=== PATIENT | male | born 1955 | race Caucasian/White ===

== ENCOUNTER 2018-10-03 17:12 | Inpatient (IN) | payer OTHER ==
[~2018-10-03] VITALS: Ht 175.3 cm; Wt 119.4 kg
[2018-10-03] MEDS ORDERED: fentaNYL PF VIAL 100 MCG/2 ML VIAL IV ONE (18:45)
[2018-10-03] MEDS ORDERED: PIPERACILLIN/TAZOBACTAM 3.375 GM in IV NORMAL SALINE 50ML 50 ML IV ONE (18:45)
[2018-10-03] MEDS ORDERED: VANCOMYCIN 1GM IVPB FOR OMNI 250 ML IV ONE (18:45)
--- NOTE | 2018-10-03 18:55 | PHYS DOC ---
Past Medical History Past Medical History: Arrhythmia, CHF, COPD, Diabetes-Type II, DVT, High Cholesterol, Hypertension Additional Past Medical Histor: PE (ERIC DE LA PAZ) Past Surgical History: Other Additional Past Surgical Histo: R foot bone spur,ICD (ERIC DE LA PAZ) Alcohol Use: Rarely Drug Use: Marijuana (ERIC DE LA PAZ) Adult General Chief Complaint Chief Complaint: LOWER EXTREMITY SWELLING HPI HPI Patient is a 63 year old M who is here with extensive right lower leg redness, swelling and pain. He reports that this all started last week and he denies any known injury. He went to see his PCP, Dr. Poole, on the and he had a PCN shot and was started on Augmentin. He saw him again yesterday the and he added Clindamycin. When they called today to say it was worse, he recommended they come to ER. Pt has had a prior DVT and PE. He is on coumadin and per report he recently held his medicine for a couple of days because his INR was very high. Pt is also diabetic and has hx of CHF. Pt denies CP or SOB. He does feel weaker then normal and states his leg is very painful. (ERIC DE LA PAZ) Review of Systems Review of Systems Constitutional: Denies fever or chills. Reports weakness Respiratory: Denies cough or shortness of breath Cardiovascular: Denies chest pain GI: Denies abdominal pain, nausea, vomiting, bloody stools or diarrhea : Denies dysuria or hematuria Musculoskeletal: Denies back pain. Reports R lower leg pain from below knee to toes. Integument: Reports redness of lower leg and foot with sores. Neurologic: Denies headache, focal weakness or sensory changes Endocrine: Denies polyuria or polydipsia All other systems were reviewed and found to be within normal limits, except as documented in this note. (ERIC DE LA PAZ) Current Medications Current Medications Current Medications Medications (Trade) Dose Ordered Sig/Lily Start Time Stop Time Status Last Admin Dose Admin Fentanyl Citrate (Fentanyl 2ml Vial) 50 mcg 1X ONCE 10/03/18 18:45 10/03/18 18:46 DC 10/03/18 19:02 50 MCG Piperacillin Sod/ Tazobactam Sod 3.375 gm/Sodium Chloride 50 ml @ 100 mls/hr 1X ONCE 10/03/18 18:45 10/03/18 19:14 DC 10/03/18 19:29 100 MLS/HR Vancomycin HCl 250 ml @ 250 mls/hr 1X ONCE 10/03/18 18:45 10/03/18 19:44 DC 10/03/18 20:21 250 MLS/HR (ALANNA TRUONG DO) Allergies Allergies Allergies Coded Allergies Type Severity Reaction Last Updated Verified [place] And Derivatives Allergy Intermediate "scratchy throat" 10/03/18 Yes (ALANNA TRUONG DO) Physical Exam Physical Exam Constitutional: Well developed, well nourished, no acute distress, non-toxic appearance. Neck: Normal range of motion, no tenderness, supple, no stridor. Cardiovascular:Heart rate regular rhythm, no murmur Lungs & Thorax: Bilateral breath sounds clear to auscultation Abdomen: Bowel sounds normal, soft, no tenderness, no masses, no pulsatile masses. Skin: Erythema of lower R leg and foot. Callous on Great toe and on bottom of foot. Blisters with pustules on lower calf. Back: No tenderness, no CVA tenderness. Extremities: Tenderness of R lower leg and foot. Neurologic: Alert and oriented X 3, normal motor function, normal sensory function, no focal deficits noted. Psychologic: Affect normal, judgement normal, mood normal. (ERIC DE LA PAZ) Current Patient Data Vital Signs Vital Signs Date Time Temp Pulse Resp B/P (MAP) Pulse Ox O2 Delivery O2 Flow Rate FiO2 10/03/18 19:30 80 18 138/76 (96) 95 Room Air 10/03/18 18:22 98.4 98.4 (ALANNA TRUONG DO) Lab Values Laboratory Tests Test 10/03/18 18:55 White Blood Count 10.1 x10^3/uL (4.0-11.0) Red Blood Count 3.87 x10^6/uL (4.30-5.70) L Hemoglobin 11.9 g/dL (13.0-17.5) L Hematocrit 35.1 % (39.0-53.0) L Mean Corpuscular Volume 91 fL (79-100) Mean Corpuscular Hemoglobin 31 pg (25-35) Mean Corpuscular Hemoglobin Concent 34 g/dL (31-37) Red Cell Distribution Width 13.6 % (11.5-14.5) Platelet Count 413 x10^3/uL (140-400) H Neutrophils (%) (Auto) 80 % (31-73) H Lymphocytes (%) (Auto) 12 % (24-48) L Monocytes (%) (Auto) 5 % (0-9) Eosinophils (%) (Auto) 2 % (0-3) Basophils (%) (Auto) 1 % (0-3) Neutrophils # (Auto) 8.1 x10^3uL (1.8-7.7) H Lymphocytes # (Auto) 1.2 x10^3/uL (1.0-4.8) Monocytes # (Auto) 0.5 x10^3/uL (0.0-1.1) Eosinophils # (Auto) 0.2 x10^3/uL (0.0-0.7) Basophils # (Auto) 0.1 x10^3/uL (0.0-0.2) Erythrocyte Sedimentation Rate 125 (0-15) H Prothrombin Time 33.2 SEC (11.7-14.0) H Prothrombin Time INR 3.3 (0.8-1.1) H PTT 81 SEC (24-38) H Sodium Level 135 mmol/L (136-145) L Potassium Level 5.0 mmol/L (3.5-5.1) Chloride Level 97 mmol/L (98-107) L Carbon Dioxide Level 23 mmol/L (21-32) Anion Gap 15 (6-14) H Blood Urea Nitrogen 17 mg/dL (8-26) Creatinine 1.0 mg/dL (0.7-1.3) Estimated GFR (Cockcroft-Gault) 76.0 BUN/Creatinine Ratio 17 (6-20) Glucose Level 144 mg/dL (70-99) H Lactic Acid Level 1.4 mmol/L (0.4-2.0) Calcium Level 9.7 mg/dL (8.5-10.1) Total Bilirubin 0.4 mg/dL (0.2-1.0) Aspartate Amino Transferase (AST) 24 U/L (15-37) Alanine Aminotransferase (ALT) 23 U/L (16-63) Alkaline Phosphatase 108 U/L (46-116) C-Reactive Protein, Quantitative 67.2 mg/L (0-3.3) H Total Protein 8.1 g/dL (6.4-8.2) Albumin 3.3 g/dL (3.4-5.0) L Albumin/Globulin Ratio 0.7 (1.0-1.7) L Laboratory Tests 10/03/18 18:55 Laboratory Tests 10/03/18 18:55 Microbiology 10/03/18 Blood Culture - Preliminary, Resulted NO GROWTH AFTER 2 DAYS (ALANNA TRUONG DO) Lab Values Laboratory Tests Test 10/03/18 18:55 White Blood Count 10.1 x10^3/uL (4.0-11.0) Red Blood Count 3.87 x10^6/uL (4.30-5.70) L Hemoglobin 11.9 g/dL (13.0-17.5) L Hematocrit 35.1 % (39.0-53.0) L Mean Corpuscular Volume 91 fL (79-100) Mean Corpuscular Hemoglobin 31 pg (25-35) Mean Corpuscular Hemoglobin Concent 34 g/dL (31-37) Red Cell Distribution Width 13.6 % (11.5-14.5) Platelet Count 413 x10^3/uL (140-400) H Neutrophils (%) (Auto) 80 % (31-73) H Lymphocytes (%) (Auto) 12 % (24-48) L Monocytes (%) (Auto) 5 % (0-9) Eosinophils (%) (Auto) 2 % (0-3) Basophils (%) (Auto) 1 % (0-3) Neutrophils # (Auto) 8.1 x10^3uL (1.8-7.7) H Lymphocytes # (Auto) 1.2 x10^3/uL (1.0-4.8) Monocytes # (Auto) 0.5 x10^3/uL (0.0-1.1) Eosinophils # (Auto) 0.2 x10^3/uL (0.0-0.7) Basophils # (Auto) 0.1 x10^3/uL (0.0-0.2) Erythrocyte Sedimentation Rate 125 (0-15) H Prothrombin Time 33.2 SEC (11.7-14.0) H Prothrombin Time INR 3.3 (0.8-1.1) H PTT 81 SEC (24-38) H Sodium Level 135 mmol/L (136-145) L Potassium Level 5.0 mmol/L (3.5-5.1) Chloride Level 97 mmol/L (98-107) L Carbon Dioxide Level 23 mmol/L (21-32) Anion Gap 15 (6-14) H Blood Urea Nitrogen 17 mg/dL (8-26) Creatinine 1.0 mg/dL (0.7-1.3) Estimated GFR (Cockcroft-Gault) 76.0 BUN/Creatinine Ratio 17 (6-20) Glucose Level 144 mg/dL (70-99) H Lactic Acid Level 1.4 mmol/L (0.4-2.0) Calcium Level 9.7 mg/dL (8.5-10.1) Total Bilirubin 0.4 mg/dL (0.2-1.0) Aspartate Amino Transferase (AST) 24 U/L (15-37) Alanine Aminotransferase (ALT) 23 U/L (16-63) Alkaline Phosphatase 108 U/L (46-116) C-Reactive Protein, Quantitative 67.2 mg/L (0-3.3) H Total Protein 8.1 g/dL (6.4-8.2) Albumin 3.3 g/dL (3.4-5.0) L Albumin/Globulin Ratio 0.7 (1.0-1.7) L Laboratory Tests 10/03/18 18:55 Laboratory Tests 10/03/18 18:55 (ERIC DE LA PAZ) EKG EKG [] (ERIC DE LA PAZ) Radiology/Procedures Radiology/Procedures US neg for DVT Xrays pending (ERIC DE LA PAZ) Course & Med Decision Making Course & Med Decision Making Pertinent Labs and Imaging studies reviewed. (See chart for details) Pt will be admitted for IV antibiotics since he has failed outpt therapy. IV Vanc and Zosyn ordered along with pain medicine. Admitted to Dr. Mckeon, who was condenser setter for Dr. Poole. (ERIC DE LA PAZ) Dragon Disclaimer Dragon Disclaimer This electronic medical record was generated, in whole or in part, using a voice recognition dictation system. (ERIC DE LA PAZ) Departure Departure Impression: Primary Impression: Cellulitis, leg Disposition: ADMITTED INPATIENT Admitting Physician: Minh Mckeon (ERIC DE LA PAZ) Condition: IMPROVED Attending Signature Attending Signature I have reviewed the PA/UNION CARPENTER's note and plan of care. I was available for consultation as needed during the patient's visit in the emergency department. I agree with the clinical impression, plan, and disposition. (ALANNA TRUONG DO) ERIC DE LA PAZ Oct 03, 2018 18:55 ALANNA TRUONG DO Oct 06, 2018 15:47
[2018-10-03 19:09] LABS: BASO # 0.1 x10^3/uL (0.0-0.2); BASO % 1 % (0-3); EOS # 0.2 x10^3/uL (0.0-0.7); EOS % 2 % (0-3); HEMATOCRIT 35.1 % (39.0-53.0); HEMOGLOBIN 11.9 g/dL (13.0-17.5); LYMPH # 1.2 x10^3/uL (1.0-4.8); LYMPH % 12 % (24-48); MEAN CORPUSCULAR HEMOGLOBIN 31 pg (25-35); MEAN CORPUSCULAR HGB CONC 34 g/dL (31-37); MEAN CORPUSCULAR VOLUME 91 fL (79-100); MONO # 0.5 x10^3/uL (0.0-1.1); MONO % 5 % (0-9); NEUT # 8.1 x10^3uL (1.8-7.7); NEUT % 80 % (31-73); PLATELET COUNT 413 x10^3/uL (140-400); RED BLOOD COUNT 3.87 x10^6/uL (4.30-5.70); RED CELL DISTRIBUTION WIDTH 13.6 % (11.5-14.5); WHITE BLOOD COUNT 10.1 x10^3/uL (4.0-11.0)
[2018-10-03 19:26] LABS: CALCIUM 9.7 mg/dL (8.5-10.1)
[2018-10-03 19:32] LABS: ALBUMIN 3.3 g/dL (3.4-5.0); ALBUMIN/GLOBULIN RATIO 0.7 (1.0-1.7); C-REACTIVE PROTEIN 67.2 mg/L (0-3.3); TOTAL BILIRUBIN 0.4 mg/dL (0.2-1.0); TOTAL PROTEIN 8.1 g/dL (6.4-8.2)
--- NOTE | 2018-10-03 19:43 | RAD ---
Right Lower Extremity Venous Doppler Ultrasound History: Red hot tender leg and foot Comparison: None Procedure: Color flow, duplex, spectral analysis and 2D images are obtained with and without compression in the area of the common femoral vein, superficial femoral vein - femoral vein junction, main femoral vein (superficial femoral vein) and popliteal vein. Veins of the proximal calf are also imaged. Findings: There is normal duplex flow, color flow and compressibility of all visualized vein segments. No evidence of deep venous thrombus is present. There is multiple mildly enlarged lymph nodes in the right groin. There is soft tissue edema. Impression: No evidence of DVT. Lymphadenopathy in the right groin likely reactive. Electronically signed by: Be Jones III, MD (10/03/2018 7:40 PM) [facility]
[2018-10-03] MEDS ORDERED: MORPHINE SULFATE 4 MG/ML VIAL. IV ONE (19:45)
[2018-10-03] MEDS ORDERED: ONDANSETRON PF 4 MG/2 ML VIAL. IV PRN (19:45)
[2018-10-03 19:47] LABS: PROTHROMBIN TIME PATIENT 33.2 SEC (11.7-14.0)
[2018-10-03] MEDS ORDERED: DEXTROSE 50% 25 GM / 50ML DISP.SYRIN. IV PRN (20:15)
[2018-10-03 21:05] VITALS: BP 154/57
--- NOTE | 2018-10-03 21:15 | NUR ---
The patient, NIALL FORDE, 63 y/o, M admitted by VALENTÍN STOVALL MD, was given written information regarding hospital policies, unit procedures and contact persons. Valuables were checked and left with him.
[2018-10-03] MEDS: MORPHINE SULFATE 4 MG/ML VIAL. IV PRN (22:13)
--- NOTE | 2018-10-03 22:50 | RAD ---
3 views right foot and 2 views right tibia-fibula HISTORY: Swelling and redness lateral mid tibia fibula wound To his right tibia-fibula AP lateral views There is calcification within the soft tissues. The visualized osseous structures appear normal. IMPRESSION: No acute bony abnormality identified. End impression 3 views right foot: AP lateral oblique views The visualized osseous structures appear normal. IMPRESSION: No acute findings. Electronically signed by: Be Jones III, MD (10/03/2018 10:46 PM) [facility]
[2018-10-03 22:59] VITALS: BP 126/51
[2018-10-04] VITALS (7 sets, daily range): BP systolic 118–143; BP diastolic 51–70
[2018-10-04] MEDS ORDERED: TRAM50TA PO (00:08)
[2018-10-04] MEDS: MORPHINE SULFATE 4 MG/ML VIAL. IV PRN ×3 (00:30→04:36)
--- NOTE | 2018-10-04 02:24 | NUR ---
will bring in medication list this morning.
[2018-10-04] MEDS: oxyCODONE/APAP 5/325 1 TAB TABLET PO PRN (04:57)
[2018-10-04] MEDS ORDERED: MORPHINE SULFATE 2 MG/ML VIAL. IV PRN (05:00)
[2018-10-04] MEDS ORDERED: MORPHINE SULFATE 4 MG/ML VIAL. IV PRN (05:00)
[2018-10-04] MEDS ORDERED: DEXTROSE 50% 25 GM / 50ML DISP.SYRIN. IV PRN (07:30)
[2018-10-04] MEDS: HYDROmorphone 2 MG/ML VIAL IV PRN ×9 (07:31→23:15)
--- NOTE | 2018-10-04 07:33 | PDOC1 ---
History and Physical Date of Admission Date of Admission 10/03/18 Identification/Chief Complaint Chief Complaint Leg Infection Source Source: Patient History of Present Illness History of Present Illness Pt states that he started to get an infection on his right lower leg sometime last week, probably around Sunday. Went to see Dr. Poole on Sunday and was started on Augmentin. Pt states that the infection continued to worsen so came back in on Sunday and antibiotic was changed to Clindamcyin. Redness, and more importantly to patient, pain, continued to worsen which brought pt to ER last night. He was admitted for failed outpatient treatment and started on Vancomycin (although given low dose) and Zosyn. He says that the redness has not improved and that the pain is worsening. He has a few healing ulcerations on his right leg but he says that those only recently came up. He does not remember any specific injury or break in the skin. He does not have history of poor wound healing. He has had a DVT in that right leg years ago with normal U/S this admission. Past Medical History Cardiovascular: HTN, Hyperlipidemia, Other (Cardiomyopathy) Pulmonary: COPD CENTRAL NERVOUS SYSTEM: Periperal neuropathy GI: Constipation Heme/Onc: No pertinent hx Hepatobiliary: No pertinent hx Psych: No pertinent hx Rheumatologic: No pertinent hx Infectious disease: No pertinent hx ENT: No pertinent hx Renal/: No pertinent hx Endocrine: Diabetes Dermatology: No pertinent hx Past Surgical History Past Surgical History: Pacemaker, Cataract Removal Family History Family History: Other (DVT) Social History Smoke: Quit ALCOHOL: none Drugs: None Current Problem List Problem List Problems Medical Problems: (1) Cellulitis, leg Status: Acute Current Medications Current Medications Current Medications Medications (Trade) Dose Ordered Sig/Lily Start Time Stop Time Status Last Admin Dose Admin Dextrose (Dextrose 50%-Water Syringe) 12.5 gm PRN Q15MIN PRN 10/03/18 20:15 Fentanyl Citrate (Fentanyl 2ml Vial) 50 mcg 1X ONCE 10/03/18 18:45 10/03/18 18:46 DC 10/03/18 19:02 50 MCG Morphine Sulfate (Morphine Sulfate) 4 mg PRN Q4HRS PRN 10/04/18 05:00 Ondansetron HCl (Zofran) 4 mg PRN Q8HRS PRN 10/03/18 19:45 10/04/18 19:44 Oxycodone/ Acetaminophen (Percocet 5/325) 1 tab PRN Q6HRS PRN 10/04/18 05:00 10/04/18 04:57 1 TAB Piperacillin Sod/ Tazobactam Sod 3.375 gm/Sodium Chloride 50 ml @ 100 mls/hr 1X ONCE 10/03/18 18:45 10/03/18 19:14 DC 10/03/18 19:29 100 MLS/HR Vancomycin HCl 250 ml @ 250 mls/hr 1X ONCE 10/03/18 18:45 10/03/18 19:44 DC 10/03/18 20:21 250 MLS/HR Allergies Allergies Allergies Coded Allergies Type Severity Reaction Last Updated Verified [place] And Derivatives Allergy Intermediate "scratchy throat" 10/03/18 Yes ROS Review of System CONSTITUTIONAL: No fever or chills EYES: No recent changes SKIN: See HPI CARDIOVASCULAR: No chest pain, syncope, palpitations, or edema RESPIRATORY: No SOB or cough GASTROINTESTINAL: No nausea, abdominal pain +vomiting once 2 weeks ago, pt unsure why NEUROLOGICAL: No headaches or weakness ENDOCRINE: No cold or heat intolerance GENITOURINARY: No urgency or frequency of urination MUSCULOSKELETAL: No back pain or joint pain LYMPHATICS: No enlarged lymph nodes PSYCHIATRIC: No anxiety or depression Physical Exam Physical Exam GEN.: No apparent distress. Alert and oriented. HEENT: Head is normocephalic, atraumatic NECK: Supple. LUNGS: Clear to auscultation. HEART: RRR, S1, S2 present. Peripheral pulses intact ABDOMEN: Soft, nontender. Positive bowel sounds. Distended EXTREMITIES: RLE edematous and erythematous to approximately 4inches below knee. Extremely tender even to slightest touch. Healing wounds on both medial and lateral aspect of RLE NEUROLOGIC: Normal speech, normal tone PSYCHIATRIC: Normal affect, normal mood. SKIN: No ulcerations Vitals Vitals Vital Signs Date Time Temp Pulse Resp B/P (MAP) Pulse Ox O2 Delivery O2 Flow Rate FiO2 10/04/18 05:57 18 94 Room Air 10/04/18 03:00 98.4 74 135/51 (79) 98.4 Labs Labs Laboratory Tests Test 10/03/18 18:55 10/03/18 21:21 White Blood Count 10.1 x10^3/uL (4.0-11.0) Red Blood Count 3.87 x10^6/uL (4.30-5.70) Hemoglobin 11.9 g/dL (13.0-17.5) Hematocrit 35.1 % (39.0-53.0) Mean Corpuscular Volume 91 fL (79-100) Mean Corpuscular Hemoglobin 31 pg (25-35) Mean Corpuscular Hemoglobin Concent 34 g/dL (31-37) Red Cell Distribution Width 13.6 % (11.5-14.5) Platelet Count 413 x10^3/uL (140-400) Neutrophils (%) (Auto) 80 % (31-73) Lymphocytes (%) (Auto) 12 % (24-48) Monocytes (%) (Auto) 5 % (0-9) Eosinophils (%) (Auto) 2 % (0-3) Basophils (%) (Auto) 1 % (0-3) Neutrophils # (Auto) 8.1 x10^3uL (1.8-7.7) Lymphocytes # (Auto) 1.2 x10^3/uL (1.0-4.8) Monocytes # (Auto) 0.5 x10^3/uL (0.0-1.1) Eosinophils # (Auto) 0.2 x10^3/uL (0.0-0.7) Basophils # (Auto) 0.1 x10^3/uL (0.0-0.2) Erythrocyte Sedimentation Rate 125 (0-15) Prothrombin Time 33.2 SEC (11.7-14.0) Prothromb Time International Ratio 3.3 (0.8-1.1) Activated Partial Thromboplast Time 81 SEC (24-38) Sodium Level 135 mmol/L (136-145) Potassium Level 5.0 mmol/L (3.5-5.1) Chloride Level 97 mmol/L (98-107) Carbon Dioxide Level 23 mmol/L (21-32) Anion Gap 15 (6-14) Blood Urea Nitrogen 17 mg/dL (8-26) Creatinine 1.0 mg/dL (0.7-1.3) Estimated GFR (Cockcroft-Gault) 76.0 BUN/Creatinine Ratio 17 (6-20) Glucose Level 144 mg/dL (70-99) Lactic Acid Level 1.4 mmol/L (0.4-2.0) Calcium Level 9.7 mg/dL (8.5-10.1) Total Bilirubin 0.4 mg/dL (0.2-1.0) Aspartate Amino Transf (AST/SGOT) 24 U/L (15-37) Alanine Aminotransferase (ALT/SGPT) 23 U/L (16-63) Alkaline Phosphatase 108 U/L (46-116) C-Reactive Protein, Quantitative 67.2 mg/L (0-3.3) Total Protein 8.1 g/dL (6.4-8.2) Albumin 3.3 g/dL (3.4-5.0) Albumin/Globulin Ratio 0.7 (1.0-1.7) Glucose (Fingerstick) 122 mg/dL (70-99) Laboratory Tests Test 10/03/18 18:55 10/03/18 21:21 White Blood Count 10.1 x10^3/uL (4.0-11.0) Red Blood Count 3.87 x10^6/uL (4.30-5.70) Hemoglobin 11.9 g/dL (13.0-17.5) Hematocrit 35.1 % (39.0-53.0) Mean Corpuscular Volume 91 fL (79-100) Mean Corpuscular Hemoglobin 31 pg (25-35) Mean Corpuscular Hemoglobin Concent 34 g/dL (31-37) Red Cell Distribution Width 13.6 % (11.5-14.5) Platelet Count 413 x10^3/uL (140-400) Neutrophils (%) (Auto) 80 % (31-73) Lymphocytes (%) (Auto) 12 % (24-48) Monocytes (%) (Auto) 5 % (0-9) Eosinophils (%) (Auto) 2 % (0-3) Basophils (%) (Auto) 1 % (0-3) Neutrophils # (Auto) 8.1 x10^3uL (1.8-7.7) Lymphocytes # (Auto) 1.2 x10^3/uL (1.0-4.8) Monocytes # (Auto) 0.5 x10^3/uL (0.0-1.1) Eosinophils # (Auto) 0.2 x10^3/uL (0.0-0.7) Basophils # (Auto) 0.1 x10^3/uL (0.0-0.2) Erythrocyte Sedimentation Rate 125 (0-15) Prothrombin Time 33.2 SEC (11.7-14.0) Prothromb Time International Ratio 3.3 (0.8-1.1) Activated Partial Thromboplast Time 81 SEC (24-38) Sodium Level 135 mmol/L (136-145) Potassium Level 5.0 mmol/L (3.5-5.1) Chloride Level 97 mmol/L (98-107) Carbon Dioxide Level 23 mmol/L (21-32) Anion Gap 15 (6-14) Blood Urea Nitrogen 17 mg/dL (8-26) Creatinine 1.0 mg/dL (0.7-1.3) Estimated GFR (Cockcroft-Gault) 76.0 BUN/Creatinine Ratio 17 (6-20) Glucose Level 144 mg/dL (70-99) Lactic Acid Level 1.4 mmol/L (0.4-2.0) Calcium Level 9.7 mg/dL (8.5-10.1) Total Bilirubin 0.4 mg/dL (0.2-1.0) Aspartate Amino Transf (AST/SGOT) 24 U/L (15-37) Alanine Aminotransferase (ALT/SGPT) 23 U/L (16-63) Alkaline Phosphatase 108 U/L (46-116) C-Reactive Protein, Quantitative 67.2 mg/L (0-3.3) Total Protein 8.1 g/dL (6.4-8.2) Albumin 3.3 g/dL (3.4-5.0) Albumin/Globulin Ratio 0.7 (1.0-1.7) Glucose (Fingerstick) 122 mg/dL (70-99) VTE Prophylaxis Ordered VTE Prophylaxis Devices: No VTE Pharmacological Prophylaxi: Yes Assessment/Plan Assessment/Plan Pt is a 63yo CM admitted for cellulitis with outpatient failure 1)Cellulitis- pt started on Vancomycin and Zosyn last night but given small dose of Vancomycin. Will continue abx with higher dosage of Vancomycin. Will change Morphine to Dilaudid for pain control and have percocet available as well. Pt normally takes Tramadol. U/S WNL LE Doppler pending 2)DM2- BS well controlled in hospital. HbA1C pending. Pt continued on home medications of metformin 500mg TID, Tradjenta 5mg qday, Lantus 32units (in place of Basaglar) QHS. Will hold pt's bydureon Will have SSI available as needed 3)HTN- well controlled. Will continue home medications of Carvedilol 25mg BID, Lisionpril 20mg qday, Spironolactone 25mg 1.5 tabs daily and Lasix 20mg qday 4)Cardiomyopathy- AICD in place. No recent ECHOs in computer 5)HLD- pt continued on Simvastatin 20mg 6)COPD- pt will be on Budesonide and albuterol during hospitalization. Normally takes Tudorza 7)Hx DVT/PE- continued on Warfarin 4mg. INR currently mildly elevated, CTM 8)Diabetic peripheral neuropathy- pt continued on Gabapentin 300mg TID 9)Constipation- will have Miralax available as needed 10)Anemia- mild, CTM 11)Hyponatremia- mild, CTM 12)PEM- mild VALENTÍN STOVALL MD Oct 04, 2018 07:33
[2018-10-04] MEDS: BUDESONIDE 0.5 MG/2 ML NEBU. NEB SCH ×2 (08:00→20:33)
[2018-10-04] MEDS: INSULIN LISPRO 300 UNITS/3 ML INSULN.PEN. SQ SCH ×3 (08:00→17:00)
[2018-10-04] MEDS: VANCOMYCIN PER PHARMACY MC PRN (08:09)
--- NOTE | 2018-10-04 08:13 | NUR ---
Pharmacy Vancomycin Dosing Note S:Consulted to monitor and dose vancomycin started 10/04/18. O:NIALL FORDE is a 63 year old M with Cellulitis Height: 5 feet, 9 inches Weight: 119.9 kg [place] Body Weight: 70.70 Adjusted Body Weight: 90.38 Dosing Weight: Actual Other Antibiotics: zosyn LABS: Last BUN: 17 Last Creatinine: 1 Creatinine Clearance: 99 mL/min Last WBC: 10.1 Last Procalcitonin: Tmax (past 24 hours): 98.4 Microbiology: - I/O: 900/500 Drug Levels: Last level: on at Last dose given at Vancomycin Dosing: Loading Dose: x1 Dosing Weight: Actual Target Trough: 10-20 A: Based on: weight and renal function P: 1. Begin Vancomycin 1750 mg IV q12h 2. Follow up Trough level on 10/05/18 at 1930 3. Pharmacy will continue to monitor, follow and adjust therapy as needed. Denisha Washington Hilaria, 10/04/18 0813
[2018-10-04] MEDS: CARVEDILOL 12.5 MG TABLET. PO SCH ×2 (08:28→17:02)
[2018-10-04] MEDS: PIPERACILLIN/TAZOBACTAM 3.375 GM in IV NORMAL SALINE 50ML 50 ML IV SCH ×3 (08:28→19:18)
[2018-10-04] MEDS: POLYETHYLENE GLYCOL 3350 17 GM PACKET. PO SCH (08:29)
[2018-10-04] MEDS: SPIRONOLACTONE 25 MG TABLET PO SCH (08:29)
[2018-10-04] MEDS: metFORMIN 500 MG TABLET PO SCH ×3 (08:29→17:01)
[2018-10-04] MEDS: FUROSEMIDE 20 MG TABLET PO SCH (08:29)
[2018-10-04] MEDS: GABAPENTIN 300 MG CAPSULE. PO SCH ×3 (08:29→23:15)
[2018-10-04] MEDS: LINAGLIPTIN 5 MG TABLET PO SCH (08:30)
[2018-10-04] MEDS: FLUTICASONE 50MCG/NASAL SPRAY 16GM BOTTLE. NS SCH (08:30)
[2018-10-04] MEDS: LISINOPRIL 20 MG TABLET PO SCH (08:30)
[2018-10-04] MEDS: VANCOMYCIN 1.75 GM in IV NORMAL SALINE 500ML BAG 500 ML IV SCH ×2 (10:17→20:48)
[2018-10-04 10:23] LABS: PROTHROMBIN TIME PATIENT 31.1 SEC (11.7-14.0)
--- NOTE | 2018-10-04 12:50 | NUR ---
Wound Care Pt seen for wound care consultation re: a RLE wound. Pt has a R lateral lower leg wound, crusty, indurated, but appears to have drained a small amount. Area is very painful to touch, hot and dark red in appearance. Wound cleaned and redressed with Medihoney to help soften the crusted scab, vasoline gauze and a foam dressing, rec. change every 3-4 days. If area doesn't open on it's own, pt may need a surgical consult for I&D, will f/u with pt next week for re-evaluation.
--- NOTE | 2018-10-04 13:45 | RAD ---
Right lower extremity arterial duplex ultrasound study without comparison for nonhealing ulcer of the right lateral ankle, leg pain. TECHNIQUE AND FINDINGS: Real-time grayscale and color and spectral Doppler evaluation of the right lower extremity is performed. There is bulky calcified atherosclerosis in all distributions. Monophasic flow is seen in all distributions as well suggesting aortoiliac inflow disease. There is focal elevation of velocity within the distal SFA which likely signifies a hemodynamically significant stenosis in this region as well. Flow is present within the posterior tibial, and peroneal arteries, though not seen within the anterior tibial artery. Collaterals are seen within the catheter. The dorsalis pedis artery is patent. IMPRESSION: 1. Bulky multifocal atherosclerosis. Findings suggest hemodynamically significant aortoiliac inflow disease, at least one hemodynamically significant stenosis within the SFA, and occlusion of the anterior tibial artery. Electronically signed by: Kranthi Scott MD (10/04/2018 1:42 PM) [id number]
[2018-10-04] MEDS: WARFARIN 4 MG TABLET. PO SCH (17:01)
[2018-10-04] MEDS ORDERED: IOHEXOL 350 MG/ML 100 ML VIAL. IV ONE (19:45)
[2018-10-04] MEDS ORDERED: CONTRAST GIVEN. MC PRN (19:45)
[2018-10-04] MEDS: INSULIN GLARGINE 300 UNITS/3 ML INSULN.PEN. SQ SCH (20:54)
[2018-10-04 23:13] LABS: HEMOGLOBIN A1C 10.4 % (4.8-5.6)
[2018-10-04] MEDS: MONTELUKAST SODIUM 10 MG TABLET. PO SCH (23:15)
[2018-10-04] MEDS: SIMVASTATIN 20 MG TABLET PO SCH (23:15)
[2018-10-04] MEDS: ZOLPIDEM 5 MG TABLET. PO PRN (23:15)
[2018-10-05] MEDS: PIPERACILLIN/TAZOBACTAM 3.375 GM in IV NORMAL SALINE 50ML 50 ML IV SCH ×5 (00:23→17:29)
[2018-10-05 03:00] VITALS: BP 134/57
[2018-10-05 04:36] LABS: BASO % 0 % (0-3); EOS # 0.2 x10^3/uL (0.0-0.7); EOS % 2 % (0-3); HEMATOCRIT 32.6 % (39.0-53.0); LYMPH # 1.3 x10^3/uL (1.0-4.8); LYMPH % 12 % (24-48); MEAN CORPUSCULAR HEMOGLOBIN 31 pg (25-35); MEAN CORPUSCULAR HGB CONC 34 g/dL (31-37); MEAN CORPUSCULAR VOLUME 91 fL (79-100); MONO # 0.7 x10^3/uL (0.0-1.1); MONO % 7 % (0-9); NEUT # 8.5 x10^3uL (1.8-7.7); NEUT % 79 % (31-73); PLATELET COUNT 388 x10^3/uL (140-400); RED BLOOD COUNT 3.58 x10^6/uL (4.30-5.70); RED CELL DISTRIBUTION WIDTH 13.7 % (11.5-14.5); WHITE BLOOD COUNT 10.7 x10^3/uL (4.0-11.0)
[2018-10-05 04:43] LABS: PROTHROMBIN TIME PATIENT 27.1 SEC (11.7-14.0)
[2018-10-05 04:58] LABS: CALCIUM 9.6 mg/dL (8.5-10.1)
[2018-10-05] MEDS: HYDROmorphone 2 MG/ML VIAL IV PRN ×5 (05:59→22:20)
[2018-10-05 07:00] VITALS: BP 116/65
[2018-10-05] MEDS: INSULIN LISPRO 300 UNITS/3 ML INSULN.PEN. SQ SCH ×3 (07:43→17:27)
[2018-10-05] MEDS: BUDESONIDE 0.5 MG/2 ML NEBU. NEB SCH ×2 (08:09→19:36)
[2018-10-05] MEDS: GABAPENTIN 300 MG CAPSULE. PO SCH ×3 (08:18→20:15)
[2018-10-05] MEDS: SPIRONOLACTONE 25 MG TABLET PO SCH (08:18)
[2018-10-05] MEDS: POLYETHYLENE GLYCOL 3350 17 GM PACKET. PO SCH (08:18)
[2018-10-05] MEDS: FLUTICASONE 50MCG/NASAL SPRAY 16GM BOTTLE. NS SCH (08:18)
[2018-10-05] MEDS: FUROSEMIDE 20 MG TABLET PO SCH (08:18)
[2018-10-05] MEDS: LINAGLIPTIN 5 MG TABLET PO SCH (08:18)
[2018-10-05] MEDS: CARVEDILOL 12.5 MG TABLET. PO SCH ×2 (08:19→17:22)
[2018-10-05] MEDS: LISINOPRIL 20 MG TABLET PO SCH (08:19)
[2018-10-05] MEDS: VANCOMYCIN 1.75 GM in IV NORMAL SALINE 500ML BAG 500 ML IV SCH (08:19)
[2018-10-05 11:00] VITALS: BP 138/67
--- NOTE | 2018-10-05 11:57 | RAD ---
CT ANGIO LOWER EXTREMITY BILAT Indication: Abnormal duplex, nonhealing ulcer of the right ankle, leg pain Technique: Postcontrast CT imaging was performed of the abdomen to the level of the feet, multiplanar reconstruction images to include MIP and 3-D reconstruction images are submitted. One or more of the following individualized dose reduction techniques were utilized for this examination: 1. Automated exposure control 2. Adjustment of the mA and/or kV according to patient size 3. Use of iterative reconstruction technique. Comparison: Duplex arterial ultrasound earlier the same day Findings: Vascular findings: Abdominal aortic caliber is within normal limits without intraluminal flap. Contrast opacification of the arteries is suboptimal. There is mild plaque near the origin of the celiac artery without significant stenosis. There is some calcified plaque near the origin of the superior mesenteric artery, likely [id number] stenosis, difficult to accurately quantify given artifact. There is visualization of single renal arteries bilaterally, some plaque present, likely moderate narrowing of the proximal right renal artery by noncalcified plaque, left renal artery not significantly narrowed. Inferior mesenteric artery is visualized. There is scattered plaque of the iliac arteries bilaterally. There is [id number] narrowing of the right external iliac artery with maximal luminal diameter reduction estimated about 40-50%. There is lesser degree of mild narrowing of the left external iliac artery by plaque. Right lower extremity: There is more focal calcified plaque at the origin of the right profunda femoris artery with significant stenosis (likely greater than 90%). However there is demonstrable flow of the more distal right profunda femoris artery. There is some scattered plaque of the right superficial femoral artery, more significant plaque of the distal right superficial femoral artery as well as proximal right popliteal artery at which there is probable more significant stenosis although poorly characterized due to poor contrast opacification. There is more bulky calcified plaque of the peroneal artery proximally. There is some visualization of the anterior tibial artery and also variable visualization of the posterior tibial artery although difficult to accurately evaluate given limited contrast opacification. There is likely narrowing of the proximal aspect of the right anterior tibial artery. Dorsalis pedis artery appears to be patent. Left lower extremity: There is some plaque near the left profunda femoris artery origin with likely at least moderate narrowing. There is scattered plaque of the left superficial femoral artery, likely more significant stenosis mid to distal segments poorly characterized due to poor contrast opacification. There is also at least moderate narrowing of the proximal left popliteal artery. There is at least moderate if not severe narrowing of the proximal left peroneal artery by calcified plaque. There is some variable visualization of the left anterior tibial artery, posterior tibial artery only faintly visualized. Dorsalis pedis artery is patent. Nonvascular findings: There is no significant abnormality of the limited visualized lung bases. Lead from electronic cardiac device is noted. There is probable heterogeneity of the spleen although poorly evaluated due to artifact. There is artifact created by patient's arms near sides and also anteriorly on the right. No convincing focal abnormality is identified of the pancreas or liver. There is a gallstone. Both kidneys enhance, no hydronephrosis. There is no adrenal nodularity. Accurate evaluation of bowel is limited without oral contrast, no significant bowel dilatation, free fluid, free air. There is retained stool greater of the ascending and transverse colon. There is no significant periappendiceal inflammatory type change. There is multilevel lumbar degenerative disc disease and facet degenerative change. There is variable multilevel lumbar lateral recess stenosis. There is also multilevel lumbar neural foramina compromise. There is osteoarthritic change of the bilateral knees greater of the medial compartments bilaterally. IMPRESSION: 1. Exam is limited due to suboptimal contrast opacification. There is diffuse prominent plaque of the lower extremity arteries bilaterally resulting in multifocal stenoses most notable of the origin right profunda femoris artery, distal right superficial femoral artery and proximal right popliteal artery, mid to distal left superficial femoral artery, proximal left popliteal artery, and also of the proximal peroneal arteries bilaterally. There is some variable visualization of the posterior tibial arteries although only faintly seen on the left otherwise difficult to accurately characterize. There is visualization of the dorsalis pedis arteries bilaterally. There is mild to moderate narrowing of the right external iliac artery, mild narrowing of the left external iliac artery by plaque. Electronically signed by: Gee Stratton MD (10/05/2018 11:54 AM) [facility]
[2018-10-05] MEDS: oxyCODONE/APAP 5/325 1 TAB TABLET PO PRN ×2 (13:03→17:22)
--- NOTE | 2018-10-05 14:27 | PDOC ---
PROGRESS NOTES Subjective Subjective Patient sleeping comfortably. Reports some pain in R LE when awakened. Objective Objective Vital Signs Date Time Temp Pulse Resp B/P (MAP) Pulse Ox O2 Delivery O2 Flow Rate FiO2 10/05/18 13:03 93 Room Air 10/05/18 11:00 99.8 89 18 138/67 (90) 99.8 Intake and Output 10/05/18 07:00 Intake Total 1250 ml Output Total 601 ml Balance 649 ml Intake Oral 650 ml IV Total 600 ml Output Urine Total 601 ml # Voids 1 Physical Exam Abdomen: Normal bowel sounds, Soft, No tenderness Heart: Regular rate Extremities: Other (R LE - moderate diffuse erythema and edema, dressing in place over wound) General: Alert, Oriented X3, No acute distress Lungs: Clear to auscultation Assessment Assessment Problems Medical Problems: (1) Cellulitis, leg Status: Acute Plan Plan of Care 1. Cellulitis and ulcer R LE - failed outpatient tx, now on Zosyn and Vancomycin. Needs PICC line, ordered. 2. PAD - arteriogram yesterday showed significant PAD, will consult Vascular Surgery to help with further tx. 3. DM2 - well controlled, continue present medication. 4. HTN - controlled, continue home meds. 5. COPD - stable, nebs as ordered. 6. chronic anticoagulation - INR good, continue present Coumadin. Comment Review of Relevant I have reviewed the following items parrish (where applicable) has been applied. Labs Laboratory Tests Test 10/03/18 18:55 10/03/18 21:21 10/04/18 07:11 10/04/18 09:58 White Blood Count 10.1 x10^3/uL (4.0-11.0) Red Blood Count 3.87 x10^6/uL (4.30-5.70) Hemoglobin 11.9 g/dL (13.0-17.5) Hematocrit 35.1 % (39.0-53.0) Mean Corpuscular Volume 91 fL (79-100) Mean Corpuscular Hemoglobin 31 pg (25-35) Mean Corpuscular Hemoglobin Concent 34 g/dL (31-37) Red Cell Distribution Width 13.6 % (11.5-14.5) Platelet Count 413 x10^3/uL (140-400) Neutrophils (%) (Auto) 80 % (31-73) Lymphocytes (%) (Auto) 12 % (24-48) Monocytes (%) (Auto) 5 % (0-9) Eosinophils (%) (Auto) 2 % (0-3) Basophils (%) (Auto) 1 % (0-3) Neutrophils # (Auto) 8.1 x10^3uL (1.8-7.7) Lymphocytes # (Auto) 1.2 x10^3/uL (1.0-4.8) Monocytes # (Auto) 0.5 x10^3/uL (0.0-1.1) Eosinophils # (Auto) 0.2 x10^3/uL (0.0-0.7) Basophils # (Auto) 0.1 x10^3/uL (0.0-0.2) Erythrocyte Sedimentation Rate 125 (0-15) Prothrombin Time 33.2 SEC (11.7-14.0) 31.1 SEC (11.7-14.0) Prothromb Time International Ratio 3.3 (0.8-1.1) 3.0 (0.8-1.1) Activated Partial Thromboplast Time 81 SEC (24-38) Sodium Level 135 mmol/L (136-145) Potassium Level 5.0 mmol/L (3.5-5.1) Chloride Level 97 mmol/L (98-107) Carbon Dioxide Level 23 mmol/L (21-32) Anion Gap 15 (6-14) Blood Urea Nitrogen 17 mg/dL (8-26) Creatinine 1.0 mg/dL (0.7-1.3) Estimated GFR (Cockcroft-Gault) 76.0 BUN/Creatinine Ratio 17 (6-20) Glucose Level 144 mg/dL (70-99) Lactic Acid Level 1.4 mmol/L (0.4-2.0) Calcium Level 9.7 mg/dL (8.5-10.1) Total Bilirubin 0.4 mg/dL (0.2-1.0) Aspartate Amino Transf (AST/SGOT) 24 U/L (15-37) Alanine Aminotransferase (ALT/SGPT) 23 U/L (16-63) Alkaline Phosphatase 108 U/L (46-116) C-Reactive Protein, Quantitative 67.2 mg/L (0-3.3) Total Protein 8.1 g/dL (6.4-8.2) Albumin 3.3 g/dL (3.4-5.0) Albumin/Globulin Ratio 0.7 (1.0-1.7) Glucose (Fingerstick) 122 mg/dL (70-99) 120 mg/dL (70-99) Hemoglobin A1c 10.4 % (4.8-5.6) Test 10/04/18 11:38 10/04/18 16:18 10/04/18 20:51 10/05/18 03:25 Glucose (Fingerstick) 145 mg/dL (70-99) 141 mg/dL (70-99) 146 mg/dL (70-99) White Blood Count 10.7 x10^3/uL (4.0-11.0) Red Blood Count 3.58 x10^6/uL (4.30-5.70) Hemoglobin 11.0 g/dL (13.0-17.5) Hematocrit 32.6 % (39.0-53.0) Mean Corpuscular Volume 91 fL (79-100) Mean Corpuscular Hemoglobin 31 pg (25-35) Mean Corpuscular Hemoglobin Concent 34 g/dL (31-37) Red Cell Distribution Width 13.7 % (11.5-14.5) Platelet Count 388 x10^3/uL (140-400) Neutrophils (%) (Auto) 79 % (31-73) Lymphocytes (%) (Auto) 12 % (24-48) Monocytes (%) (Auto) 7 % (0-9) Eosinophils (%) (Auto) 2 % (0-3) Basophils (%) (Auto) 0 % (0-3) Neutrophils # (Auto) 8.5 x10^3uL (1.8-7.7) Lymphocytes # (Auto) 1.3 x10^3/uL (1.0-4.8) Monocytes # (Auto) 0.7 x10^3/uL (0.0-1.1) Eosinophils # (Auto) 0.2 x10^3/uL (0.0-0.7) Basophils # (Auto) 0.0 x10^3/uL (0.0-0.2) Prothrombin Time 27.1 SEC (11.7-14.0) Prothromb Time International Ratio 2.5 (0.8-1.1) Sodium Level 134 mmol/L (136-145) Potassium Level 4.0 mmol/L (3.5-5.1) Chloride Level 100 mmol/L (98-107) Carbon Dioxide Level 23 mmol/L (21-32) Anion Gap 11 (6-14) Blood Urea Nitrogen 13 mg/dL (8-26) Creatinine 1.0 mg/dL (0.7-1.3) Estimated GFR (Cockcroft-Gault) 76.0 Glucose Level 158 mg/dL (70-99) Calcium Level 9.6 mg/dL (8.5-10.1) Test 10/05/18 07:04 10/05/18 10:42 Glucose (Fingerstick) 128 mg/dL (70-99) 201 mg/dL (70-99) Laboratory Tests Test 10/04/18 16:18 10/04/18 20:51 10/05/18 03:25 10/05/18 07:04 Glucose (Fingerstick) 141 mg/dL (70-99) 146 mg/dL (70-99) 128 mg/dL (70-99) White Blood Count 10.7 x10^3/uL (4.0-11.0) Red Blood Count 3.58 x10^6/uL (4.30-5.70) Hemoglobin 11.0 g/dL (13.0-17.5) Hematocrit 32.6 % (39.0-53.0) Mean Corpuscular Volume 91 fL (79-100) Mean Corpuscular Hemoglobin 31 pg (25-35) Mean Corpuscular Hemoglobin Concent 34 g/dL (31-37) Red Cell Distribution Width 13.7 % (11.5-14.5) Platelet Count 388 x10^3/uL (140-400) Neutrophils (%) (Auto) 79 % (31-73) Lymphocytes (%) (Auto) 12 % (24-48) Monocytes (%) (Auto) 7 % (0-9) Eosinophils (%) (Auto) 2 % (0-3) Basophils (%) (Auto) 0 % (0-3) Neutrophils # (Auto) 8.5 x10^3uL (1.8-7.7) Lymphocytes # (Auto) 1.3 x10^3/uL (1.0-4.8) Monocytes # (Auto) 0.7 x10^3/uL (0.0-1.1) Eosinophils # (Auto) 0.2 x10^3/uL (0.0-0.7) Basophils # (Auto) 0.0 x10^3/uL (0.0-0.2) Prothrombin Time 27.1 SEC (11.7-14.0) Prothromb Time International Ratio 2.5 (0.8-1.1) Sodium Level 134 mmol/L (136-145) Potassium Level 4.0 mmol/L (3.5-5.1) Chloride Level 100 mmol/L (98-107) Carbon Dioxide Level 23 mmol/L (21-32) Anion Gap 11 (6-14) Blood Urea Nitrogen 13 mg/dL (8-26) Creatinine 1.0 mg/dL (0.7-1.3) Estimated GFR (Cockcroft-Gault) 76.0 Glucose Level 158 mg/dL (70-99) Calcium Level 9.6 mg/dL (8.5-10.1) Test 10/05/18 10:42 Glucose (Fingerstick) 201 mg/dL (70-99) Microbiology 10/03/18 Blood Culture - Preliminary, Resulted NO GROWTH AFTER 1 DAY Medications Current Medications Vancomycin HCl 250 ml @ 250 mls/hr 1X ONCE IV Last administered on 10/03/18at 20:21; Start 10/03/18 at 18:45; Stop 10/03/18 at 19:44; Status DC Piperacillin Sod/ Tazobactam Sod 3.375 gm/Sodium Chloride 50 ml @ 100 mls/hr 1X ONCE IV Last administered on 10/03/18at 19:29; Start 10/03/18 at 18:45; Stop 10/03/18 at 19:14; Status DC Fentanyl Citrate (Fentanyl 2ml Vial) 50 mcg 1X ONCE IV Last administered on 10/03/18at 19:02; Start 10/03/18 at 18:45; Stop 10/03/18 at 18:46; Status DC Morphine Sulfate (Morphine Sulfate) 4 mg 1X ONCE IV Last administered on 10/03/18at 19:48; Start 10/03/18 at 19:45; Stop 10/03/18 at 19:46; Status DC Ondansetron HCl (Zofran) 4 mg PRN Q8HRS PRN IV NAUSEA/VOMITING; Start 10/03/18 at 19:45; Stop 10/04/18 at 19:44; Status DC Morphine Sulfate (Morphine Sulfate) 4 mg PRN Q2HR PRN IV PAIN Last administered on 10/04/18at 04:36; Start 10/03/18 at 19:45; Stop 10/04/18 at 04:50; Status DC Dextrose (Dextrose 50%-Water Syringe) 12.5 gm PRN Q15MIN PRN IV SEE COMMENTS; Start 10/03/18 at 20:15; Status Cancel Morphine Sulfate (Morphine Sulfate) 2 mg PRN Q4HRS PRN IV MODERATE PAIN; Start 10/04/18 at 05:00; Stop 10/04/18 at 07:13; Status DC Morphine Sulfate (Morphine Sulfate) 4 mg PRN Q4HRS PRN IV SEVERE PAIN; Start 10/04/18 at 05:00; Stop 10/04/18 at 07:13; Status DC Oxycodone/ Acetaminophen (Percocet 5/325) 1 tab PRN Q6HRS PRN PO SEVERE PAIN Last administered on 10/05/18at 13:03; Start 10/04/18 at 05:00 Hydromorphone HCl (Dilaudid) 1 mg PRN Q1HR PRN IV SEVERE PAIN Last administered on 10/05/18at 11:58; Start 10/04/18 at 07:15 Vancomycin HCl (Vanco Per Pharmacy) 1 each PRN DAILY PRN MC SEE COMMENTS Last administered on 10/04/18at 08:09; Start 10/04/18 at 07:15 Piperacillin Sod/ Tazobactam Sod 3.375 gm/Sodium Chloride 50 ml @ 100 mls/hr Q6HRS IV Last administered on 10/05/18at 11:58; Start 10/04/18 at 07:30 Vancomycin HCl 1.75 gm/Sodium Chloride 500 ml @ 250 mls/hr Q12H IV Last administered on 10/05/18at 08:19; Start 10/04/18 at 08:00 Carvedilol (Coreg) 25 mg BIDWMEALS PO Last administered on 10/05/18at 08:19; Start 10/04/18 at 08:00 Warfarin Sodium (Coumadin) 4 mg DAILY16 PO Last administered on 10/04/18 17:01; Start 10/04/18 at 16:00 Lisinopril (Prinivil) 20 mg DAILY PO Last administered on 10/05/18 08:19; Start 10/04/18 at 09:00 Spironolactone (Aldactone) 37.5 mg DAILY PO Last administered on 10/05/18 08:18; Start 10/04/18 at 09:00 Furosemide (Lasix) 20 mg DAILY PO Last administered on 10/05/18 08:18; Start 10/04/18 at 09:00 Simvastatin (Zocor) 20 mg HS PO Last administered on 10/04/18 23:15; Start 10/04/18 at 21:00 Linagliptin (Tradjenta) 5 mg DAILY PO Last administered on 10/05/18 08:18; Start 10/04/18 at 09:00 Budesonide (Pulmicort) 0.5 mg RTBID NEB Last administered on 10/05/18 08:09; Start 10/04/18 at 08:00 Albuterol Sulfate (Ventolin Neb Soln) 2.5 mg PRN Q4HRS PRN NEB SHORTNESS OF BREATH; Start 10/04/18 at 07:30 Montelukast Sodium (Singulair) 10 mg QHS PO Last administered on 10/04/18 23:15; Start 10/04/18 at 21:00 Fluticasone Propionate (Flonase) 2 spray DAILY NS Last administered on 10/05/18 08:18; Start 10/04/18 at 09:00 Gabapentin (Neurontin) 300 mg TID PO Last administered on 10/05/18 08:18; Start 10/04/18 at 09:00 Insulin Glargine (Lantus) 32 units QHS SQ Last administered on 10/04/18 20:54; Start 10/04/18 at 21:00 Insulin Human Lispro (HumaLOG) 0-5 UNITS TIDWMEALS SQ Last administered on 10/05/18 12:02; Start 10/04/18 at 08:00 Dextrose (Dextrose 50%-Water Syringe) 12.5 gm PRN Q15MIN PRN IV SEE COMMENTS; Start 10/04/18 at 07:30 Metformin HCl (Glucophage) 500 mg TIDWMEALS PO Last administered on 10/04/18at 17:01; Start 10/04/18 at 09:00; Stop 10/04/18 at 19:37; Status DC Polyethylene Glycol (miraLAX PACKET) 17 gm DAILY PO Last administered on 10/05/18at 08:18; Start 10/04/18 at 09:00 Warfarin Sodium (Coumadin Per Physician) 1 each PRN DAILY PRN MC SEE COMMENTS Last administered on 10/04/18at 15:15; Start 10/04/18 at 08:15 Vancomycin HCl (Vancomycin Trough Level) 1 each 1X ONCE MC ; Start 10/05/18 at 19:30; Stop 10/05/18 at 19:31 Iohexol (Omnipaque 350 Mg/ml) 95 ml 1X ONCE IV Last administered on 10/04/18at 22:30; Start 10/04/18 at 19:45; Stop 10/04/18 at 19:46; Status DC Info (CONTRAST GIVEN -- Rx MONITORING) 1 each PRN DAILY PRN MC SEE COMMENTS; Start 10/04/18 at 19:45; Stop 10/06/18 at 19:44 Metformin HCl (Glucophage) 500 mg TIDWMEALS PO ; Start 10/07/18 at 08:00 Zolpidem Tartrate (Ambien) 5 mg PRN QHS PRN PO INSOMNIA Last administered on 10/04/18at 23:15; Start 10/04/18 at 22:00 Active Scripts Active Reported Tramadol Hcl 50 Mg Tablet 50 Mg PO Q6HRS PRN Vitals/I & O Vital Sign - Last 24 Hours 10/04/18 10/04/18 10/04/18 10/04/18 15:00 16:56 17:02 17:04 Temp 98.4 98.4 98.4 98.4 Pulse 80 80 80 Resp 17 B/P (MAP) 118/54 (75) 118/54 (75) 118/54 Pulse Ox 93 93 O2 Delivery Room Air Room Air Room Air 10/04/18 10/04/18 10/04/18 10/04/18 19:00 19:12 20:35 20:45 Temp 98.9 98.9 Pulse 74 Resp 18 B/P (MAP) 135/70 (91) Pulse Ox 94 93 94 O2 Delivery Room Air Room Air Room Air Room Air 10/04/18 10/04/18 10/04/18 10/04/18 20:48 22:02 23:00 23:15 Temp 98.9 98.9 Pulse 87 Resp 20 20 18 20 B/P (MAP) 122/62 (82) Pulse Ox 95 O2 Delivery Room Air Room Air Room Air Room Air 10/05/18 10/05/18 10/05/18 10/05/18 03:00 05:59 06:30 07:00 Temp 99.1 98.4 99.1 98.4 Pulse 94 80 Resp 18 20 20 18 B/P (MAP) 134/57 (82) 116/65 (82) Pulse Ox 92 94 O2 Delivery Room Air Room Air Room Air 10/05/18 10/05/18 10/05/18 10/05/18 08:10 08:19 08:19 08:20 Pulse 80 80 B/P (MAP) 116/65 116/65 Pulse Ox 94 94 O2 Delivery Room Air Room Air 10/05/18 10/05/18 10/05/18 10/05/18 09:07 11:00 11:58 13:03 Temp 99.8 99.8 Pulse 89 Resp 18 B/P (MAP) 138/67 (90) Pulse Ox 94 93 93 93 O2 Delivery Room Air Room Air Room Air Room Air Intake and Output 10/04/18 10/04/18 10/05/18 15:00 23:00 07:00 Intake Total 390 ml 810 ml 50 ml Output Total 1 ml 600 ml Balance 390 ml 809 ml -550 ml BARBARA HUTSON MD Oct 05, 2018 14:27
[2018-10-05 15:00] VITALS: BP 142/76
[2018-10-05] MEDS: WARFARIN 4 MG TABLET. PO SCH (17:21)
[2018-10-05 19:00] VITALS: BP 120/67
[2018-10-05 19:48] LABS: VANC TR 24.1 mcg/mL (10.0-20.0)
--- NOTE | 2018-10-05 19:59 | RAD ---
Examination: PORTABLE CHEST 1V History: PICC LINE Comparison/Correlation: None Findings: Portable upright frontal view chest was obtained. Right-sided PICC is noted terminating at the superior cavoatrial junction. Left-sided single lead ICD is noted. No pneumothorax. Heart size is borderline. No pneumothorax. No pleural effusion. Bony structures are unremarkable. Impression: No active disease. Right-sided PICC is in place. Electronically signed by: Jac Ritchie MD (10/05/2018 7:56 PM) [id number]
[2018-10-05] MEDS: SIMVASTATIN 20 MG TABLET PO SCH (20:15)
[2018-10-05] MEDS: MONTELUKAST SODIUM 10 MG TABLET. PO SCH (20:15)
[2018-10-05] MEDS: VANCOMYCIN PER PHARMACY MC PRN (20:19)
--- NOTE | 2018-10-05 20:23 | NUR ---
Pharmacy Vancomycin Dosing Note S: Consulted to monitor and dose vancomycin started 10/04/18. O: NIALL FORDE is a 63 year old M with Cellulitis, . Other Antibiotics: zosyn LABS: Last BUN: 13 Last Creatinine: 1 Creatinine Clearance: 99 mL/min Last WBC: 10.7 Tmax (past 24 hours): 98.4 Drug Levels: Last Trough level: 24.1 on 10/05/18 at 1915 Last dose given 10/05/18 at 0819 Vancomycin Dosing: Dosing Weight: Actual Target Trough: 10-20 A: Based on: VANCO dosing guidelines P: 1. Hold VANCO for 6 hours, then change Vancomycin to 1500 mg IV q12h 2. Follow up Trough level on 10/07/18 at 1430 3. Pharmacy will continue to monitor, follow and adjust therapy as needed. MINNIE LIU RP, 10/05/182022
[2018-10-05] MEDS: ZOLPIDEM 5 MG TABLET. PO PRN (21:27)
[2018-10-05] MEDS: INSULIN GLARGINE 300 UNITS/3 ML INSULN.PEN. SQ SCH (21:30)
[2018-10-05 23:00] VITALS: BP 127/74
[2018-10-06] MEDS: PIPERACILLIN/TAZOBACTAM 3.375 GM in IV NORMAL SALINE 50ML 50 ML IV SCH ×5 (00:40→23:52)
[2018-10-06] MEDS: VANCOMYCIN 1.5 GM in IV NORMAL SALINE 500ML BAG 500 ML IV SCH ×2 (02:08→14:39)
[2018-10-06 03:00] VITALS: BP 135/74
[2018-10-06] MEDS: HYDROmorphone 2 MG/ML VIAL IV PRN ×7 (04:38→20:33)
[2018-10-06] MEDS: oxyCODONE/APAP 5/325 1 TAB TABLET PO PRN ×3 (05:11→17:37)
[2018-10-06 07:00] VITALS: BP 112/55
[2018-10-06] MEDS: ALBUTEROL SULFATE 2.5 MG/3 ML NEBU. NEB PRN (07:19)
[2018-10-06] MEDS: BUDESONIDE 0.5 MG/2 ML NEBU. NEB SCH ×2 (07:19→19:46)
[2018-10-06] MEDS: INSULIN LISPRO 300 UNITS/3 ML INSULN.PEN. SQ SCH ×3 (07:46→16:44)
[2018-10-06] MEDS: CARVEDILOL 12.5 MG TABLET. PO SCH ×2 (08:24→16:38)
[2018-10-06] MEDS: FUROSEMIDE 20 MG TABLET PO SCH (08:24)
[2018-10-06] MEDS: GABAPENTIN 300 MG CAPSULE. PO SCH ×3 (08:25→20:33)
[2018-10-06] MEDS: LINAGLIPTIN 5 MG TABLET PO SCH (08:25)
[2018-10-06] MEDS: SPIRONOLACTONE 25 MG TABLET PO SCH (08:25)
[2018-10-06] MEDS: LISINOPRIL 20 MG TABLET PO SCH (08:25)
[2018-10-06] MEDS: POLYETHYLENE GLYCOL 3350 17 GM PACKET. PO SCH (08:26)
[2018-10-06] MEDS: FLUTICASONE 50MCG/NASAL SPRAY 16GM BOTTLE. NS SCH (08:26)
[2018-10-06 11:00] VITALS: BP 124/58
--- NOTE | 2018-10-06 11:58 | PDOC ---
PROGRESS NOTES Subjective Subjective Patient reports some improvement in pain in R LE, still needing PO and IV pain medication. Objective Objective Vital Signs Date Time Temp Pulse Resp B/P (MAP) Pulse Ox O2 Delivery O2 Flow Rate FiO2 10/06/18 11:11 Room Air 10/06/18 08:56 18 10/06/18 08:25 91 112/55 10/06/18 07:19 94 10/06/18 07:00 98.1 98.1 Intake and Output 10/06/18 06:59 Intake Total 1850 ml Output Total 1250 ml Balance 600 ml Intake Oral 1350 ml IV Total 500 ml Output Urine Total 1250 ml # Voids 1 Physical Exam Abdomen: Normal bowel sounds, Soft, No tenderness Heart: Regular rate Extremities: Other (moderate erythema and edema R LE but improved from yesterday. Dressings in place) General: Alert, Oriented X3, No acute distress Lungs: Clear to auscultation Assessment Assessment Problems Medical Problems: (1) Cellulitis, leg Status: Acute Plan Plan of Care 1. Cellulitis and ulcer R LE - some improvement in exam, continue abx and wound care. 2. PAD - await Vascular Surgery consult. 3. DM2 - fairly well controlled, continue present medications and SS insulin. 4. HTN - controlled, continue home medications. 5. COPD - stable, continue nebs as needed. 6. anticoagulation - stable, continue his usual Coumadin. Comment Review of Relevant I have reviewed the following items parrish (where applicable) has been applied. Labs Laboratory Tests Test 10/04/18 16:18 10/04/18 20:51 10/05/18 03:25 10/05/18 07:04 Glucose (Fingerstick) 141 mg/dL (70-99) 146 mg/dL (70-99) 128 mg/dL (70-99) White Blood Count 10.7 x10^3/uL (4.0-11.0) Red Blood Count 3.58 x10^6/uL (4.30-5.70) Hemoglobin 11.0 g/dL (13.0-17.5) Hematocrit 32.6 % (39.0-53.0) Mean Corpuscular Volume 91 fL (79-100) Mean Corpuscular Hemoglobin 31 pg (25-35) Mean Corpuscular Hemoglobin Concent 34 g/dL (31-37) Red Cell Distribution Width 13.7 % (11.5-14.5) Platelet Count 388 x10^3/uL (140-400) Neutrophils (%) (Auto) 79 % (31-73) Lymphocytes (%) (Auto) 12 % (24-48) Monocytes (%) (Auto) 7 % (0-9) Eosinophils (%) (Auto) 2 % (0-3) Basophils (%) (Auto) 0 % (0-3) Neutrophils # (Auto) 8.5 x10^3uL (1.8-7.7) Lymphocytes # (Auto) 1.3 x10^3/uL (1.0-4.8) Monocytes # (Auto) 0.7 x10^3/uL (0.0-1.1) Eosinophils # (Auto) 0.2 x10^3/uL (0.0-0.7) Basophils # (Auto) 0.0 x10^3/uL (0.0-0.2) Prothrombin Time 27.1 SEC (11.7-14.0) Prothromb Time International Ratio 2.5 (0.8-1.1) Sodium Level 134 mmol/L (136-145) Potassium Level 4.0 mmol/L (3.5-5.1) Chloride Level 100 mmol/L (98-107) Carbon Dioxide Level 23 mmol/L (21-32) Anion Gap 11 (6-14) Blood Urea Nitrogen 13 mg/dL (8-26) Creatinine 1.0 mg/dL (0.7-1.3) Estimated GFR (Cockcroft-Gault) 76.0 Glucose Level 158 mg/dL (70-99) Calcium Level 9.6 mg/dL (8.5-10.1) Test 10/05/18 10:42 10/05/18 16:37 10/05/18 19:15 10/05/18 20:57 Glucose (Fingerstick) 201 mg/dL (70-99) 173 mg/dL (70-99) 172 mg/dL (70-99) Vancomycin Level Trough 24.1 mcg/mL (10.0-20.0) Vancomycin Last Dose Date 10/05/18 Vancomycin Last Dose Time 0800 Test 10/06/18 07:45 10/06/18 10:45 Glucose (Fingerstick) 122 mg/dL (70-99) 218 mg/dL (70-99) Laboratory Tests Test 10/05/18 16:37 10/05/18 19:15 10/05/18 20:57 10/06/18 07:45 Glucose (Fingerstick) 173 mg/dL (70-99) 172 mg/dL (70-99) 122 mg/dL (70-99) Vancomycin Level Trough 24.1 mcg/mL (10.0-20.0) Vancomycin Last Dose Date 10/05/18 Vancomycin Last Dose Time 0800 Test 10/06/18 10:45 Glucose (Fingerstick) 218 mg/dL (70-99) Microbiology 10/03/18 Blood Culture - Preliminary, Resulted NO GROWTH AFTER 2 DAYS Medications Current Medications Vancomycin HCl 250 ml @ 250 mls/hr 1X ONCE IV Last administered on 10/03/18at 20:21; Start 10/03/18 at 18:45; Stop 10/03/18 at 19:44; Status DC Piperacillin Sod/ Tazobactam Sod 3.375 gm/Sodium Chloride 50 ml @ 100 mls/hr 1X ONCE IV Last administered on 10/03/18at 19:29; Start 10/03/18 at 18:45; Stop 10/03/18 at 19:14; Status DC Fentanyl Citrate (Fentanyl 2ml Vial) 50 mcg 1X ONCE IV Last administered on 10/03/18at 19:02; Start 10/03/18 at 18:45; Stop 10/03/18 at 18:46; Status DC Morphine Sulfate (Morphine Sulfate) 4 mg 1X ONCE IV Last administered on 10/03/18at 19:48; Start 10/03/18 at 19:45; Stop 10/03/18 at 19:46; Status DC Ondansetron HCl (Zofran) 4 mg PRN Q8HRS PRN IV NAUSEA/VOMITING; Start 10/03/18 at 19:45; Stop 10/04/18 at 19:44; Status DC Morphine Sulfate (Morphine Sulfate) 4 mg PRN Q2HR PRN IV PAIN Last administered on 10/04/18at 04:36; Start 10/03/18 at 19:45; Stop 10/04/18 at 04:50; Status DC Dextrose (Dextrose 50%-Water Syringe) 12.5 gm PRN Q15MIN PRN IV SEE COMMENTS; Start 10/03/18 at 20:15; Status Cancel Morphine Sulfate (Morphine Sulfate) 2 mg PRN Q4HRS PRN IV MODERATE PAIN; Start 10/04/18 at 05:00; Stop 10/04/18 at 07:13; Status DC Morphine Sulfate (Morphine Sulfate) 4 mg PRN Q4HRS PRN IV SEVERE PAIN; Start 10/04/18 at 05:00; Stop 10/04/18 at 07:13; Status DC Oxycodone/ Acetaminophen (Percocet 5/325) 1 tab PRN Q6HRS PRN PO SEVERE PAIN Last administered on 10/06/18 11:11; Start 10/04/18 at 05:00 Hydromorphone HCl (Dilaudid) 1 mg PRN Q1HR PRN IV SEVERE PAIN Last administered on 10/05/18at 11:58; Start 10/04/18 at 07:15; Stop 10/05/18 at 14:32; Status DC Vancomycin HCl (Vanco Per Pharmacy) 1 each PRN DAILY PRN MC SEE COMMENTS Last administered on 10/05/18at 20:19; Start 10/04/18 at 07:15 Piperacillin Sod/ Tazobactam Sod 3.375 gm/Sodium Chloride 50 ml @ 100 mls/hr Q6HRS IV Last administered on 10/06/18at 05:44; Start 10/04/18 at 07:30 Vancomycin HCl 1.75 gm/Sodium Chloride 500 ml @ 250 mls/hr Q12H IV Last administered on 10/05/18 08:19; Start 10/04/18 at 08:00; Stop 10/05/18 at 20:08; Status DC Carvedilol (Coreg) 25 mg BIDWMEALS PO Last administered on 10/06/18 08:24; Start 10/04/18 at 08:00 Warfarin Sodium (Coumadin) 4 mg DAILY16 PO Last administered on 10/05/18 17:21; Start 10/04/18 at 16:00 Lisinopril (Prinivil) 20 mg DAILY PO Last administered on 10/06/18at 08:25; Start 10/04/18 at 09:00 Spironolactone (Aldactone) 37.5 mg DAILY PO Last administered on 10/06/18at 08:25; Start 10/04/18 at 09:00 Furosemide (Lasix) 20 mg DAILY PO Last administered on 10/06/18 08:24; Start 10/04/18 at 09:00 Simvastatin (Zocor) 20 mg HS PO Last administered on 10/05/18 20:15; Start 10/04/18 at 21:00 Linagliptin (Tradjenta) 5 mg DAILY PO Last administered on 10/06/18 08:25; Start 10/04/18 at 09:00 Budesonide (Pulmicort) 0.5 mg RTBID NEB Last administered on 10/06/18 07:19; Start 10/04/18 at 08:00 Albuterol Sulfate (Ventolin Neb Soln) 2.5 mg PRN Q4HRS PRN NEB SHORTNESS OF BREATH; Start 10/04/18 at 07:30 Montelukast Sodium (Singulair) 10 mg QHS PO Last administered on 10/05/18 20:15; Start 10/04/18 at 21:00 Fluticasone Propionate (Flonase) 2 spray DAILY NS Last administered on 10/06/18 08:26; Start 10/04/18 at 09:00 Gabapentin (Neurontin) 300 mg TID PO Last administered on 10/06/18 08:25; Start 10/04/18 at 09:00 Insulin Glargine (Lantus) 32 units QHS SQ Last administered on 10/05/18 21:30; Start 10/04/18 at 21:00 Insulin Human Lispro (HumaLOG) 0-5 UNITS TIDWMEALS SQ Last administered on 10/05/18 17:27; Start 10/04/18 at 08:00 Dextrose (Dextrose 50%-Water Syringe) 12.5 gm PRN Q15MIN PRN IV SEE COMMENTS; Start 10/04/18 at 07:30 Metformin HCl (Glucophage) 500 mg TIDWMEALS PO Last administered on 10/04/18 17:01; Start 10/04/18 at 09:00; Stop 10/04/18 at 19:37; Status DC Polyethylene Glycol (miraLAX PACKET) 17 gm DAILY PO Last administered on 10/06/18 08:26; Start 10/04/18 at 09:00 Warfarin Sodium (Coumadin Per Physician) 1 each PRN DAILY PRN MC SEE COMMENTS Last administered on 10/04/18at 15:15; Start 10/04/18 at 08:15 Vancomycin HCl (Vancomycin Trough Level) 1 each 1X ONCE MC Last administered on 10/05/18at 19:30; Start 10/05/18 at 19:30; Stop 10/05/18 at 19:31; Status DC Iohexol (Omnipaque 350 Mg/ml) 95 ml 1X ONCE IV Last administered on 10/04/18at 22:30; Start 10/04/18 at 19:45; Stop 10/04/18 at 19:46; Status DC Info (CONTRAST GIVEN -- Rx MONITORING) 1 each PRN DAILY PRN MC SEE COMMENTS; Start 10/04/18 at 19:45; Stop 10/06/18 at 19:44 Metformin HCl (Glucophage) 500 mg TIDWMEALS PO ; Start 10/07/18 at 08:00 Zolpidem Tartrate (Ambien) 5 mg PRN QHS PRN PO INSOMNIA Last administered on 10/05/18at 21:27; Start 10/04/18 at 22:00 Hydromorphone HCl (Dilaudid) 0.5 mg PRN Q2HR PRN IV SEVERE PAIN Last administered on 10/06/18 10:52; Start 10/05/18 at 14:45 Vancomycin HCl 1.5 gm/Sodium Chloride 500 ml @ 250 mls/hr Q12H IV Last administered on 10/06/18at 02:08; Start 10/06/18 at 03:00 Vancomycin HCl (Vancomycin Trough Level) 1 each 1X ONCE MC ; Start 10/07/18 at 14:30; Stop 10/07/18 at 14:31 Active Scripts Active Reported Tramadol Hcl 50 Mg Tablet 50 Mg PO Q6HRS PRN Vitals/I & O Vital Sign - Last 24 Hours 10/05/18 10/05/18 10/05/18 10/05/18 11:58 13:03 15:00 17:22 Temp 99.5 99.5 Pulse 90 Resp 18 B/P (MAP) 142/76 (98) Pulse Ox 93 93 93 93 O2 Delivery Room Air Room Air Room Air Room Air 10/05/18 10/05/18 10/05/18 10/05/18 17:22 18:22 19:00 19:36 Temp 99.7 99.7 Pulse 90 90 Resp 18 B/P (MAP) 142/76 120/67 (84) Pulse Ox 93 95 94 O2 Delivery Room Air Room Air 10/05/18 10/05/18 10/05/18 10/05/18 20:00 20:15 22:20 23:00 Temp 98.4 98.4 Pulse 91 Resp 18 B/P (MAP) 127/74 (91) Pulse Ox 95 O2 Delivery Room Air Room Air Room Air Room Air 10/06/18 10/06/18 10/06/18 10/06/18 03:00 04:38 05:11 06:15 Temp 97.6 97.6 Pulse 91 Resp 18 B/P (MAP) 135/74 (94) Pulse Ox 96 O2 Delivery Room Air Room Air Room Air Room Air 10/06/18 10/06/18 10/06/18 10/06/18 07:00 07:19 08:00 08:24 Temp 98.1 98.1 Pulse 91 91 Resp 18 B/P (MAP) 112/55 (74) 112/55 Pulse Ox 96 94 O2 Delivery Room Air Room Air Room Air 10/06/18 10/06/18 10/06/18 10/06/18 08:25 08:26 08:56 10:52 Pulse 91 Resp 18 B/P (MAP) 112/55 O2 Delivery Room Air Room Air 10/06/18 10/06/18 11:11 11:11 O2 Delivery Room Air Room Air Intake and Output 10/05/18 10/05/18 10/06/18 14:59 22:59 06:59 Intake Total 900 ml 550 ml 400 ml Output Total 250 ml 700 ml 300 ml Balance 650 ml -150 ml 100 ml BARBARA HUTSON MD Oct 06, 2018 11:58
[2018-10-06 14:48] LABS: PROTHROMBIN TIME PATIENT 27.5 SEC (11.7-14.0)
[2018-10-06 15:00] VITALS: BP 122/65
[2018-10-06] MEDS: WARFARIN 4 MG TABLET. PO SCH (16:39)
[2018-10-06 19:00] VITALS: BP 109/90
[2018-10-06] MEDS: SIMVASTATIN 20 MG TABLET PO SCH (20:33)
[2018-10-06] MEDS: MONTELUKAST SODIUM 10 MG TABLET. PO SCH (20:33)
[2018-10-06] MEDS: LACTOBACILLUS RHAMNOSUS GG 1 CAPSULE. PO SCH (20:33)
[2018-10-06] MEDS: ZOLPIDEM 5 MG TABLET. PO PRN (20:43)
[2018-10-06] MEDS: INSULIN GLARGINE 300 UNITS/3 ML INSULN.PEN. SQ SCH (20:44)
[2018-10-06 23:00] VITALS: BP 130/66
[2018-10-07] MEDS: VANCOMYCIN 1.5 GM in IV NORMAL SALINE 500ML BAG 500 ML IV SCH ×2 (02:55→15:13)
[2018-10-07] MEDS: HYDROmorphone 2 MG/ML VIAL IV PRN ×10 (02:55→22:54)
[2018-10-07 03:00] VITALS: BP 131/65
[2018-10-07] MEDS: PIPERACILLIN/TAZOBACTAM 3.375 GM in IV NORMAL SALINE 50ML 50 ML IV SCH ×4 (05:06→23:00)
[2018-10-07 07:00] VITALS: BP 117/68
[2018-10-07] MEDS: oxyCODONE/APAP 5/325 1 TAB TABLET PO PRN ×3 (07:16→19:34)
[2018-10-07] MEDS: metFORMIN 500 MG TABLET PO SCH ×3 (07:56→16:50)
[2018-10-07] MEDS: GABAPENTIN 300 MG CAPSULE. PO SCH ×3 (07:56→20:30)
[2018-10-07] MEDS: LACTOBACILLUS RHAMNOSUS GG 1 CAPSULE. PO SCH ×2 (07:56→20:30)
[2018-10-07] MEDS: FUROSEMIDE 20 MG TABLET PO SCH (07:57)
[2018-10-07] MEDS: CARVEDILOL 12.5 MG TABLET. PO SCH ×2 (07:57→16:51)
[2018-10-07] MEDS: LISINOPRIL 20 MG TABLET PO SCH (07:57)
[2018-10-07] MEDS: LINAGLIPTIN 5 MG TABLET PO SCH (07:57)
[2018-10-07] MEDS: FLUTICASONE 50MCG/NASAL SPRAY 16GM BOTTLE. NS SCH (07:58)
[2018-10-07] MEDS: SPIRONOLACTONE 25 MG TABLET PO SCH (07:58)
[2018-10-07] MEDS: INSULIN LISPRO 300 UNITS/3 ML INSULN.PEN. SQ SCH ×3 (07:58→16:44)
[2018-10-07] MEDS: POLYETHYLENE GLYCOL 3350 17 GM PACKET. PO SCH (07:58)
[2018-10-07] MEDS: BUDESONIDE 0.5 MG/2 ML NEBU. NEB SCH ×2 (08:34→19:48)
[2018-10-07] MEDS: ALBUTEROL SULFATE 2.5 MG/3 ML NEBU. NEB PRN (08:34)
--- NOTE | 2018-10-07 09:00 | PDOC ---
PROGRESS NOTES Subjective He is still having right leg paibn, erythema seems better, wounds dressed. Denies chest pain, no SOA (getting neb tx), appetite ok, sugars ok, sleeping fair with Ambien, bowels moving Objective Afebrile General: A&O, comfortable Heart: Rate cotrolled Lungs: CTA Abd: obese, soft, non tender Ext: redness and edema of right lower leg with [address] Vital Signs Vital Signs Date Time Temp Pulse Resp B/P (MAP) Pulse Ox O2 Delivery O2 Flow Rate FiO2 10/07/18 08:37 97 Room Air 10/07/18 07:57 86 117/68 10/07/18 07:00 98.6 20 98.6 I & O Intake and Output 10/07/18 07:00 Intake Total 2450 ml Output Total 1200 ml Balance 1250 ml Intake Oral 1300 ml IV Total 1150 ml Output Urine Total 1200 ml Assessment and Plan (1) Cellulitis with ulcer of right leg - slow improvement in exam, continue abx and wound care. 2. PAD - likely cause of his pain. Vascular Surgery consulted. 3. DM2 - fairly well controlled, continue present medications and SS insulin. 4. HTN - controlled, continue home medications. 5. COPD - stable, continue Duoneb, budesonide. 6. 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 Todd RICH MD Oct 07, 2018 08:59
--- NOTE | 2018-10-07 10:16 | PDOC2 ---
CONSULT Date of Consult Date of Consult DATE: 10/07/18 TIME: 09:51 History of Present Illness Reason for Visit: This is a pleasant 63 year old male with history of diabetes, HTN, neuropathy, COPD who presented with right leg cellulitis x 1.5 week. This has progressively worsened over the past 1.5 week, he initially was put on PO abx by PCP, however continued to worsen. He has associated pain extending up to his right knee. He has not had anything like this before, denies history of chronic foot wounds. Prior to this episode, he reports his right leg appeared "normal, just like the left". There are now two small leg wounds, that have presented themselves since his hospitalization. Pt takes coumadin for a blood clot in his leg that he reports "moved up to his lungs" several years ago. He only reports one episode of this and reports being on coumadin ever since. Denies hx of afib. He reports he does have bilateral leg heaviness with walking, minimal cramping, he can only walk about half a block before this starts. However he also reports back pain that limits his ambulation, sometimes prior to his legs causing him to stop and rest. He used to smoke, several years ago. INR 2.6 Pt had arterial duplex and CTA done this weekend, reviewed, as described below. Surgical history: bone spur removed right heel, defibrillator in chest. Past Medical History Cardiovascular: HTN, Hyperlipidemia, Other (Cardiomyopathy) Pulmonary: COPD CENTRAL NERVOUS SYSTEM: Periperal neuropathy GI: Constipation Heme/Onc: No pertinent hx Hepatobiliary: No pertinent hx Psych: No pertinent hx Rheumatologic: No pertinent hx Infectious disease: No pertinent hx ENT: No pertinent hx Renal/: No pertinent hx Endocrine: Diabetes Dermatology: No pertinent hx Past Surgical History Past Surgical History: Pacemaker, Cataract Removal Family History Family History: Other (DVT) Social History Quit ALCOHOL: none Drugs: None Current Problem List Problem List Problems Medical Problems: (1) Cellulitis, leg Status: Acute Current Medications Current Medications Current Medications Vancomycin HCl 250 ml @ 250 mls/hr 1X ONCE IV Last administered on 10/03/18at 20:21; Start 10/03/18 at 18:45; Stop 10/03/18 at 19:44; Status DC Piperacillin Sod/ Tazobactam Sod 3.375 gm/Sodium Chloride 50 ml @ 100 mls/hr 1X ONCE IV Last administered on 10/03/18at 19:29; Start 10/03/18 at 18:45; Stop 10/03/18 at 19:14; Status DC Fentanyl Citrate (Fentanyl 2ml Vial) 50 mcg 1X ONCE IV Last administered on 10/03/18at 19:02; Start 10/03/18 at 18:45; Stop 10/03/18 at 18:46; Status DC Morphine Sulfate (Morphine Sulfate) 4 mg 1X ONCE IV Last administered on 10/03/18at 19:48; Start 10/03/18 at 19:45; Stop 10/03/18 at 19:46; Status DC Ondansetron HCl (Zofran) 4 mg PRN Q8HRS PRN IV NAUSEA/VOMITING; Start 10/03/18 at 19:45; Stop 10/04/18 at 19:44; Status DC Morphine Sulfate (Morphine Sulfate) 4 mg PRN Q2HR PRN IV PAIN Last administered on 10/04/18at 04:36; Start 10/03/18 at 19:45; Stop 10/04/18 at 04:50; Status DC Dextrose (Dextrose 50%-Water Syringe) 12.5 gm PRN Q15MIN PRN IV SEE COMMENTS; Start 10/03/18 at 20:15; Status Cancel Morphine Sulfate (Morphine Sulfate) 2 mg PRN Q4HRS PRN IV MODERATE PAIN; Start 10/04/18 at 05:00; Stop 10/04/18 at 07:13; Status DC Morphine Sulfate (Morphine Sulfate) 4 mg PRN Q4HRS PRN IV SEVERE PAIN; Start 10/04/18 at 05:00; Stop 10/04/18 at 07:13; Status DC Oxycodone/ Acetaminophen (Percocet 5/325) 1 tab PRN Q6HRS PRN PO SEVERE PAIN Last administered on 10/07/18at 07:16; Start 10/04/18 at 05:00 Hydromorphone HCl (Dilaudid) 1 mg PRN Q1HR PRN IV SEVERE PAIN Last administered on 10/05/18at 11:58; Start 10/04/18 at 07:15; Stop 10/05/18 at 14:32; Status DC Vancomycin HCl (Vanco Per Pharmacy) 1 each PRN DAILY PRN MC SEE COMMENTS Last administered on 10/05/18at 20:19; Start 10/04/18 at 07:15 Piperacillin Sod/ Tazobactam Sod 3.375 gm/Sodium Chloride 50 ml @ 100 mls/hr Q6HRS IV Last administered on 10/07/18 05:06; Start 10/04/18 at 07:30 Vancomycin HCl 1.75 gm/Sodium Chloride 500 ml @ 250 mls/hr Q12H IV Last administered on 10/05/18 08:19; Start 10/04/18 at 08:00; Stop 10/05/18 at 20:08; Status DC Carvedilol (Coreg) 25 mg BIDWMEALS PO Last administered on 10/07/18 07:57; Start 10/04/18 at 08:00 Warfarin Sodium (Coumadin) 4 mg DAILY16 PO Last administered on 10/06/18 16:39; Start 10/04/18 at 16:00 Lisinopril (Prinivil) 20 mg DAILY PO Last administered on 10/07/18 07:57; Start 10/04/18 at 09:00 Spironolactone (Aldactone) 37.5 mg DAILY PO Last administered on 10/07/18 07:58; Start 10/04/18 at 09:00 Furosemide (Lasix) 20 mg DAILY PO Last administered on 10/07/18 07:57; Start 10/04/18 at 09:00 Simvastatin (Zocor) 20 mg HS PO Last administered on 10/06/18 20:33; Start 10/04/18 at 21:00 Linagliptin (Tradjenta) 5 mg DAILY PO Last administered on 10/07/18 07:57; Start 10/04/18 at 09:00 Budesonide (Pulmicort) 0.5 mg RTBID NEB Last administered on 10/07/18 08:34; Start 10/04/18 at 08:00 Albuterol Sulfate (Ventolin Neb Soln) 2.5 mg PRN Q4HRS PRN NEB SHORTNESS OF BREATH Last administered on 10/07/18 08:34; Start 10/04/18 at 07:30 Montelukast Sodium (Singulair) 10 mg QHS PO Last administered on 10/06/18 20:33; Start 10/04/18 at 21:00 Fluticasone Propionate (Flonase) 2 spray DAILY NS Last administered on 10/07/18 07:58; Start 10/04/18 at 09:00 Gabapentin (Neurontin) 300 mg TID PO Last administered on 10/07/18 07:56; Start 10/04/18 at 09:00 Insulin Glargine (Lantus) 32 units QHS SQ Last administered on 10/06/18 20:44; Start 10/04/18 at 21:00 Insulin Human Lispro (HumaLOG) 0-5 UNITS TIDWMEALS SQ Last administered on 10/06/18 16:44; Start 10/04/18 at 08:00 Dextrose (Dextrose 50%-Water Syringe) 12.5 gm PRN Q15MIN PRN IV SEE COMMENTS; Start 10/04/18 at 07:30 Metformin HCl (Glucophage) 500 mg TIDWMEALS PO Last administered on 10/04/18 17:01; Start 10/04/18 at 09:00; Stop 10/04/18 at 19:37; Status DC Polyethylene Glycol (miraLAX PACKET) 17 gm DAILY PO Last administered on 10/07/18 07:58; Start 10/04/18 at 09:00 Warfarin Sodium (Coumadin Per Physician) 1 each PRN DAILY PRN MC SEE COMMENTS Last administered on 10/04/18 15:15; Start 10/04/18 at 08:15 Vancomycin HCl (Vancomycin Trough Level) 1 each 1X ONCE MC Last administered on 10/05/18 19:30; Start 10/05/18 at 19:30; Stop 10/05/18 at 19:31; Status DC Iohexol (Omnipaque 350 Mg/ml) 95 ml 1X ONCE IV Last administered on 10/04/18 22:30; Start 10/04/18 at 19:45; Stop 10/04/18 at 19:46; Status DC Info (CONTRAST GIVEN -- Rx MONITORING) 1 each PRN DAILY PRN MC SEE COMMENTS; Start 10/04/18 at 19:45; Stop 10/06/18 at 19:44; Status DC Metformin HCl (Glucophage) 500 mg TIDWMEALS PO Last administered on 10/07/18 07:56; Start 10/07/18 at 08:00 Zolpidem Tartrate (Ambien) 5 mg PRN QHS PRN PO INSOMNIA Last administered on 10/06/18at 20:43; Start 10/04/18 at 22:00 Hydromorphone HCl (Dilaudid) 0.5 mg PRN Q2HR PRN IV SEVERE PAIN Last admin istered on 10/07/18at 09:24; Start 10/05/18 at 14:45 Vancomycin HCl 1.5 gm/Sodium Chloride 500 ml @ 250 mls/hr Q12H IV Last adm inistered on 10/07/18at 02:55; Start 10/06/18 at 03:00 Vancomycin HCl (Vancomycin Trough Level) 1 each 1X ONCE MC ; Start 10/07/18 at 14:30; Stop 10/07/18 at 14:31 Lactobacillus Rhamnosus (Culturelle) 1 cap BID PO Last administered on 10/07/18at 07:56; Start 10/06/18 at 21:00 Albuterol/ Ipratropium (Duoneb) 3 ml RTQID NEB ; Start 10/07/18 at 12:00 Active Scripts Active Reported Tramadol Hcl 50 Mg Tablet 50 Mg PO Q6HRS PRN Allergies Allergies: Coded Allergies: [place] And Derivatives (Verified Allergy, Intermediate, "scratchy throat", 10/03/18) ROS ALLERGY AND IMMUNOLOGY: YES: Seasonal Allergies Hematological and Lymphatic: YES: Blood Clots (several years ago); No: Bleeding Problems, Brusing Respiratory: No: Cough, Hemoptysis, Orthopnea, Shortness of breath Cardiovascular: No Chest Pain, No Palpitations Gastrointestinal: No Nausea, No Vomiting, No Abdominal Pain, No Diarrhea Musculoskeletal: Yes Pain In: (right leg), Yes Swelling In: (right leg) Neurological: Yes Numbness/Tingling Skin: Yes Dry Skin, Yes Rash, Yes Skin Lesion Changes Physical Exam General: Alert, Oriented X3, Cooperative, No acute distress HEENT: Atraumatic Lungs: Normal air movement Heart: Regular rate, Other (Right femoral pulse weak, cannot appreciate palpable pedal pulses on right, diminished left pedal pulses. ) Abdomen: Soft, No tenderness, Other (obese) Extremities: Other (Right leg edema, taught, shiny erythematous cellulitic skin changes from right ankle up to just below knee. Two small wounds, medial with extracted pustular drainage (cultured), lateral wound with white wound bed, no drainage. No foot wound bilaterally. Small callous to medial right great toe. No signs of ischemia, motor function intact bilaterally.) Neuro: Normal speech, Normal tone, Other (Limited sensation right foot, left foot with minimal numbness over great toe only) MUSCULOSKELETAL: Abnormal exam of right (right leg as described above, with tenderness to palpation throuhgout lower leg. ) Vitals VITALS Vital Signs Date Time Temp Pulse Resp B/P (MAP) Pulse Ox O2 Delivery O2 Flow Rate FiO2 10/07/18 09:24 Room Air 10/07/18 08:37 97 10/07/18 07:57 86 117/68 10/07/18 07:00 98.6 20 98.6 Labs Labs Laboratory Tests Test 10/05/18 10:42 10/05/18 16:37 10/05/18 19:15 10/05/18 20:57 Glucose (Fingerstick) 201 mg/dL (70-99) 173 mg/dL (70-99) 172 mg/dL (70-99) Vancomycin Level Trough 24.1 mcg/mL (10.0-20.0) Vancomycin Last Dose Date 10/05/18 Vancomycin Last Dose Time 0800 Test 10/06/18 07:45 10/06/18 10:45 10/06/18 14:20 10/06/18 16:36 Glucose (Fingerstick) 122 mg/dL (70-99) 218 mg/dL (70-99) 159 mg/dL (70-99) Prothrombin Time 27.5 SEC (11.7-14.0) Prothromb Time International Ratio 2.6 (0.8-1.1) Test 10/06/18 20:39 10/07/18 04:40 10/07/18 06:27 Glucose (Fingerstick) 195 mg/dL (70-99) 117 mg/dL (70-99) Prothrombin Time 28.0 SEC (11.7-14.0) Prothromb Time International Ratio 2.6 (0.8-1.1) Laboratory Tests Test 10/06/18 10:45 10/06/18 14:20 10/06/18 16:36 10/06/18 20:39 Glucose (Fingerstick) 218 mg/dL (70-99) 159 mg/dL (70-99) 195 mg/dL (70-99) Prothrombin Time 27.5 SEC (11.7-14.0) Prothromb Time International Ratio 2.6 (0.8-1.1) Test 10/07/18 04:40 10/07/18 06:27 Prothrombin Time 28.0 SEC (11.7-14.0) Prothromb Time International Ratio 2.6 (0.8-1.1) Glucose (Fingerstick) 117 mg/dL (70-99) Images Images Arterial doppler impression: Bulky multifocal atherosclerosis. Findings suggest hemodynamically significant aortoiliac inflow disease, at least one hemodynamically significant stenosis within the SFA, and occlusion of the anterior tibial artery. CTA impression: Exam is limited due to suboptimal contrast opacification. There is diffuse prominent plaque of the lower extremity arteries bilaterally resulting in multifocal stenoses most notable of the origin right profunda femoris artery, distal right superficial femoral artery and proximal right popliteal artery, mid to distal left superficial femoral artery, proximal left popliteal artery, and also of the proximal peroneal arteries bilaterally. There is some variable visualization of the posterior tibial arteries although only faintly seen on the left otherwise difficult to accurately characterize. There is visualization of the dorsalis pedis arteries bilaterally. There is mild to moderate narrowing of the right external iliac artery, mild narrowing of the left external iliac artery by plaque. Assessment/Plan Assessment/Plan 63 year old male with diffuse peripheral arterial disease here for cellulitis. He is being treated with IV antibiotics. He does not have nonhealing foot wounds. He has acute cellulitis. On exam he has appropriate doppler flow to both feet, but diminished on right. He has significant arterial disease and two new acute lower leg wounds associated with cellulitis. He would definitely benefit from further imaging with arteriogram to assess and possibly treat his peripheral arterial disease. He has multifocal stenosis and bilateral diffuse disease including right external iliac luminal narrowing, this would require extensive endovascular treatment if indicated and possible, may require surgery as well. Will defer to Dr. Luz, who will also see the patient today, to determine timing of further vascular imaging/intervention. We would like to hold his coumadin in anticipation for arteriogram, we can arrange once INR normalized. Thank you for consult. CHELITA HOPKINS Oct 07, 2018 10:16
[2018-10-07 10:45] VITALS: BP 106/50
[2018-10-07] MEDS: IPRATRPIUM/ALBUTEROL 0.5/2.5MG 3 ML NEBU. NEB SCH ×3 (12:17→19:48)
[2018-10-07 14:58] LABS: VANC TR 19.1 mcg/mL (10.0-20.0)
[2018-10-07 15:00] VITALS: BP 112/37
[2018-10-07] MEDS: VANCOMYCIN PER PHARMACY MC PRN (15:18)
--- NOTE | 2018-10-07 15:19 | NUR ---
Pharmacy Vancomycin Dosing Note S:Consulted to monitor and dose vancomycin started 10/04/18. O:NIALL FORDE is a 63 year old M with Cellulitis . Height: 5 feet, 9 inches Weight: 119.956231 kg [place] Body Weight: 70.70 Adjusted Body Weight: 90.38 Dosing Weight: Actual Other Antibiotics: zosyn LABS: Last BUN: 13 Last Creatinine: 1 Creatinine Clearance: 99 mL/min Last WBC: 10.7 Last Procalcitonin: Tmax (past 24 hours): afebrile Microbiology: 10/03 Blood: no growth I/O: 2450/1200 Drug Levels: Last Trough level: 19.1 on 10/07/18 at 1430 Last dose given 10/07/18 at 0255 Vancomycin Dosing: Loading Dose: x1 Dosing Weight: Actual Target Trough: 10-20 A: Based on: Therapeutic trough P: 1. Continue Vancomycin 1500 mg IV q12h 2. Follow up Trough level as needed 3. Pharmacy will continue to monitor, follow and adjust therapy as needed. IRINA HSU RPH, 10/07/18 [id number]
[2018-10-07 19:00] VITALS: BP 124/60
[2018-10-07] MEDS: MONTELUKAST SODIUM 10 MG TABLET. PO SCH (20:30)
[2018-10-07] MEDS: SIMVASTATIN 20 MG TABLET PO SCH (20:30)
[2018-10-07] MEDS: INSULIN GLARGINE 300 UNITS/3 ML INSULN.PEN. SQ SCH (20:35)
[2018-10-07 23:00] VITALS: BP 108/60
[2018-10-07] MEDS: ZOLPIDEM 5 MG TABLET. PO PRN (23:55)
[2018-10-08 02:41] VITALS: BP 113/52
[2018-10-08] MEDS: VANCOMYCIN 1.5 GM in IV NORMAL SALINE 500ML BAG 500 ML IV SCH ×2 (03:24→15:00)
[2018-10-08] MEDS: HYDROmorphone 2 MG/ML VIAL IV PRN ×5 (04:05→22:40)
[2018-10-08 04:41] LABS: PROTHROMBIN TIME PATIENT 25.8 SEC (11.7-14.0)
[2018-10-08 05:25] LABS: CREATININE 1.1 mg/dL (0.7-1.3); GFR 68.1
[2018-10-08] MEDS: PIPERACILLIN/TAZOBACTAM 3.375 GM in IV NORMAL SALINE 50ML 50 ML IV SCH ×3 (05:51→18:00)
[2018-10-08 07:00] VITALS: BP 131/61
[2018-10-08] MEDS: BUDESONIDE 0.5 MG/2 ML NEBU. NEB SCH ×2 (08:00→19:20)
[2018-10-08] MEDS: INSULIN LISPRO 300 UNITS/3 ML INSULN.PEN. SQ SCH ×3 (08:00→17:00)
[2018-10-08] MEDS: IPRATRPIUM/ALBUTEROL 0.5/2.5MG 3 ML NEBU. NEB SCH ×4 (08:00→19:20)
[2018-10-08] MEDS: metFORMIN 500 MG TABLET PO SCH ×3 (08:25→17:00)
[2018-10-08] MEDS: FLUTICASONE 50MCG/NASAL SPRAY 16GM BOTTLE. NS SCH (08:25)
[2018-10-08] MEDS: LACTOBACILLUS RHAMNOSUS GG 1 CAPSULE. PO SCH ×2 (08:25→20:49)
[2018-10-08] MEDS: SPIRONOLACTONE 25 MG TABLET PO SCH (08:27)
[2018-10-08] MEDS: LISINOPRIL 20 MG TABLET PO SCH (08:27)
[2018-10-08] MEDS: LINAGLIPTIN 5 MG TABLET PO SCH (08:28)
[2018-10-08] MEDS: GABAPENTIN 300 MG CAPSULE. PO SCH ×3 (08:28→20:49)
[2018-10-08] MEDS: CARVEDILOL 12.5 MG TABLET. PO SCH ×2 (08:29→17:00)
[2018-10-08] MEDS: POLYETHYLENE GLYCOL 3350 17 GM PACKET. PO SCH (08:37)
[2018-10-08] MEDS: FUROSEMIDE 20 MG TABLET PO SCH (08:37)
[2018-10-08] MEDS: oxyCODONE/APAP 5/325 1 TAB TABLET PO PRN ×2 (09:58→19:46)
[2018-10-08 11:00] VITALS: BP 132/66
[2018-10-08] MEDS: VANCOMYCIN PER PHARMACY MC PRN (12:32)
--- NOTE | 2018-10-08 13:08 | PDOC ---
PROGRESS NOTES Subjective Still having right leg pain presumably ischemic, off warfarin pending vascular studies, no chest pain or SOA, bowels and bladder function fine, up to BR Objective Afebrile General: comfortable in bed, right leg elevated Heart: rate normal Lungs: diminished but clear Abd: obese, soft, non tender Ext: redness of right lower leg unchanged, dressings in place Vital Signs Vital Signs Date Time Temp Pulse Resp B/P (MAP) Pulse Ox O2 Delivery O2 Flow Rate FiO2 10/08/18 12:03 95 Room Air 10/08/18 12:03 14 10/08/18 11:00 98.1 90 132/66 (88) 98.1 I & O Intake and Output0 10/08/18 07:00 Intake Total 1520 ml Output Total 825 ml Balance 695 ml Intake Oral 1520 ml Output Urine Total 825 ml Assessment and Plan (1) Cellulitis with ulcer of right leg - slow improvement in exam, continue abx and wound care. 2. PAD - likely cause of his pain. Vascular Surgery consulted. 3. DM2 - fairly well controlled, continue present medications and SS insulin. 4. HTN - controlled, continue home medications. 5. COPD - stable, continue Duoneb, budesonide. 6. anticoagulation -on hold Todd RICH MD Oct 08, 2018 13:08
[2018-10-08 19:00] VITALS: BP 114/54
--- NOTE | 2018-10-08 19:20 | NUR ---
See paper chart for administered day shift meds. [facility] was down.
[2018-10-08] MEDS: MONTELUKAST SODIUM 10 MG TABLET. PO SCH (20:49)
[2018-10-08] MEDS: SIMVASTATIN 20 MG TABLET PO SCH (20:49)
[2018-10-08] MEDS: INSULIN GLARGINE 300 UNITS/3 ML INSULN.PEN. SQ SCH (20:53)
[2018-10-08 23:10] VITALS: BP 118/61
[2018-10-09] MEDS: PIPERACILLIN/TAZOBACTAM 3.375 GM in IV NORMAL SALINE 50ML 50 ML IV SCH ×4 (00:08→17:13)
[2018-10-09] MEDS: ZOLPIDEM 5 MG TABLET. PO PRN (00:09)
[2018-10-09] MEDS: HYDROmorphone 2 MG/ML VIAL IV PRN ×8 (01:14→22:47)
[2018-10-09] MEDS: VANCOMYCIN 1.5 GM in IV NORMAL SALINE 500ML BAG 500 ML IV SCH ×2 (03:10→15:08)
[2018-10-09] MEDS: oxyCODONE/APAP 5/325 1 TAB TABLET PO PRN ×3 (03:18→18:02)
[2018-10-09 03:20] VITALS: BP 120/62
[2018-10-09 07:00] VITALS: BP_SYST 137; BP_SYST 145; BP_DIAS 59; BP_DIAS 62
[2018-10-09] MEDS: INSULIN LISPRO 300 UNITS/3 ML INSULN.PEN. SQ SCH ×3 (08:00→17:00)
--- NOTE | 2018-10-09 08:03 | PDOC ---
Provider Note Provider Note Vascular S: Patient continues to complain of right leg pain and swelling, controlled with pain medication. Patient also complains of left foot numbness. O: Alert, Oriented X3, Cooperative, No acute distress Lungs Normal air movement Heart Regular rate Right femoral pulse weak, cannot appreciate palpable pedal pulses on right, left DP 1+.Right leg edema, taught, shiny erythematous cellulitic skin changes from right ankle up to just below knee. Two small wounds, medial and lateral wound covered, dressing intact. Motor and sensation intact bilateral feet. A/P: PVD with non-healing right leg wounds, recommend AARO when INR normalizes. Continue to hold coumadin, bridging per IM. Awaiting today's results. Continue pain management with prescribed pain medications. Continue local wound care and antibiotics. Recommend consult SS for d/c planning-antibiotic and wound care therapy. LIANNA ALEGRIA APRN October 09, 2018 08:02
[2018-10-09] MEDS: IPRATRPIUM/ALBUTEROL 0.5/2.5MG 3 ML NEBU. NEB SCH ×4 (08:04→20:10)
[2018-10-09] MEDS: BUDESONIDE 0.5 MG/2 ML NEBU. NEB SCH ×2 (08:04→20:10)
[2018-10-09] MEDS: metFORMIN 500 MG TABLET PO SCH ×3 (09:07→17:59)
[2018-10-09] MEDS: GABAPENTIN 300 MG CAPSULE. PO SCH ×3 (09:07→20:08)
[2018-10-09] MEDS: FLUTICASONE 50MCG/NASAL SPRAY 16GM BOTTLE. NS SCH (09:07)
[2018-10-09] MEDS: LACTOBACILLUS RHAMNOSUS GG 1 CAPSULE. PO SCH ×2 (09:07→20:08)
[2018-10-09] MEDS: FUROSEMIDE 20 MG TABLET PO SCH (09:08)
[2018-10-09] MEDS: LINAGLIPTIN 5 MG TABLET PO SCH (09:08)
[2018-10-09] MEDS: CARVEDILOL 12.5 MG TABLET. PO SCH ×2 (09:08→17:59)
[2018-10-09] MEDS: LISINOPRIL 20 MG TABLET PO SCH (09:08)
[2018-10-09] MEDS: SPIRONOLACTONE 25 MG TABLET PO SCH (09:09)
[2018-10-09] MEDS: POLYETHYLENE GLYCOL 3350 17 GM PACKET. PO SCH (09:09)
[2018-10-09 09:13] LABS: CREATININE 1.1 mg/dL (0.7-1.3); GFR 68.1
[2018-10-09] MEDS ORDERED: PHYTONADIONE (VIT K1) IV 10 MG in IV DEXTROSE 5% 50 ML IV ONE (10:00)
[2018-10-09 10:14] LABS: PROTHROMBIN TIME PATIENT 21.1 SEC (11.7-14.0)
[2018-10-09 11:00] VITALS: BP 139/66
--- NOTE | 2018-10-09 13:29 | NUR ---
IRAJ consulted for wound care/IV abx needs upon dc. Chart reviewed and DW RN. Pt is currently on IV Zosyn and Vanc but no dc recommendations at this time. RN reported pt is not able to bear weight in one foot and might not be appropriate for PT/OT evaluation. IRAJ faxed pt's face sheet to [facility] to assess home infusion benefits. Spoke with Terence from wound care and pt only needs wound dressing changed with home health and does not need wound vac. Will continue to follow. Addendum: 10/10/18 at 0829 by SUSAN GALO IRAJ informed by RN pt will not IV abx at home and will go on PO pills after angiogram is completed.
--- NOTE | 2018-10-09 13:45 | PDOC ---
PROGRESS NOTES Subjective Right leg pain better today and he has been up more also. INR 2.4 so given Vit K dose as waiting on it to come down so AARO can be done. Wound care discussed hyperbaric O2 with him. He has an ocean cruise planned for December and wants to be ambulatory for it Objective Afebrile General: NAD, A&O, comfortable Heart: RRR Lungs: CTA Abd: soft and non tender Ext: less redness and swelling of right leg today, minimal pulse INR 2.4 Vital Signs Vital Signs Date Time Temp Pulse Resp B/P (MAP) Pulse Ox O2 Delivery O2 Flow Rate FiO2 10/09/18 13:20 Room Air 10/09/18 11:51 97 10/09/18 11:00 98.1 93 20 139/66 (90) 98.1 I & O Intake and Output 10/09/18 07:00 Intake Total 660 ml Output Total 1700 ml Balance -1040 ml Intake Oral 660 ml Output Urine Total 1700 ml Assessment and Plan 1. cellulitis of right lower leg with ulcer - slow improvement in exam, continue abx and wound care. 2. PAD - likely cause of his pain. Vascular Surgery consulted, needs AARO. 3. DM2 - fairly well controlled, continue present medications and SS insulin. 4. HTN - controlled, continue home medications. 5. COPD - stable, continue Duoneb, budesonide. 6. anticoagulation - received Vit K today, check INR in am Todd RICH MD October 09, 2018 13:45
[2018-10-09 15:00] VITALS: BP 126/53
--- NOTE | 2018-10-09 15:00 | NUR ---
Wound Care Pt seen for wound care f/u for a RLE abscess/ulcer and cellulitis. RLE redness is much improved, and periwound induration has improved. R anterior lower leg ulcer was previously scabbed, now softened and draining a scant amount. Wounds cleaned and redressed with Medihoney to lateral wound, Xeroform gauze over both, and covered with Aquacel foam dressing, recommended change every 3-4 days. No other wounds noted on full skin inspection.
[2018-10-09 19:00] VITALS: BP 122/66
[2018-10-09] MEDS: SIMVASTATIN 20 MG TABLET PO SCH (20:08)
[2018-10-09] MEDS: MONTELUKAST SODIUM 10 MG TABLET. PO SCH (20:08)
[2018-10-09] MEDS: INSULIN GLARGINE 300 UNITS/3 ML INSULN.PEN. SQ SCH (21:33)
[2018-10-09 23:00] VITALS: BP 115/60
[2018-10-10] VITALS (7 sets, daily range): BP systolic 102–142; BP diastolic 48–68
[2018-10-10] MEDS: oxyCODONE/APAP 5/325 1 TAB TABLET PO PRN ×3 (00:45→17:57)
[2018-10-10] MEDS: ZOLPIDEM 5 MG TABLET. PO PRN ×2 (00:45→23:30)
[2018-10-10] MEDS: PIPERACILLIN/TAZOBACTAM 3.375 GM in IV NORMAL SALINE 50ML 50 ML IV SCH ×5 (00:46→23:27)
[2018-10-10] MEDS: HYDROmorphone 2 MG/ML VIAL IV PRN ×7 (00:51→21:52)
[2018-10-10] MEDS: VANCOMYCIN 1.5 GM in IV NORMAL SALINE 500ML BAG 500 ML IV SCH ×2 (03:18→15:14)
[2018-10-10 06:18] LABS: BASO # 0.1 x10^3/uL (0.0-0.2); BASO % 1 % (0-3); EOS # 0.2 x10^3/uL (0.0-0.7); EOS % 3 % (0-3); HEMOGLOBIN 9.8 g/dL (13.0-17.5); LYMPH # 1.4 x10^3/uL (1.0-4.8); LYMPH % 18 % (24-48); MEAN CORPUSCULAR HEMOGLOBIN 31 pg (25-35); MEAN CORPUSCULAR HGB CONC 34 g/dL (31-37); MEAN CORPUSCULAR VOLUME 91 fL (79-100); MONO # 0.8 x10^3/uL (0.0-1.1); MONO % 9 % (0-9); NEUT # 5.6 x10^3uL (1.8-7.7); NEUT % 69 % (31-73); PLATELET COUNT 369 x10^3/uL (140-400); RED CELL DISTRIBUTION WIDTH 13.4 % (11.5-14.5)
[2018-10-10 06:35] LABS: PROTHROMBIN TIME PATIENT 15.9 SEC (11.7-14.0)
[2018-10-10] MEDS: BUDESONIDE 0.5 MG/2 ML NEBU. NEB SCH ×2 (06:59→21:03)
[2018-10-10] MEDS: IPRATRPIUM/ALBUTEROL 0.5/2.5MG 3 ML NEBU. NEB SCH ×4 (06:59→21:03)
[2018-10-10] MEDS: INSULIN LISPRO 300 UNITS/3 ML INSULN.PEN. SQ SCH ×3 (08:00→16:23)
[2018-10-10] MEDS: metFORMIN 500 MG TABLET PO SCH ×3 (08:00→16:23)
[2018-10-10] MEDS: FUROSEMIDE 20 MG TABLET PO SCH (08:15)
[2018-10-10] MEDS: CARVEDILOL 12.5 MG TABLET. PO SCH ×2 (08:15→17:57)
[2018-10-10] MEDS: LACTOBACILLUS RHAMNOSUS GG 1 CAPSULE. PO SCH ×2 (08:15→20:19)
[2018-10-10] MEDS: GABAPENTIN 300 MG CAPSULE. PO SCH ×3 (08:15→20:19)
[2018-10-10] MEDS: LISINOPRIL 20 MG TABLET PO SCH (08:16)
[2018-10-10] MEDS: LINAGLIPTIN 5 MG TABLET PO SCH (08:16)
[2018-10-10] MEDS: SPIRONOLACTONE 25 MG TABLET PO SCH (08:17)
[2018-10-10] MEDS: POLYETHYLENE GLYCOL 3350 17 GM PACKET. PO SCH (08:17)
[2018-10-10] MEDS: FLUTICASONE 50MCG/NASAL SPRAY 16GM BOTTLE. NS SCH (08:20)
[2018-10-10] MEDS ORDERED: IODIXANOL 320 MG/ML 100 ML VIAL. ONE (12:30)
[2018-10-10] MEDS ORDERED: HEPARIN for ARTERIAL LINE 1,500 ML ONE (12:30)
[2018-10-10] MEDS ORDERED: LIDOCAINE WITH 8.4% SOD BICARB 3 ML DISP.SYRIN. ONE (12:30)
[2018-10-10] MEDS ORDERED: HEPARIN for IV BOLUS 10,000 UNIT/10 ML VIAL. ONE (12:50)
[2018-10-10] MEDS ORDERED: MIDAZOLAM HCL/PF 5 MG/5 ML VIAL. ONE (12:50)
[2018-10-10] MEDS ORDERED: fentaNYL PF VIAL 250 MCG/5 ML VIAL ONE (12:50)
[2018-10-10] MEDS ORDERED: LIDOCAINE WITH 8.4% SOD BICARB 3 ML DISP.SYRIN. IJ ONE (13:15)
[2018-10-10] MEDS ORDERED: MIDAZOLAM HCL/PF 5 MG/5 ML VIAL. IV ONE (13:15)
[2018-10-10] MEDS ORDERED: IODIXANOL 320 MG/ML 100 ML VIAL. IART ONE (13:15)
[2018-10-10] MEDS ORDERED: fentaNYL PF VIAL 250 MCG/5 ML VIAL IV ONE (13:15)
[2018-10-10] MEDS ORDERED: HEPARIN for IV BOLUS 10,000 UNIT/10 ML VIAL. IV ONE (13:45)
[2018-10-10] MEDS ORDERED: CLOPIDOGREL BISULFATE 75 MG TABLET PO ONE (14:15)
[2018-10-10] MEDS ORDERED: CLOPIDOGREL BISULFATE 75 MG TABLET ONE (14:17)
--- NOTE | 2018-10-10 17:58 | PDOC ---
PROGRESS NOTES Subjective right leg stented, good pulse, now on Plavix Objective Afebrile General: A&O, NAD Heart: reg Lungs: clear Abd: obese, soft Ext: good pulse right foot, warm, leg still with erythema, wounds dressed Vital Signs Vital Signs Date Time Temp Pulse Resp B/P (MAP) Pulse Ox O2 Delivery O2 Flow Rate FiO2 10/10/18 15:44 Room Air 10/10/18 15:00 98.1 89 19 142/68 (92) 95 98.1 10/10/18 14:33 2.0 I & O Intake and Output 10/10/18 07:00 Intake Total 620 ml Output Total 1350 ml Balance -730 ml Intake Oral 620 ml Output Urine Total 1350 ml Assessment and Plan 1. cellulitis of right lower leg with ulcer - slow improvement in exam, continue IV abx and wound care, has PICC, will try to get to SNU. 2. PAD - stent placed today 3. DM2 - fairly well controlled, continue present medications and SS insulin. 4. HTN - controlled, continue home medications. 5. COPD - stable, continue Duoneb, budesonide. 6. antiplatelet - 300 mg Plavix after procedure, 75 mg po daily Todd RICH MD October 10, 2018 17:58
[2018-10-10] MEDS: MONTELUKAST SODIUM 10 MG TABLET. PO SCH (20:19)
[2018-10-10] MEDS: SIMVASTATIN 20 MG TABLET PO SCH (20:19)
[2018-10-10] MEDS: INSULIN GLARGINE 300 UNITS/3 ML INSULN.PEN. SQ SCH (20:22)
[2018-10-11] MEDS: oxyCODONE/APAP 5/325 1 TAB TABLET PO PRN (00:39)
[2018-10-11 03:00] VITALS: BP 115/57
[2018-10-11] MEDS: VANCOMYCIN 1.5 GM in IV NORMAL SALINE 500ML BAG 500 ML IV SCH ×2 (03:17→15:00)
[2018-10-11] MEDS: PIPERACILLIN/TAZOBACTAM 3.375 GM in IV NORMAL SALINE 50ML 50 ML IV SCH ×4 (05:48→23:04)
[2018-10-11 06:32] VITALS: BP 142/64
[2018-10-11] MEDS: IPRATRPIUM/ALBUTEROL 0.5/2.5MG 3 ML NEBU. NEB SCH ×4 (07:20→20:07)
[2018-10-11] MEDS: BUDESONIDE 0.5 MG/2 ML NEBU. NEB SCH ×2 (07:20→20:07)
[2018-10-11] MEDS: INSULIN LISPRO 300 UNITS/3 ML INSULN.PEN. SQ SCH ×3 (08:00→17:00)
--- NOTE | 2018-10-11 09:10 | PDOC ---
PROGRESS NOTES Subjective acute pain of right leg since 8 am, now also has redness and pain in left 1st MTP suggestive of acute gout. Pulse in right foot present but not as strong as post stent yesterday evening, pitting edema present, leg still red with dressing in place over wounds Objective Afebrile General: uncomfortable due to right leg pain and left toe pain Heart: rate controlled Lungs: clear Abd: obese, soft, bowel sounds good Ext: redness of right lower leg unchanged - dressing in place, redness and tenderness of left 1st MTP which is new Vital Signs Vital Signs Date Time Temp Pulse Resp B/P (MAP) Pulse Ox O2 Delivery O2 Flow Rate FiO2 10/11/18 07:21 92 Room Air 10/11/18 06:32 98.8 102 17 142/64 (90) 98.8 10/11/18 01:39 2.0 I & O Intake and Output 10/11/18 07:00 Intake Total 350 ml Output Total 250 ml Balance 100 ml Intake Oral 300 ml IV Total 50 ml Output Urine Total 250 ml # Voids 1 # Bowel Movements 1 Assessment and Plan 1. cellulitis of right lower leg with ulcer - slow improvement in exam, continue IV abx and wound care, has PICC, will try to get to SNU vs HH, PT/OT to assess, needs to be able to ambulate for tx of claudication, Percocet dose increased for better pain control. 2. PAD - 50% SFA with 2 vessel runoff - stent placed 10/10/18 after balloon angioplasty caused a residual dissection 3. DM2 - fairly well controlled, continue present medications and SS insulin. 4. HTN - controlled, continue home medications. 5. COPD - stable, continue Duoneb, budesonide. 6. antiplatelet - 300 mg Plavix after procedure, 75 mg po daily, cilostazil and walking program recommended in future by IR 7. left 1st MTP pain and redness suggestive of acute podagra - check xray, check uric acid, start colchicine Todd RICH MD October 11, 2018 09:10
[2018-10-11] MEDS: metFORMIN 500 MG TABLET PO SCH ×3 (09:33→17:19)
[2018-10-11] MEDS: CLOPIDOGREL BISULFATE 75 MG TABLET PO SCH (09:33)
[2018-10-11] MEDS: LACTOBACILLUS RHAMNOSUS GG 1 CAPSULE. PO SCH ×2 (09:33→20:51)
[2018-10-11] MEDS: FUROSEMIDE 20 MG TABLET PO SCH (09:33)
[2018-10-11] MEDS: LINAGLIPTIN 5 MG TABLET PO SCH (09:33)
[2018-10-11] MEDS: GABAPENTIN 300 MG CAPSULE. PO SCH ×3 (09:33→20:51)
[2018-10-11] MEDS: SPIRONOLACTONE 25 MG TABLET PO SCH (09:34)
[2018-10-11] MEDS: LISINOPRIL 20 MG TABLET PO SCH (09:34)
[2018-10-11] MEDS: COLCHICINE 0.6 MG TABLET PO SCH ×4 (09:34→20:50)
[2018-10-11] MEDS: FLUTICASONE 50MCG/NASAL SPRAY 16GM BOTTLE. NS SCH (09:35)
[2018-10-11] MEDS: CARVEDILOL 12.5 MG TABLET. PO SCH ×2 (09:35→16:33)
[2018-10-11] MEDS: HYDROmorphone 2 MG/ML VIAL IV PRN ×4 (09:46→23:04)
[2018-10-11 11:00] VITALS: BP 141/69
--- NOTE | 2018-10-11 12:09 | RAD ---
Left foot, 2 views, 10/11/2018: HISTORY: First MTP pain and redness There is minimal spurring at the first MTP joint. No fracture or dislocation is identified. No bone erosions are evident. A small inferior calcaneal spur is noted. There is mild generalized subcutaneous edema. Arterial calcifications are present. IMPRESSION: 1. Mild degenerative change at the first MTP joint. 2. No acute bony abnormality is detected. Electronically signed by: Marty Pope MD (10/11/2018 12:06 PM) [facility]
[2018-10-11] MEDS: VANCOMYCIN PER PHARMACY MC PRN (12:27)
--- NOTE | 2018-10-11 13:08 | NUR ---
SW consulted for SNU. SW requested for PT/OT evaluation to assess skilled needs. RANJAN MORENO.
[2018-10-11] MEDS: POLYETHYLENE GLYCOL 3350 17 GM PACKET. PO SCH (14:00)
[2018-10-11] MEDS: oxyCODONE/APAP 10/325 1 TAB TABLET PO PRN ×2 (14:54→20:51)
[2018-10-11 15:00] VITALS: BP 134/66
--- NOTE | 2018-10-11 15:47 | RAD ---
10/10/2018 1. Pelvic angiography. 2. Right lower extremity angiography 3. Balloon dilatation with subsequent stenting of the right superficial femoral artery Indication: Claudication Discussion: The risks and benefits of the procedure were discussed the patient. Informed consent was obtained. A timeout procedure was performed. The left groin was prepped and draped using maximum sterile barrier technique. 1% lidocaine was administered for local anesthesia. Using a combination of fluoroscopic and ultrasound guidance a left common femoral artery was accessed. Ultrasound evaluation demonstrated the artery patent. Direct ultrasound guidance is used during micropuncture access. Reference ultrasound images were saved the medical record. A 5 Persian vascular sheath was placed. The catheter was advanced into the inferior abdominal aorta. Pelvic angiography was performed. No aortoiliac stenosis is identified. There is 30% stenosis of the proximal right common femoral artery. This is not felt to be flow-limiting. The catheter was navigated into the right superficial femoral artery angiography was performed demonstrating mild irregularity of the proximal superficial femoral artery without flow-limiting stenosis. In the distal right femoral artery there is 50% stenosis over approximately 4 cm. 8 cm area of associated irregularity is seen. The popliteal artery is patent. There is two-vessel runoff to the foot via the anterior tibial artery and peroneal artery. 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 Reconstitution of the lateral plantar artery via peroneal collaterals was present. The SFA stenosis was crossed and treated with balloon angioplasty. A residual dissection, partially flow-limiting was seen following this. Therefore a 6 x 80 self-expanding stent was placed postdilated with a 6 mm balloon. This resulted in excellent morphology and flow through the lesion. The sheath was removed. A minx device was deployed to achieve hemostasis. Sterile dressings were applied. No immediate complications were identified. Total fluoroscopy time: 11.3 minutes dose area product: 216 Gycm2 The procedure was performed under conscious sedation including continuous cardiopulmonary monitoring via a dedicated sedation nurse. [id number] sedation time: 90 minutes Impression: 1. No significant aortoiliac stenosis. 2. 50% stenosis of the distal right superficial femoral artery treated with a combination of balloon angioplasty and stent placement as described 3. 2 vessel runoff to the right foot. Walking therapy with consideration of cilostazol may be helpful for further management claudication.
--- NOTE | 2018-10-11 18:03 | PDOC ---
PROGRESS NOTES Subjective Subjective Pt with RLE cellulitis and small open wounds on IV abx --> s/p left ASSISTANT DRAFTER access and right SFA stent by IR yesterday He also has significant venous stasis RLE He denies any left groin access site pain / issues He states his right foot feels a little better Objective Objective Vital Signs Date Time Temp Pulse Resp B/P (MAP) Pulse Ox O2 Delivery O2 Flow Rate FiO2 10/11/18 17:02 20 94 Room Air 10/11/18 16:33 100 134/66 10/11/18 15:00 98.5 98.5 10/11/18 01:39 2.0 Intake and Output 10/11/18 07:00 Intake Total 350 ml Output Total 250 ml Balance 100 ml Intake Oral 300 ml IV Total 50 ml Output Urine Total 250 ml # Voids 1 # Bowel Movements 1 Physical Exam Physical Exam left groin access site is soft, non-tender, no mass no hematoma no ecchymosis right leg appears improved from initial exam. 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 No complications from IR procedure -- access site looks good improved flow to the RLE Follow up in our office for venous reflux study / wound check Comment Review of Relevant I have reviewed the following items parrish (where applicable) has been applied. Labs Laboratory Tests Test 10/09/18 20:20 10/10/18 05:49 10/10/18 07:16 10/10/18 10:06 Glucose (Fingerstick) 120 mg/dL (70-99) 77 mg/dL (70-99) 81 mg/dL (70-99) White Blood Count 8.0 x10^3/uL (4.0-11.0) Red Blood Count 3.20 x10^6/uL (4.30-5.70) Hemoglobin 9.8 g/dL (13.0-17.5) Hematocrit 29.0 % (39.0-53.0) Mean Corpuscular Volume 91 fL (79-100) Mean Corpuscular Hemoglobin 31 pg (25-35) Mean Corpuscular Hemoglobin Concent 34 g/dL (31-37) Red Cell Distribution Width 13.4 % (11.5-14.5) Platelet Count 369 x10^3/uL (140-400) Neutrophils (%) (Auto) 69 % (31-73) Lymphocytes (%) (Auto) 18 % (24-48) Monocytes (%) (Auto) 9 % (0-9) Eosinophils (%) (Auto) 3 % (0-3) Basophils (%) (Auto) 1 % (0-3) Neutrophils # (Auto) 5.6 x10^3uL (1.8-7.7) Lymphocytes # (Auto) 1.4 x10^3/uL (1.0-4.8) Monocytes # (Auto) 0.8 x10^3/uL (0.0-1.1) Eosinophils # (Auto) 0.2 x10^3/uL (0.0-0.7) Basophils # (Auto) 0.1 x10^3/uL (0.0-0.2) Prothrombin Time 15.9 SEC (11.7-14.0) Prothromb Time International Ratio 1.3 (0.8-1.1) Test 10/10/18 15:15 10/10/18 20:02 10/11/18 08:33 10/11/18 10:20 Glucose (Fingerstick) 83 mg/dL (70-99) 140 mg/dL (70-99) 151 mg/dL (70-99) Uric Acid 3.9 mg/dL (3.5-7.2) Test 10/11/18 11:34 Glucose (Fingerstick) 216 mg/dL (70-99) Laboratory Tests Test 10/10/18 20:02 10/11/18 08:33 10/11/18 10:20 10/11/18 11:34 Glucose (Fingerstick) 140 mg/dL (70-99) 151 mg/dL (70-99) 216 mg/dL (70-99) Uric Acid 3.9 mg/dL (3.5-7.2) Microbiology 10/03/18 Blood Culture - Final, Complete NO GROWTH AFTER 5 DAYS 10/07/18 Anaerobic/Aerobic Culture - Final, Complete 10/07/18 Anaerobic Culture Result 1 (RADHA) - Final, Complete 10/07/18 Aerobic Culture - Final, Complete 10/07/18 Aerobic Culture Result 1 (RADHA) - Final, Complete 10/07/18 Antimicrobic Susceptibility - Final, Complete 10/07/18 Gram Stain - Final, Complete 10/07/18 Gram Stain Result 1 (RADHA) - Final, Complete 10/07/18 Gram Stain Result 2 (RADHA) - Final, Complete Medications Current Medications Vancomycin HCl 250 ml @ 250 mls/hr 1X ONCE IV Last administered on 10/03/18at 20:21; Start 10/03/18 at 18:45; Stop 10/03/18 at 19:44; Status DC Piperacillin Sod/ Tazobactam Sod 3.375 gm/Sodium Chloride 50 ml @ 100 mls/hr 1X ONCE IV Last administered on 10/03/18at 19:29; Start 10/03/18 at 18:45; Stop 10/03/18 at 19:14; Status DC Fentanyl Citrate (Fentanyl 2ml Vial) 50 mcg 1X ONCE IV Last administered on 10/03/18at 19:02; Start 10/03/18 at 18:45; Stop 10/03/18 at 18:46; Status DC Morphine Sulfate (Morphine Sulfate) 4 mg 1X ONCE IV Last administered on 10/03/18at 19:48; Start 10/03/18 at 19:45; Stop 10/03/18 at 19:46; Status DC Ondansetron HCl (Zofran) 4 mg PRN Q8HRS PRN IV NAUSEA/VOMITING; Start 10/03/18 at 19:45; Stop 10/04/18 at 19:44; Status DC Morphine Sulfate (Morphine Sulfate) 4 mg PRN Q2HR PRN IV PAIN Last administered on 10/04/18at 04:36; Start 10/03/18 at 19:45; Stop 10/04/18 at 04:50; Status DC Dextrose (Dextrose 50%-Water Syringe) 12.5 gm PRN Q15MIN PRN IV SEE COMMENTS; Start 10/03/18 at 20:15; Status Cancel Morphine Sulfate (Morphine Sulfate) 2 mg PRN Q4HRS PRN IV MODERATE PAIN; Start 10/04/18 at 05:00; Stop 10/04/18 at 07:13; Status DC Morphine Sulfate (Morphine Sulfate) 4 mg PRN Q4HRS PRN IV SEVERE PAIN; Start at 05:00; Stop 10/04/18 at 07:13; Status DC Oxycodone/ Acetaminophen (Percocet 5/325) 1 tab PRN Q6HRS PRN PO SEVERE PAIN Last administered on 10/11/18 00:39; Start 10/04/18 at 05:00; Stop 10/11/18 at 14:28; Status DC Hydromorphone HCl (Dilaudid) 1 mg PRN Q1HR PRN IV SEVERE PAIN Last administered on 10/05/18 11:58; Start 10/04/18 at 07:15; Stop 10/05/18 at 14:32; Status DC Vancomycin HCl (Vanco Per Pharmacy) 1 each PRN DAILY PRN MC SEE COMMENTS Last administered on 10/11/18 12:27; Start 10/04/18 at 07:15 Piperacillin Sod/ Tazobactam Sod 3.375 gm/Sodium Chloride 50 ml @ 100 mls/hr Q6HRS IV Last administered on 10/11/18 17:20; Start 10/04/18 at 07:30 Vancomycin HCl 1.75 gm/Sodium Chloride 500 ml @ 250 mls/hr Q12H IV Last administered on 10/05/18 08:19; Start 10/04/18 at 08:00; Stop 10/05/18 at 20:08; Status DC Carvedilol (Coreg) 25 mg BIDWMEALS PO Last administered on 10/11/18 16:33; Start 10/04/18 at 08:00 Warfarin Sodium (Coumadin) 4 mg DAILY16 PO Last administered on 10/06/18 16:39; Start 10/04/18 at 16:00; Stop 10/07/18 at 11:21; Status DC Lisinopril (Prinivil) 20 mg DAILY PO Last administered on 10/11/18 09:34; Start 10/04/18 at 09:00 Spironolactone (Aldactone) 37.5 mg DAILY PO Last administered on 10/11/18 09:34; Start 10/04/18 at 09:00 Furosemide (Lasix) 20 mg DAILY PO Last administered on 10/11/18 09:33; Start 10/04/18 at 09:00 Simvastatin (Zocor) 20 mg HS PO Last administered on 10/10/18 20:19; Start 10/04/18 at 21:00 Linagliptin (Tradjenta) 5 mg DAILY PO Last administered on 10/11/18 09:33; Start 10/04/18 at 09:00 Budesonide (Pulmicort) 0.5 mg RTBID NEB Last administered on 10/11/18 07:20; Start 10/04/18 at 08:00 Albuterol Sulfate (Ventolin Neb Soln) 2.5 mg PRN Q4HRS PRN NEB SHORTNESS OF BREATH Last administered on 10/07/18 08:34; Start 10/04/18 at 07:30 Montelukast Sodium (Singulair) 10 mg QHS PO Last administered on 10/10/18 20:19; Start 10/04/18 at 21:00 Fluticasone Propionate (Flonase) 2 spray DAILY NS Last administered on 10/11/18 09:35; Start 10/04/18 at 09:00 Gabapentin (Neurontin) 300 mg TID PO Last administered on 10/11/18 13:57; Start 10/04/18 at 09:00 Insulin Glargine (Lantus) 32 units QHS SQ Last administered on 10/10/18 20:22; Start 10/04/18 at 21:00 Insulin Human Lispro (HumaLOG) 0-5 UNITS TIDWMEALS SQ Last administered on 10/06/18 16:44; Start 10/04/18 at 08:00 Dextrose (Dextrose 50%-Water Syringe) 12.5 gm PRN Q15MIN PRN IV SEE COMMENTS; Start 10/04/18 at 07:30 Metformin HCl (Glucophage) 500 mg TIDWMEALS PO Last administered on 10/04/18 17:01; Start 10/04/18 at 09:00; Stop 10/04/18 at 19:37; Status DC Polyethylene Glycol (miraLAX PACKET) 17 gm DAILY PO Last administered on 14:00; Start 10/04/18 at 09:00 Warfarin Sodium (Coumadin Per Physician) 1 each PRN DAILY PRN MC SEE COMMENTS Last administered on 10/04/18 15:15; Start 10/04/18 at 08:15; Stop 10/07/18 at 11:21; Status DC Vancomycin HCl (Vancomycin Trough Level) 1 each 1X ONCE MC Last administered on 10/05/18 19:30; Start 10/05/18 at 19:30; Stop 10/05/18 at 19:31; Status DC Iohexol (Omnipaque 350 Mg/ml) 95 ml 1X ONCE IV Last administered on 10/04/18 22:30; Start 10/04/18 at 19:45; Stop 10/04/18 at 19:46; Status DC Info (CONTRAST GIVEN -- Rx MONITORING) 1 each PRN DAILY PRN MC SEE COMMENTS; Start 10/04/18 at 19:45; Stop 10/06/18 at 19:44; Status DC Metformin HCl (Glucophage) 500 mg TIDWMEALS PO Last administered on 10/11/18 17:19; Start 10/07/18 at 08:00 Zolpidem Tartrate (Ambien) 5 mg PRN QHS PRN PO INSOMNIA Last administered on 10/10/18 23:30; Start 10/04/18 at 22:00 Hydromorphone HCl (Dilaudid) 0.5 mg PRN Q2HR PRN IV SEVERE PAIN Last administered on 10/11/18 16:32; Start 10/05/18 at 14:45 Vancomycin HCl 1.5 gm/Sodium Chloride 500 ml @ 250 mls/hr Q12H IV Last administered on 10/11/18 15:00; Start 10/06/18 at 03:00 Vancomycin HCl (Vancomycin Trough Level) 1 each 1X ONCE MC Last administered on 10/07/18 14:30; Start 10/07/18 at 14:30; Stop 10/07/18 at 14:31; Status DC Lactobacillus Rhamnosus (Culturelle) 1 cap BID PO Last administered on 10/11/18 09:33; Start 10/06/18 at 21:00 Albuterol/ Ipratropium (Duoneb) 3 ml RTQID NEB Last administered on 10/11/18 15:27; Start 10/07/18 at 12:00 Phytonadione 10 mg/Dextrose 51 ml @ 102 mls/hr 1X ONCE IV Last administered on 10/09/18at 10:40; Start 10/09/18 at 10:00; Stop 10/09/18 at 10:29; Status DC Iodixanol (Visipaque 320) 100 ml STK-MED ONCE .ROUTE ; Start 10/10/18 at 12:30; Stop 10/10/18 at 12:31; Status DC Lidocaine/Sodium Bicarbonate (Buffered Lidocaine 1%) 3 ml STK-MED ONCE .ROUTE ; Start 10/10/18 at 12:30; Stop 10/10/18 at 12:31; Status DC Heparin Sodium/ Sodium Chloride 1,500 ml @ As Directed STK-MED ONCE .ROUTE ; Start 10/10/18 at 12:30; Stop 10/10/18 at 12:31; Status DC Midazolam HCl (Versed) 5 mg STK-MED ONCE .ROUTE ; Start 10/10/18 at 12:50; Stop 10/10/18 at 12:51; Status DC Fentanyl Citrate (Fentanyl 5ml Vial) 250 mcg STK-MED ONCE .ROUTE ; Start 10/10/18 at 12:50; Stop 10/10/18 at 12:51; Status DC Heparin Sodium (Porcine) (Heparin Sodium) 10,000 unit STK-MED ONCE .ROUTE ; Start 10/10/18 at 12:50; Stop 10/10/18 at 12:51; Status DC Heparin Sodium/ Sodium Chloride (HEPARIN for ARTERIAL LINE FLUSH) 1,000 unit 1X ONCE IART Last administered on 10/10/18at 14:26; Start 10/10/18 at 13:15; Stop 10/10/18 at 13:22; Status DC Lidocaine/Sodium Bicarbonate (Buffered Lidocaine 1%) 3 ml 1X ONCE IJ Last administered on 10/10/18at 13:15; Start 10/10/18 at 13:15; Stop 10/10/18 at 13:22; Status DC Midazolam HCl (Versed) 5 mg 1X ONCE IV Last administered on 10/10/18at 14:26; Start 10/10/18 at 13:15; Stop 10/10/18 at 13:22; Status DC Fentanyl Citrate (Fentanyl 5ml Vial) 250 mcg 1X ONCE IV Last administered on 10/10/18at 14:27; Start 10/10/18 at 13:15; Stop 10/10/18 at 13:22; Status DC Iodixanol (Visipaque 320) 100 ml 1X ONCE IART Last administered on 10/10/18at 13:15; Start 10/10/18 at 13:15; Stop 10/10/18 at 13:22; Status DC Heparin Sodium/ Sodium Chloride (HEPARIN for ARTERIAL LINE FLUSH) 1,000 unit 1X ONCE IART Last administered on 10/10/18at 14:26; Start 10/10/18 at 13:15; Stop 10/10/18 at 13:22; Status DC Heparin Sodium (Porcine) (Heparin Sodium) 5,000 unit 1X ONCE IV Last administered on 10/10/18at 14:27; Start 10/10/18 at 13:45; Stop 10/10/18 at 13:47; Status DC Clopidogrel Bisulfate (Plavix) 300 mg 1X ONCE PO Last administered on 10/10/18at 14:30; Start 10/10/18 at 14:15; Stop 10/10/18 at 14:18; Status DC Clopidogrel Bisulfate (Plavix) 75 mg DAILYWBKFT PO Last administered on 10/11/18at 09:33; Start 10/11/18 at 08:00 Clopidogrel Bisulfate (Plavix) 75 mg STK-MED ONCE .ROUTE ; Start 10/10/18 at 14:17; Stop 10/10/18 at 14:18; Status DC Colchicine (Colcrys) 0.6 mg QID PO Last administered on 10/11/18at 17:19; Start 10/11/18 at 09:30; Stop 10/12/18 at 09:29 Oxycodone/ Acetaminophen (Percocet 10/325) 1 tab PRN Q4HRS PRN PO PAIN Last administered on 10/11/18at 14:54; Start 10/11/18 at 14:30 Active Scripts Active Reported Tramadol Hcl 50 Mg Tablet 50 Mg PO Q6HRS PRN Vitals/I & O Vital Sign - Last 24 Hours 10/10/18 10/10/18 10/10/18 10/10/18 19:00 19:28 19:32 21:04 Temp 98.3 98.3 Pulse 85 Resp 19 B/P (MAP) 118/58 (78) Pulse Ox 95 95 96 O2 Delivery Room Air Room Air Room Air Room Air O2 Flow Rate 2.0 2.0 10/10/18 10/10/18 10/10/18 10/11/18 21:52 22:22 23:00 00:39 Temp 99.2 99.2 Pulse 109 Resp 18 B/P (MAP) 107/55 (72) Pulse Ox 96 95 95 O2 Delivery Room Air Room Air Room Air O2 Flow Rate 2.0 2.0 2.0 10/11/18 10/11/18 10/11/18 10/11/18 01:39 03:00 06:32 07:20 Temp 98.9 98.8 98.9 98.8 Pulse 92 102 Resp 18 17 B/P (MAP) 115/57 (76) 142/64 (90) Pulse Ox 95 95 92 92 O2 Delivery Room Air Room Air Room Air Room Air O2 Flow Rate 2.0 10/11/18 10/11/18 10/11/18 10/11/18 07:21 09:34 09:35 09:46 Pulse 102 102 Resp 20 B/P (MAP) 142/64 142/64 Pulse Ox 92 92 O2 Delivery Room Air Room Air 10/11/18 10/11/18 10/11/18 10/11/18 11:00 11:20 13:34 14:54 Temp 98.7 98.7 Pulse 96 Resp 18 20 18 B/P (MAP) 141/69 (93) Pulse Ox 92 95 95 O2 Delivery Room Air Room Air Room Air Room Air 10/11/18 10/11/18 10/11/18 10/11/18 15:00 15:28 15:54 16:32 Temp 98.5 98.5 Pulse 100 Resp 18 20 20 B/P (MAP) 134/66 (88) Pulse Ox 94 94 94 O2 Delivery Room Air Room Air Room Air Room Air 10/11/18 10/11/18 16:33 17:02 Pulse 100 Resp 20 B/P (MAP) 134/66 Pulse Ox 94 O2 Delivery Room Air Intake and Output 10/10/18 10/10/18 10/11/18 15:00 23:00 07:00 Intake Total 350 ml Output Total 250 ml Balance -250 ml 350 ml ASHU VILLALOBOS MD October 11, 2018 18:02
[2018-10-11 19:00] VITALS: BP 119/56
[2018-10-11] MEDS: ZOLPIDEM 5 MG TABLET. PO PRN (20:51)
[2018-10-11] MEDS: SIMVASTATIN 20 MG TABLET PO SCH (20:51)
[2018-10-11] MEDS: MONTELUKAST SODIUM 10 MG TABLET. PO SCH (20:51)
[2018-10-11] MEDS: INSULIN GLARGINE 300 UNITS/3 ML INSULN.PEN. SQ SCH (20:57)
[2018-10-11 22:38] VITALS: BP 123/60
[2018-10-12] MEDS: VANCOMYCIN 1.5 GM in IV NORMAL SALINE 500ML BAG 500 ML IV SCH (02:04)
[2018-10-12] MEDS: oxyCODONE/APAP 10/325 1 TAB TABLET PO PRN ×5 (02:04→20:27)
[2018-10-12 02:58] VITALS: BP 111/51
[2018-10-12] MEDS: PIPERACILLIN/TAZOBACTAM 3.375 GM in IV NORMAL SALINE 50ML 50 ML IV SCH ×4 (05:22→23:15)
[2018-10-12] MEDS: HYDROmorphone 2 MG/ML VIAL IV PRN ×5 (05:26→23:16)
[2018-10-12 07:00] VITALS: BP 126/57
[2018-10-12] MEDS: BUDESONIDE 0.5 MG/2 ML NEBU. NEB SCH ×2 (07:27→19:46)
[2018-10-12] MEDS: IPRATRPIUM/ALBUTEROL 0.5/2.5MG 3 ML NEBU. NEB SCH ×4 (07:27→19:46)
[2018-10-12] MEDS: INSULIN LISPRO 300 UNITS/3 ML INSULN.PEN. SQ SCH ×3 (07:53→17:22)
--- NOTE | 2018-10-12 07:58 | PDOC ---
PROGRESS NOTES Subjective Subjective Patient feeling better still with mobility deficet and bilateral feet and leg pain. pain has changed in character to more joint pain. Uric acid neg for gout. Objective Objective Vital Signs Date Time Temp Pulse Resp B/P (MAP) Pulse Ox O2 Delivery O2 Flow Rate FiO2 10/12/18 07:30 95 Room Air 10/12/18 06:34 18 10/12/18 03:04 2.0 10/12/18 02:58 98.5 91 111/51 (71) 98.5 Intake and Output 10/12/18 07:00 Intake Total 1700 ml Output Total 2075 ml Balance -375 ml Intake Oral 1600 ml IV Total 100 ml Output Urine Total 2075 ml # Voids 1 # Bowel Movements 1 Physical Exam Abdomen: Normal bowel sounds Heart: Regular rate Extremities: Other (wound left lower ext dressed. 2 + pulses noted today venous stasis edema noted) General: Alert Lungs: Clear to auscultation Assessment Assessment Problems Medical Problems: (1) Cellulitis, leg Status: Acute 1. cellulitis of right lower leg with ulcer 2. PAD 3. DM2 4. HTN 5. COPD 6 Morbid obesity 7. OA feet 8. Venous stasis Plan Plan of Care Continue IV antibx To SNU Sunday Continue dressing changes continue PT/OT Add PO steroid for OA X5days D/C colchicine Comment Review of Relevant I have reviewed the following items parrish (where applicable) has been applied. Labs Laboratory Tests Test 10/10/18 10:06 10/10/18 15:15 10/10/18 20:02 10/11/18 08:33 Glucose (Fingerstick) 81 mg/dL (70-99) 83 mg/dL (70-99) 140 mg/dL (70-99) 151 mg/dL (70-99) Test 10/11/18 10:20 10/11/18 11:34 10/11/18 20:37 Uric Acid 3.9 mg/dL (3.5-7.2) Glucose (Fingerstick) 216 mg/dL (70-99) 137 mg/dL (70-99) Laboratory Tests Test 10/11/18 08:33 10/11/18 10:20 10/11/18 11:34 10/11/18 20:37 Glucose (Fingerstick) 151 mg/dL (70-99) 216 mg/dL (70-99) 137 mg/dL (70-99) Uric Acid 3.9 mg/dL (3.5-7.2) Test 10/12/18 07:21 Glucose (Fingerstick) 87 mg/dL (70-99) Microbiology 10/03/18 Blood Culture - Final, Complete NO GROWTH AFTER 5 DAYS 10/07/18 Anaerobic/Aerobic Culture - Final, Complete 10/07/18 Anaerobic Culture Result 1 (RADHA) - Final, Complete 10/07/18 Aerobic Culture - Final, Complete 10/07/18 Aerobic Culture Result 1 (RADHA) - Final, Complete 10/07/18 Antimicrobic Susceptibility - Final, Complete 10/07/18 Gram Stain - Final, Complete 10/07/18 Gram Stain Result 1 (RADHA) - Final, Complete 10/07/18 Gram Stain Result 2 (RADHA) - Final, Complete Medications Current Medications Vancomycin HCl 250 ml @ 250 mls/hr 1X ONCE IV Last administered on 10/03/18at 20:21; Start 10/03/18 at 18:45; Stop 10/03/18 at 19:44; Status DC Piperacillin Sod/ Tazobactam Sod 3.375 gm/Sodium Chloride 50 ml @ 100 mls/hr 1X ONCE IV Last administered on 10/03/18at 19:29; Start 10/03/18 at 18:45; Stop 10/03/18 at 19:14; Status DC Fentanyl Citrate (Fentanyl 2ml Vial) 50 mcg 1X ONCE IV Last administered on 10/03/18at 19:02; Start 10/03/18 at 18:45; Stop 10/03/18 at 18:46; Status DC Morphine Sulfate (Morphine Sulfate) 4 mg 1X ONCE IV Last administered on 10/03/18at 19:48; Start 10/03/18 at 19:45; Stop 10/03/18 at 19:46; Status DC Ondansetron HCl (Zofran) 4 mg PRN Q8HRS PRN IV NAUSEA/VOMITING; Start 10/03/18 at 19:45; Stop 10/04/18 at 19:44; Status DC Morphine Sulfate (Morphine Sulfate) 4 mg PRN Q2HR PRN IV PAIN Last administered on 10/04/18at 04:36; Start 10/03/18 at 19:45; Stop 10/04/18 at 04:50; Status DC Dextrose (Dextrose 50%-Water Syringe) 12.5 gm PRN Q15MIN PRN IV SEE COMMENTS; Start 10/03/18 at 20:15; Status Cancel Morphine Sulfate (Morphine Sulfate) 2 mg PRN Q4HRS PRN IV MODERATE PAIN; Start 10/04/18 at 05:00; Stop 10/04/18 at 07:13; Status DC Morphine Sulfate (Morphine Sulfate) 4 mg PRN Q4HRS PRN IV SEVERE PAIN; Start 10/04/18 at 05:00; Stop 10/04/18 at 07:13; Status DC Oxycodone/ Acetaminophen (Percocet 5/325) 1 tab PRN Q6HRS PRN PO SEVERE PAIN Last administered on 10/11/18 00:39; Start 10/04/18 at 05:00; Stop 10/11/18 at 14:28; Status DC Hydromorphone HCl (Dilaudid) 1 mg PRN Q1HR PRN IV SEVERE PAIN Last administered on 10/05/18at 11:58; Start 10/04/18 at 07:15; Stop 10/05/18 at 14:32; Status DC Vancomycin HCl (Vanco Per Pharmacy) 1 each PRN DAILY PRN MC SEE COMMENTS Last administered on 10/11/18 12:27; Start 10/04/18 at 07:15 Piperacillin Sod/ Tazobactam Sod 3.375 gm/Sodium Chloride 50 ml @ 100 mls/hr Q6HRS IV Last administered on 10/12/18 05:22; Start 10/04/18 at 07:30 Vancomycin HCl 1.75 gm/Sodium Chloride 500 ml @ 250 mls/hr Q12H IV Last administered on 10/05/18at 08:19; Start 10/04/18 at 08:00; Stop 10/05/18 at 20:08; Status DC Carvedilol (Coreg) 25 mg BIDWMEALS PO Last administered on 10/11/18 16:33; Start 10/04/18 at 08:00 Warfarin Sodium (Coumadin) 4 mg DAILY16 PO Last administered on 10/06/18 16:39; Start 10/04/18 at 16:00; Stop 10/07/18 at 11:21; Status DC Lisinopril (Prinivil) 20 mg DAILY PO Last administered on 10/11/18 09:34; Start 10/04/18 at 09:00 Spironolactone (Aldactone) 37.5 mg DAILY PO Last administered on 10/11/18 09:34; Start 10/04/18 at 09:00 Furosemide (Lasix) 20 mg DAILY PO Last administered on 10/11/18 09:33; Start 10/04/18 at 09:00 Simvastatin (Zocor) 20 mg HS PO Last administered on 10/11/18 20:51; Start 10/04/18 at 21:00 Linagliptin (Tradjenta) 5 mg DAILY PO Last administered on 10/11/18 09:33; Start 10/04/18 at 09:00 Budesonide (Pulmicort) 0.5 mg RTBID NEB Last administered on 10/12/18 07:27; Start 10/04/18 at 08:00 Albuterol Sulfate (Ventolin Neb Soln) 2.5 mg PRN Q4HRS PRN NEB SHORTNESS OF JG ATH Last administered on 10/07/18 08:34; Start 10/04/18 at 07:30 Montelukast Sodium (Singulair) 10 mg QHS PO Last administered on 10/11/18 20:51; Start 10/04/18 at 21:00 Fluticasone Propionate (Flonase) 2 spray DAILY NS Last administered on 10/11/18 09:35; Start 10/04/18 at 09:00 Gabapentin (Neurontin) 300 mg TID PO Last administered on 10/11/18 20:51; Start 10/04/18 at 09:00 Insulin Glargine (Lantus) 32 units QHS SQ Last administered on 10/11/18 20:57; Start 10/04/18 at 21:00 Insulin Human Lispro (HumaLOG) 0-5 UNITS TIDWMEALS SQ Last administered on 10/06/18 16:44; Start 10/04/18 at 08:00 Dextrose (Dextrose 50%-Water Syringe) 12.5 gm PRN Q15MIN PRN IV SEE COMMENTS; Start 10/04/18 at 07:30 Metformin HCl (Glucophage) 500 mg TIDWMEALS PO Last administered on 10/04/18 17:01; Start 10/04/18 at 09:00; Stop 10/04/18 at 19:37; Status DC Polyethylene Glycol (miraLAX PACKET) 17 gm DAILY PO Last administered on 10/11/18 14:00; Start 10/04/18 at 09:00 Warfarin Sodium (Coumadin Per Physician) 1 each PRN DAILY PRN MC SEE COMMENTS Last administered on 10/04/18 15:15; Start 10/04/18 at 08:15; Stop 10/07/18 at 11:21; Status DC Vancomycin HCl (Vancomycin Trough Level) 1 each 1X ONCE MC Last administered on 10/05/18 19:30; Start 10/05/18 at 19:30; Stop 10/05/18 at 19:31; Status DC Iohexol (Omnipaque 350 Mg/ml) 95 ml 1X ONCE IV Last administered on 10/04/18 22:30; Start 10/04/18 at 19:45; Stop 10/04/18 at 19:46; Status DC Info (CONTRAST GIVEN -- Rx MONITORING) 1 each PRN DAILY PRN MC SEE COMMENTS; Start 10/04/18 at 19:45; Stop 10/06/18 at 19:44; Status DC Metformin HCl (Glucophage) 500 mg TIDWMEALS PO Last administered on 10/11/18 17:19; Start 10/07/18 at 08:00 Zolpidem Tartrate (Ambien) 5 mg PRN QHS PRN PO INSOMNIA Last administered on 10/11/18 20:51; Start 10/04/18 at 22:00 Hydromorphone HCl (Dilaudid) 0.5 mg PRN Q2HR PRN IV SEVERE PAIN Last administered on 10/12/18 05:26; Start 10/05/18 at 14:45 Vancomycin HCl 1.5 gm/Sodium Chloride 500 ml @ 250 mls/hr Q12H IV Last administered on 10/12/18 02:04; Start 10/06/18 at 03:00 Vancomycin HCl (Vancomycin Trough Level) 1 each 1X ONCE MC Last administered on 10/07/18 14:30; Start 10/07/18 at 14:30; Stop 10/07/18 at 14:31; Status DC Lactobacillus Rhamnosus (Culturelle) 1 cap BID PO Last administered on 5/3/19at 20:51; Start 10/06/18 at 21:00 Albuterol/ Ipratropium (Duoneb) 3 ml RTQID NEB Last administered on 10/12/18at 07:27; Start 10/07/18 at 12:00 Phytonadione 10 mg/Dextrose 51 ml @ 102 mls/hr 1X ONCE IV Last administered on 10/09/18at 10:40; Start 10/09/18 at 10:00; Stop 10/09/18 at 10:29; Status DC Iodixanol (Visipaque 320) 100 ml STK-MED ONCE .ROUTE ; Start 10/10/18 at 12:30; Stop 10/10/18 at 12:31; Status DC Lidocaine/Sodium Bicarbonate (Buffered Lidocaine 1%) 3 ml STK-MED ONCE .ROUTE ; Start 10/10/18 at 12:30; Stop 10/10/18 at 12:31; Status DC Heparin Sodium/ Sodium Chloride 1,500 ml @ As Directed STK-MED ONCE .ROUTE ; Start 10/10/18 at 12:30; Stop 10/10/18 at 12:31; Status DC Midazolam HCl (Versed) 5 mg STK-MED ONCE .ROUTE ; Start 10/10/18 at 12:50; Stop 10/10/18 at 12:51; Status DC Fentanyl Citrate (Fentanyl 5ml Vial) 250 mcg STK-MED ONCE .ROUTE ; Start 10/10/18 at 12:50; Stop 10/10/18 at 12:51; Status DC Heparin Sodium (Porcine) (Heparin Sodium) 10,000 unit STK-MED ONCE .ROUTE ; Start 10/10/18 at 12:50; Stop 10/10/18 at 12:51; Status DC Heparin Sodium/ Sodium Chloride (HEPARIN for ARTERIAL LINE FLUSH) 1,000 unit 1X ONCE IART Last administered on 10/10/18at 14:26; Start 10/10/18 at 13:15; Stop 10/10/18 at 13:22; Status DC Lidocaine/Sodium Bicarbonate (Buffered Lidocaine 1%) 3 ml 1X ONCE IJ Last administered on 10/10/18at 13:15; Start 10/10/18 at 13:15; Stop 10/10/18 at 13:22; Status DC Midazolam HCl (Versed) 5 mg 1X ONCE IV Last administered on 10/10/18at 14:26; Start 10/10/18 at 13:15; Stop 10/10/18 at 13:22; Status DC Fentanyl Citrate (Fentanyl 5ml Vial) 250 mcg 1X ONCE IV Last administered on 10/10/18 14:27; Start 10/10/18 at 13:15; Stop 10/10/18 at 13:22; Status DC Iodixanol (Visipaque 320) 100 ml 1X ONCE IART Last administered on 10/10/18 13:15; Start 10/10/18 at 13:15; Stop 10/10/18 at 13:22; Status DC Heparin Sodium/ Sodium Chloride (HEPARIN for ARTERIAL LINE FLUSH) 1,000 unit 1X ONCE IART Last administered on 10/10/18 14:26; Start 10/10/18 at 13:15; Stop 10/10/18 at 13:22; Status DC Heparin Sodium (Porcine) (Heparin Sodium) 5,000 unit 1X ONCE IV Last administered on 10/10/18 14:27; Start 10/10/18 at 13:45; Stop 10/10/18 at 13:47; Status DC Clopidogrel Bisulfate (Plavix) 300 mg 1X ONCE PO Last administered on 10/10/18 14:30; Start 10/10/18 at 14:15; Stop 10/10/18 at 14:18; Status DC Clopidogrel Bisulfate (Plavix) 75 mg DAILYWBKFT PO Last administered on 10/11/18at 09:33; Start 10/11/18 at 08:00 Clopidogrel Bisulfate (Plavix) 75 mg STK-MED ONCE .ROUTE ; Start 10/10/18 at 14:17; Stop 10/10/18 at 14:18; Status DC Colchicine (Colcrys) 0.6 mg QID PO Last administered on 10/11/18at 20:50; Start 10/11/18 at 09:30; Stop 10/12/18 at 07:45; Status DC Oxycodone/ Acetaminophen (Percocet 10/325) 1 tab PRN Q4HRS PRN PO PAIN Last administered on 10/12/18at 06:34; Start 10/11/18 at 14:30 Active Scripts Active Reported Tramadol Hcl 50 Mg Tablet 50 Mg PO Q6HRS PRN Vitals/I & O Vital Sign - Last 24 Hours 10/11/18 10/11/18 10/11/18 10/11/18 08:00 09:34 09:35 09:46 Pulse 102 102 Resp 20 B/P (MAP) 142/64 142/64 Pulse Ox 92 O2 Delivery Room Air Room Air 10/11/18 10/11/18 10/11/18 10/11/18 11:00 11:20 13:34 14:54 Temp 98.7 98.7 Pulse 96 Resp 18 20 18 B/P (MAP) 141/69 (93) Pulse Ox 92 95 95 O2 Delivery Room Air Room Air Room Air Room Air 10/11/18 10/11/18 10/11/18 10/11/18 15:00 15:28 16:32 16:33 Temp 98.5 98.5 Pulse 100 100 Resp 18 20 B/P (MAP) 134/66 (88) 134/66 Pulse Ox 94 94 O2 Delivery Room Air Room Air Room Air 10/11/18 10/11/18 10/11/18 10/11/18 19:00 20:00 20:05 20:51 Temp 98.6 98.6 Pulse 89 Resp 18 18 B/P (MAP) 119/56 (77) Pulse Ox 96 94 O2 Delivery Room Air Room Air Room Air Room Air 10/11/18 10/11/18 10/11/18 10/12/18 22:38 23:04 23:34 02:04 Temp 98.6 98.6 Pulse 92 Resp 18 18 18 B/P (MAP) 123/60 (81) Pulse Ox 95 95 95 O2 Delivery Room Air Room Air Room Air O2 Flow Rate 2.0 2.0 2.0 10/12/18 10/12/18 10/12/18 10/12/18 02:58 03:04 05:26 05:56 Temp 98.5 98.5 Pulse 91 Resp 18 18 18 18 B/P (MAP) 111/51 (71) Pulse Ox 92 92 92 92 O2 Delivery Room Air Room Air Room Air Room Air O2 Flow Rate 2.0 10/12/18 10/12/18 06:34 07:30 Resp 18 Pulse Ox 92 95 O2 Delivery Room Air Room Air Intake and Output 0 10/11/18 10/11/18 10/12/18 15:00 23:00 07:00 Intake Total 950 ml 300 ml 450 ml Output Total 850 ml 1225 ml Balance 100 ml 300 ml -775 ml ALANNA LINARES MD October 12, 2018 07:58
[2018-10-12] MEDS: CARVEDILOL 12.5 MG TABLET. PO SCH ×2 (08:00→17:11)
[2018-10-12] MEDS: POLYETHYLENE GLYCOL 3350 17 GM PACKET. PO SCH (08:30)
[2018-10-12] MEDS: LACTOBACILLUS RHAMNOSUS GG 1 CAPSULE. PO SCH ×2 (08:31→20:28)
[2018-10-12] MEDS: LISINOPRIL 20 MG TABLET PO SCH (08:31)
[2018-10-12] MEDS: LINAGLIPTIN 5 MG TABLET PO SCH (08:32)
[2018-10-12] MEDS: GABAPENTIN 300 MG CAPSULE. PO SCH ×3 (08:32→20:28)
[2018-10-12] MEDS: CLOPIDOGREL BISULFATE 75 MG TABLET PO SCH (08:32)
[2018-10-12] MEDS: predniSONE 20 MG TABLET PO SCH (08:32)
[2018-10-12] MEDS: metFORMIN 500 MG TABLET PO SCH ×3 (08:32→17:11)
[2018-10-12] MEDS: SPIRONOLACTONE 25 MG TABLET PO SCH (08:32)
[2018-10-12] MEDS: FLUTICASONE 50MCG/NASAL SPRAY 16GM BOTTLE. NS SCH (08:32)
[2018-10-12] MEDS: FUROSEMIDE 20 MG TABLET PO SCH (08:32)
--- NOTE | 2018-10-12 08:46 | NUR ---
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 Target range for this patient is: 2 -3 P: Warfarin dose: 7.5 mg Today at 1600 Bridge Therapy: None Next INR due 10/13/18 Pharmacy anticoagulation service will continue to follow. IRINA HSU [facility], 10/12/18 [id number]
[2018-10-12 11:00] VITALS: BP 108/56
--- NOTE | 2018-10-12 13:17 | NUR ---
SW following pt. Spoke with pt about SNU options and provided pt with various SNU brochures that take [facility]. Pt will discuss options with today. Pt aware insurance will need to approve SNU before dc. SW will follow up with Pt on Sunday.
[2018-10-12 15:00] VITALS: BP 130/60
[2018-10-12] MEDS ORDERED: WARFARIN 7.5 MG TABLET. PO ONE (16:00)
[2018-10-12 19:00] VITALS: BP 128/60
[2018-10-12] MEDS: SIMVASTATIN 20 MG TABLET PO SCH (20:28)
[2018-10-12] MEDS: MONTELUKAST SODIUM 10 MG TABLET. PO SCH (20:28)
[2018-10-12] MEDS: ZOLPIDEM 5 MG TABLET. PO PRN (20:29)
[2018-10-12] MEDS: INSULIN GLARGINE 300 UNITS/3 ML INSULN.PEN. SQ SCH (20:39)
[2018-10-12 23:00] VITALS: BP 127/58
[2018-10-13] MEDS: oxyCODONE/APAP 10/325 1 TAB TABLET PO PRN ×4 (01:07→23:40)
[2018-10-13] MEDS: HYDROmorphone 2 MG/ML VIAL IV PRN ×6 (02:10→21:29)
[2018-10-13 03:00] VITALS: BP 109/53
[2018-10-13] MEDS: PIPERACILLIN/TAZOBACTAM 3.375 GM in IV NORMAL SALINE 50ML 50 ML IV SCH ×4 (05:21→23:03)
[2018-10-13 07:00] VITALS: BP 122/61
[2018-10-13 07:26] LABS: PROTHROMBIN TIME PATIENT 15.2 SEC (11.7-14.0)
[2018-10-13] MEDS ORDERED: ALTEPLASE 1MG SYRINGE. INT CAT ONE (07:30)
[2018-10-13] MEDS: IPRATRPIUM/ALBUTEROL 0.5/2.5MG 3 ML NEBU. NEB SCH ×4 (07:40→19:41)
[2018-10-13] MEDS: BUDESONIDE 0.5 MG/2 ML NEBU. NEB SCH ×2 (07:40→19:41)
--- NOTE | 2018-10-13 07:58 | NUR ---
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 Target range for this patient is: 2 -3 P: Warfarin dose: 6 mg Today at 1600 Bridge Therapy: None Next INR due 10/14/18 Pharmacy anticoagulation service will continue to follow. IRINA HSU [facility], 10/13/18 [id number]
[2018-10-13] MEDS: INSULIN LISPRO 300 UNITS/3 ML INSULN.PEN. SQ SCH ×3 (08:00→17:53)
[2018-10-13] MEDS: LACTOBACILLUS RHAMNOSUS GG 1 CAPSULE. PO SCH ×2 (08:41→21:30)
[2018-10-13] MEDS: FLUTICASONE 50MCG/NASAL SPRAY 16GM BOTTLE. NS SCH (08:41)
[2018-10-13] MEDS: FUROSEMIDE 20 MG TABLET PO SCH (08:41)
[2018-10-13] MEDS: POLYETHYLENE GLYCOL 3350 17 GM PACKET. PO SCH (08:41)
[2018-10-13] MEDS: CLOPIDOGREL BISULFATE 75 MG TABLET PO SCH (08:42)
[2018-10-13] MEDS: GABAPENTIN 300 MG CAPSULE. PO SCH ×3 (08:42→21:28)
[2018-10-13] MEDS: predniSONE 20 MG TABLET PO SCH (08:42)
[2018-10-13] MEDS: CARVEDILOL 12.5 MG TABLET. PO SCH ×2 (08:44→17:45)
[2018-10-13] MEDS: metFORMIN 500 MG TABLET PO SCH ×3 (08:44→17:45)
[2018-10-13] MEDS: LISINOPRIL 20 MG TABLET PO SCH (08:45)
[2018-10-13] MEDS: SPIRONOLACTONE 25 MG TABLET PO SCH (08:45)
[2018-10-13] MEDS: LINAGLIPTIN 5 MG TABLET PO SCH (08:48)
--- NOTE | 2018-10-13 10:51 | PDOC ---
PROGRESS NOTES Subjective Subjective Patient continues to improve. Objective Objective Vital Signs Date Time Temp Pulse Resp B/P (MAP) Pulse Ox O2 Delivery O2 Flow Rate FiO2 10/13/18 08:45 82 122/61 10/13/18 08:38 16 99 Room Air 2.0 10/13/18 07:00 98.0 98.0 Intake and Output 10/13/18 07:00 Intake Total 3350 ml Output Total 1900 ml Balance 1450 ml Intake Oral 3350 ml Output Urine Total 1900 ml Physical Exam Abdomen: Normal bowel sounds Heart: Regular rate Extremities: Other (1+ edema) Lungs: Clear to auscultation Assessment Assessment Problems Medical Problems: (1) Cellulitis, leg Status: Acute 1. cellulitis of right lower leg with ulcer 2. PAD 3. DM2 4. HTN 5. COPD 6 Morbid obesity 7. OA feet 8. Venous stasis Plan Plan of Care Continue IV antibx To SNU Sunday Dressing change planned today continue PT/OT Comment Review of Relevant I have reviewed the following items parrish (where applicable) has been applied. Labs Laboratory Tests Test 10/11/18 11:34 10/11/18 20:37 10/12/18 07:21 10/12/18 11:38 Glucose (Fingerstick) 216 mg/dL (70-99) 137 mg/dL (70-99) 87 mg/dL (70-99) 103 mg/dL (70-99) Test 10/12/18 16:58 10/12/18 20:31 10/13/18 06:15 Glucose (Fingerstick) 175 mg/dL (70-99) 206 mg/dL (70-99) Prothrombin Time 15.2 SEC (11.7-14.0) Prothromb Time International Ratio 1.2 (0.8-1.1) Laboratory Tests Test 10/12/18 11:38 10/12/18 16:58 10/12/18 20:31 10/13/18 06:15 Glucose (Fingerstick) 103 mg/dL (70-99) 175 mg/dL (70-99) 206 mg/dL (70-99) Prothrombin Time 15.2 SEC (11.7-14.0) Prothromb Time International Ratio 1.2 (0.8-1.1) Microbiology 10/03/18 Blood Culture - Final, Complete NO GROWTH AFTER 5 DAYS 10/07/18 Anaerobic/Aerobic Culture - Final, Complete 10/07/18 Anaerobic Culture Result 1 (RADHA) - Final, Complete 10/07/18 Aerobic Culture - Final, Complete 10/07/18 Aerobic Culture Result 1 (RADHA) - Final, Complete 10/07/18 Antimicrobic Susceptibility - Final, Complete 10/07/18 Gram Stain - Final, Complete 10/07/18 Gram Stain Result 1 (RADHA) - Final, Complete 10/07/18 Gram Stain Result 2 (RADHA) - Final, Complete Medications Current Medications Vancomycin HCl 250 ml @ 250 mls/hr 1X ONCE IV Last administered on 10/03/18at 20:21; Start 10/03/18 at 18:45; Stop 10/03/18 at 19:44; Status DC Piperacillin Sod/ Tazobactam Sod 3.375 gm/Sodium Chloride 50 ml @ 100 mls/hr 1X ONCE IV Last administered on 10/03/18at 19:29; Start 10/03/18 at 18:45; Stop 10/03/18 at 19:14; Status DC Fentanyl Citrate (Fentanyl 2ml Vial) 50 mcg 1X ONCE IV Last administered on 10/03/18at 19:02; Start 10/03/18 at 18:45; Stop 10/03/18 at 18:46; Status DC Morphine Sulfate (Morphine Sulfate) 4 mg 1X ONCE IV Last administered on 10/03/18at 19:48; Start 10/03/18 at 19:45; Stop 10/03/18 at 19:46; Status DC Ondansetron HCl (Zofran) 4 mg PRN Q8HRS PRN IV NAUSEA/VOMITING; Start 10/03/18 at 19:45; Stop 10/04/18 at 19:44; Status DC Morphine Sulfate (Morphine Sulfate) 4 mg PRN Q2HR PRN IV PAIN Last administered on 10/04/18at 04:36; Start 10/03/18 at 19:45; Stop 10/04/18 at 04:50; Status DC Dextrose (Dextrose 50%-Water Syringe) 12.5 gm PRN Q15MIN PRN IV SEE COMMENTS; Start 10/03/18 at 20:15; Status Cancel Morphine Sulfate (Morphine Sulfate) 2 mg PRN Q4HRS PRN IV MODERATE PAIN; Start 10/04/18 at 05:00; Stop 10/04/18 at 07:13; Status DC Morphine Sulfate (Morphine Sulfate) 4 mg PRN Q4HRS PRN IV SEVERE PAIN; Start 10/04/18 at 05:00; Stop 10/04/18 at 07:13; Status DC Oxycodone/ Acetaminophen (Percocet 5/325) 1 tab PRN Q6HRS PRN PO SEVERE PAIN L ast administered on 10/11/18at 00:39; Start 10/04/18 at 05:00; Stop 10/11/18 at 14:28; Status DC Hydromorphone HCl (Dilaudid) 1 mg PRN Q1HR PRN IV SEVERE PAIN Last administered on 10/05/18at 11:58; Start 10/04/18 at 07:15; Stop 10/05/18 at 14:32; Status DC Vancomycin HCl (Vanco Per Pharmacy) 1 each PRN DAILY PRN MC SEE COMMENTS Last administered on 10/11/18at 12:27; Start 10/04/18 at 07:15; Stop 10/12/18 at 08:35; Status DC Piperacillin Sod/ Tazobactam Sod 3.375 gm/Sodium Chloride 50 ml @ 100 mls/hr Q6HRS IV Last administered on 10/13/18 05:21; Start 10/04/18 at 07:30 Vancomycin HCl 1.75 gm/Sodium Chloride 500 ml @ 250 mls/hr Q12H IV Last administered on 10/05/18 08:19; Start 10/04/18 at 08:00; Stop 10/05/18 at 20:08; Status DC Carvedilol (Coreg) 25 mg BIDWMEALS PO Last administered on 10/13/18at 08:44; Start 10/04/18 at 08:00 Warfarin Sodium (Coumadin) 4 mg DAILY16 PO Last administered on 10/06/18 16:39; Start 10/04/18 at 16:00; Stop 10/07/18 at 11:21; Status DC Lisinopril (Prinivil) 20 mg DAILY PO Last administered on 10/13/18 08:45; Start 10/04/18 at 09:00 Spironolactone (Aldactone) 37.5 mg DAILY PO Last administered on 10/13/18at 08:45; Start 10/04/18 at 09:00 Furosemide (Lasix) 20 mg DAILY PO Last administered on 10/13/18 08:41; Start 10/04/18 at 09:00 Simvastatin (Zocor) 20 mg HS PO Last administered on 10/12/18 20:28; Start 10/04/18 at 21:00 Linagliptin (Tradjenta) 5 mg DAILY PO Last administered on 10/13/18 08:48; Start 10/04/18 at 09:00 Budesonide (Pulmicort) 0.5 mg RTBID NEB Last administered on 10/13/18 07:40; Start 10/04/18 at 08:00 Albuterol Sulfate (Ventolin Neb Soln) 2.5 mg PRN Q4HRS PRN NEB SHORTNESS OF BREATH Last administered on 10/07/18 08:34; Start 10/04/18 at 07:30 Montelukast Sodium (Singulair) 10 mg QHS PO Last administered on 10/12/18 20:28; Start 10/04/18 at 21:00 Fluticasone Propionate (Flonase) 2 spray DAILY NS Last administered on 10/13/18 08:41; Start 10/04/18 at 09:00 Gabapentin (Neurontin) 300 mg TID PO Last administered on 10/13/18 08:42; Start 10/04/18 at 09:00 Insulin Glargine (Lantus) 32 units QHS SQ Last administered on 10/12/18 20:39; Start 10/04/18 at 21:00 Insulin Human Lispro (HumaLOG) 0-5 UNITS TIDWMEALS SQ Last administered on 10/12/18 17:22; Start 10/04/18 at 08:00 Dextrose (Dextrose 50%-Water Syringe) 12.5 gm PRN Q15MIN PRN IV SEE COMMENTS; Start 10/04/18 at 07:30 Metformin HCl (Glucophage) 500 mg TIDWMEALS PO Last administered on 10/04/18 17:01; Start 10/04/18 at 09:00; Stop 10/04/18 at 19:37; Status DC Polyethylene Glycol (miraLAX PACKET) 17 gm DAILY PO Last administered on 10/13/18 08:41; Start 10/04/18 at 09:00 Warfarin Sodium (Coumadin Per Physician) 1 each PRN DAILY PRN MC SEE COMMENTS Last administered on 10/04/18 15:15; Start 10/04/18 at 08:15; Stop 10/07/18 at 11:21; Status DC Vancomycin HCl (Vancomycin Trough Level) 1 each 1X ONCE MC Last administered on 10/05/18 19:30; Start 10/05/18 at 19:30; Stop 10/05/18 at 19:31; Status DC Iohexol (Omnipaque 350 Mg/ml) 95 ml 1X ONCE IV Last administered on 10/04/18 22:30; Start 10/04/18 at 19:45; Stop 10/04/18 at 19:46; Status DC Info (CONTRAST GIVEN -- Rx MONITORING) 1 each PRN DAILY PRN MC SEE COMMENTS; Start 10/04/18 at 19:45; Stop 10/06/18 at 19:44; Status DC Metformin HCl (Glucophage) 500 mg TIDWMEALS PO Last administered on 10/13/18 08 :44; Start 10/07/18 at 08:00 Zolpidem Tartrate (Ambien) 5 mg PRN QHS PRN PO INSOMNIA Last administered on 10/12/18 20:29; Start 10/04/18 at 22:00 Hydromorphone HCl (Dilaudid) 0.5 mg PRN Q2HR PRN IV SEVERE PAIN Last administered on 10/13/18 08:38; Start 10/05/18 at 14:45 Vancomycin HCl 1.5 gm/Sodium Chloride 500 ml @ 250 mls/hr Q12H IV Last administered on 10/12/18 02:04; Start 10/06/18 at 03:00; Stop 10/12/18 at 08:35; Status DC Vancomycin HCl (Vancomycin Trough Level) 1 each 1X ONCE MC Last administered on 10/07/18 14:30; Start 10/07/18 at 14:30; Stop 10/07/18 at 14:31; Status DC Lactobacillus Rhamnosus (Culturelle) 1 cap BID PO Last administered on 10/13/18 08:41; Start 10/06/18 at 21:00 Albuterol/ Ipratropium (Duoneb) 3 ml RTQID NEB Last administered on 5/5/19at 07:40; Start 10/07/18 at 12:00 Phytonadione 10 mg/Dextrose 51 ml @ 102 mls/hr 1X ONCE IV Last administered on 10/09/18at 10:40; Start 10/09/18 at 10:00; Stop 10/09/18 at 10:29; Status DC Iodixanol (Visipaque 320) 100 ml STK-MED ONCE .ROUTE ; Start 10/10/18 at 12:30; Stop 10/10/18 at 12:31; Status DC Lidocaine/Sodium Bicarbonate (Buffered Lidocaine 1%) 3 ml STK-MED ONCE .ROUTE ; Start 10/10/18 at 12:30; Stop 10/10/18 at 12:31; Status DC Heparin Sodium/ Sodium Chloride 1,500 ml @ As Directed STK-MED ONCE .ROUTE ; Start 10/10/18 at 12:30; Stop 10/10/18 at 12:31; Status DC Midazolam HCl (Versed) 5 mg STK-MED ONCE .ROUTE ; Start 10/10/18 at 12:50; Stop 10/10/18 at 12:51; Status DC Fentanyl Citrate (Fentanyl 5ml Vial) 250 mcg STK-MED ONCE .ROUTE ; Start 10/10/18 at 12:50; Stop 10/10/18 at 12:51; Status DC Heparin Sodium (Porcine) (Heparin Sodium) 10,000 unit STK-MED ONCE .ROUTE ; Start 10/10/18 at 12:50; Stop 10/10/18 at 12:51; Status DC Heparin Sodium/ Sodium Chloride (HEPARIN for ARTERIAL LINE FLUSH) 1,000 unit 1X ONCE IART Last administered on 10/10/18at 14:26; Start 10/10/18 at 13:15; Stop 10/10/18 at 13:22; Status DC Lidocaine/Sodium Bicarbonate (Buffered Lidocaine 1%) 3 ml 1X ONCE IJ Last administered on 10/10/18at 13:15; Start 10/10/18 at 13:15; Stop 10/10/18 at 13:22; Status DC Midazolam HCl (Versed) 5 mg 1X ONCE IV Last administered on 10/10/18at 14:26; Start 10/10/18 at 13:15; Stop 10/10/18 at 13:22; Status DC Fentanyl Citrate (Fentanyl 5ml Vial) 250 mcg 1X ONCE IV Last administered on 10/10/18 14:27; Start 10/10/18 at 13:15; Stop 10/10/18 at 13:22; Status DC Iodixanol (Visipaque 320) 100 ml 1X ONCE IART Last administered on 10/10/18 13:15; Start 10/10/18 at 13:15; Stop 10/10/18 at 13:22; Status DC Heparin Sodium/ Sodium Chloride (HEPARIN for ARTERIAL LINE FLUSH) 1,000 unit 1X ONCE IART Last administered on 10/10/18 14:26; Start 10/10/18 at 13:15; Stop 10/10/18 at 13:22; Status DC Heparin Sodium (Porcine) (Heparin Sodium) 5,000 unit 1X ONCE IV Last administered on 10/10/18 14:27; Start 10/10/18 at 13:45; Stop 10/10/18 at 13:47; Status DC Clopidogrel Bisulfate (Plavix) 300 mg 1X ONCE PO Last administered on 10/10/18 14:30; Start 10/10/18 at 14:15; Stop 10/10/18 at 14:18; Status DC Clopidogrel Bisulfate (Plavix) 75 mg DAILYWBKFT PO Last administered on 10/13/18 08:42; Start 10/11/18 at 08:00 Clopidogrel Bisulfate (Plavix) 75 mg STK-MED ONCE .ROUTE ; Start 10/10/18 at 14:17; Stop 10/10/18 at 14:18; Status DC Colchicine (Colcrys) 0.6 mg QID PO Last administered on 10/11/18 20:50; Start 10/11/18 at 09:30; Stop 10/12/18 at 07:45; Status DC Oxycodone/ Acetaminophen (Percocet 10/325) 1 tab PRN Q4HRS PRN PO PAIN Last administered on 10/13/18 05:22; Start 10/11/18 at 14:30 Prednisone (Prednisone) 20 mg DAILY PO Last administered on 10/13/18 08:42; Start 10/12/18 at 09:00 Warfarin Sodium (Coumadin Per Pharmacy) 1 each PRN DAILY PRN MC SEE COMMENTS Last administered on 10/13/18 07:57; Start 10/12/18 at 08:45 Warfarin Sodium (Coumadin) 7.5 mg 1X WARF ONCE PO Last administered on 10/12/18at 16:11; Start 10/12/18 at 16:00; Stop 10/12/18 at 16:01; Status DC Alteplase, Recombinant (Cathflo For Central Catheter Clearance) 1 mg 1X ONCE INT CAT Last administered on 10/13/18at 08:38; Start 10/13/18 at 07:30; Stop 10/13/18 at 07:31; Status DC Warfarin Sodium (Coumadin) 6 mg 1X WARF ONCE PO ; Start 10/13/18 at 16:00; Stop 10/13/18 at 16:01 Active Scripts Active Reported Tramadol Hcl 50 Mg Tablet 50 Mg PO Q6HRS PRN Vitals/I & O Vital Sign - Last 24 Hours 10/12/18 10/12/18 10/12/18 10/12/18 11:00 11:22 12:18 13:17 Temp 98.3 98.3 Pulse 84 Resp 18 B/P (MAP) 108/56 (73) Pulse Ox 93 100 O2 Delivery Room Air Room Air Room Air Room Air 10/12/18 10/12/18 10/12/18 10/12/18 15:00 15:27 16:10 17:11 Temp 98.4 98.4 Pulse 83 83 Resp 14 B/P (MAP) 130/60 (83) 130/60 Pulse Ox 93 100 O2 Delivery Room Air Room Air Room Air 10/12/18 10/12/18 10/12/18 10/12/18 17:12 19:00 19:48 20:00 Temp 98.4 98.4 Pulse 86 Resp 16 B/P (MAP) 128/60 (82) Pulse Ox 93 99 O2 Delivery Room Air Room Air Room Air Room Air 10/12/18 10/12/18 10/12/18 10/13/18 20:27 23:00 23:16 01:07 Temp 98.4 98.4 Pulse 94 Resp 18 16 18 18 B/P (MAP) 127/58 (81) Pulse Ox 99 95 99 99 O2 Delivery Room Air Room Air Room Air Room Air 10/13/18 10/13/18 10/13/18 10/13/18 02:09 02:10 02:40 03:00 Temp 98.4 98.4 Pulse 84 Resp 18 18 B/P (MAP) 109/53 (71) Pulse Ox 99 99 92 O2 Delivery Room Air Room Air Room Air O2 Flow Rate 2.0 2.0 2.0 10/13/18 10/13/18 10/13/18 10/13/18 05:22 06:25 07:00 07:40 Temp 98.0 98.0 Pulse 82 Resp 18 18 16 B/P (MAP) 122/61 (81) Pulse Ox 92 92 95 99 O2 Delivery Room Air Room Air Room Air Room Air 10/13/18 10/13/18 10/13/18 08:38 08:44 08:45 Pulse 82 82 Resp 16 B/P (MAP) 122/61 122/61 Pulse Ox 99 O2 Delivery Room Air O2 Flow Rate 2.0 Intake and Output 10/12/18 10/12/18 10/13/18 15:00 23:00 07:00 Intake Total 750 ml 1500 ml 1100 ml Output Total 350 ml 900 ml 650 ml Balance 400 ml 600 ml 450 ml ALANNA LINARES MD October 13, 2018 10:51
[2018-10-13 11:00] VITALS: BP 119/62
[2018-10-13 14:49] VITALS: BP 131/66
[2018-10-13] MEDS ORDERED: WARFARIN 3 MG TABLET. PO ONE (16:00)
[2018-10-13 19:00] VITALS: BP 113/49
[2018-10-13] MEDS: ZOLPIDEM 5 MG TABLET. PO PRN (21:28)
[2018-10-13] MEDS: MONTELUKAST SODIUM 10 MG TABLET. PO SCH (21:28)
[2018-10-13] MEDS: SIMVASTATIN 20 MG TABLET PO SCH (21:28)
[2018-10-13] MEDS: INSULIN GLARGINE 300 UNITS/3 ML INSULN.PEN. SQ SCH (21:37)
[2018-10-13 23:00] VITALS: BP 111/47
[2018-10-14 03:00] VITALS: BP 153/75
[2018-10-14] MEDS: oxyCODONE/APAP 10/325 1 TAB TABLET PO PRN ×3 (05:24→20:13)
[2018-10-14] MEDS: PIPERACILLIN/TAZOBACTAM 3.375 GM in IV NORMAL SALINE 50ML 50 ML IV SCH ×4 (05:25→23:08)
[2018-10-14 07:00] VITALS: BP 140/72
[2018-10-14 07:14] LABS: PROTHROMBIN TIME PATIENT 15.7 SEC (11.7-14.0)
[2018-10-14] MEDS: INSULIN LISPRO 300 UNITS/3 ML INSULN.PEN. SQ SCH ×3 (08:00→17:18)
[2018-10-14] MEDS: SPIRONOLACTONE 25 MG TABLET PO SCH (08:12)
[2018-10-14] MEDS: LACTOBACILLUS RHAMNOSUS GG 1 CAPSULE. PO SCH ×2 (08:12→20:13)
[2018-10-14] MEDS: POLYETHYLENE GLYCOL 3350 17 GM PACKET. PO SCH (08:12)
[2018-10-14] MEDS: FUROSEMIDE 20 MG TABLET PO SCH (08:13)
[2018-10-14] MEDS: FLUTICASONE 50MCG/NASAL SPRAY 16GM BOTTLE. NS SCH (08:13)
[2018-10-14] MEDS: CLOPIDOGREL BISULFATE 75 MG TABLET PO SCH (08:13)
[2018-10-14] MEDS: CARVEDILOL 12.5 MG TABLET. PO SCH ×2 (08:13→17:13)
[2018-10-14] MEDS: GABAPENTIN 300 MG CAPSULE. PO SCH ×3 (08:14→20:13)
[2018-10-14] MEDS: predniSONE 20 MG TABLET PO SCH (08:14)
[2018-10-14] MEDS: LINAGLIPTIN 5 MG TABLET PO SCH (08:14)
[2018-10-14] MEDS: metFORMIN 500 MG TABLET PO SCH ×3 (08:14→17:14)
[2018-10-14] MEDS: LISINOPRIL 20 MG TABLET PO SCH (08:14)
[2018-10-14] MEDS: IPRATRPIUM/ALBUTEROL 0.5/2.5MG 3 ML NEBU. NEB SCH ×4 (08:32→20:05)
[2018-10-14] MEDS: BUDESONIDE 0.5 MG/2 ML NEBU. NEB SCH ×2 (08:33→20:05)
--- NOTE | 2018-10-14 09:41 | NUR ---
SW following pt. Spoke with Pt who requested SNU eval at [facility] but facility is out of network with [facility]. Pt and agreeable with SNU eval at [facility] and [facility]. SW phoned and faxed referral to mentioned facilities. Pt acceptance and admission pending. Will continue to follow. RANJAN MORENO.
[2018-10-14 11:01] VITALS: BP 141/66
--- NOTE | 2018-10-14 12:07 | NUR ---
SW following Pt. Pt has been accepted at both [facility] and [facility]. Spoke with pt regarding preference and he stated his is on her way and they will notify SW with a choice. SW discussed with pt as insurance approval is needed/takes time, they will need to make a decision today. Will continue to follow.
--- NOTE | 2018-10-14 14:11 | NUR ---
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 Target range for this patient is: 2 -3 P: Warfarin dose: 6 mg Today at 1600 Bridge Therapy: None Next INR due IN AM Pharmacy anticoagulation service will continue to follow. ZARIA LEE [facility], 10/14/18 [id number]
[2018-10-14 14:58] VITALS: BP 155/62
[2018-10-14] MEDS ORDERED: FURO20TA3 PO (15:44)
[2018-10-14] MEDS ORDERED: POLY17PO28 PO (15:44)
[2018-10-14] MEDS ORDERED: WARF3TAB54 PO (15:44)
[2018-10-14] MEDS ORDERED: LISI-130 PO (15:44)
[2018-10-14] MEDS ORDERED: CLOP75TA PO (15:44)
[2018-10-14] MEDS ORDERED: SIMV20TA3 PO (15:44)
[2018-10-14] MEDS ORDERED: LINA5TAB PO (15:44)
[2018-10-14] MEDS ORDERED: WARF10TA45 MC (15:44)
[2018-10-14] MEDS ORDERED: IPRA3AMP29 NEB (15:44)
[2018-10-14] MEDS ORDERED: MONT10TA9 PO (15:44)
[2018-10-14] MEDS ORDERED: ZOLP5TAB PO (15:44)
[2018-10-14] MEDS ORDERED: SPIR25TA PO (15:44)
[2018-10-14] MEDS ORDERED: CARV12.511 PO (15:44)
[2018-10-14] MEDS ORDERED: INSU100I11 SQ (15:44)
[2018-10-14] MEDS ORDERED: FLUT16SP NS (15:44)
[2018-10-14] MEDS ORDERED: GABA300C18 PO (15:44)
[2018-10-14] MEDS ORDERED: INSU100I13 SQ (15:44)
[2018-10-14] MEDS ORDERED: LACT1CAP19 PO (15:44)
[2018-10-14] MEDS ORDERED: METF500T PO (15:44)
[2018-10-14] MEDS ORDERED: AMOX1TAB61 PO (15:45)
--- NOTE | 2018-10-14 15:56 | SNU/HH DC ---
DISCHARGE ORDERS DISCHARGE INFORMATION: DISCHARGE DATE: October 14, 2018 FINAL DIAGNOSIS Problems Medical Problems: (1) Cellulitis, leg Status: Acute CONDITION ON DISCHARGE: Stable CODE STATUS: Code Status: Full NURSING HOME: SNF STAY <30 DAYS: Yes POST DISCHARGE ORDERS: ACTIVITY ORDERS: Activity as tolerated WEIGHT BEARING STATUS: As tolerated DIET AFTER DISCHARGE: ADA WOUND/INCISION CARE: Other, see below (per wound care staff) FOLLOW-UP: PHYSICIAN FOLLOW-UP: 1-2 weeks after SNU discharge TREATMENT/EQUIPMENT ORDERS: ADAPTIVE EQUIPMENT NEEDED: None Physical Therapy For: Evalulation/Treatment Occupational Therapy For: Evaluation/Treatment DISCHARGE MEDICATIONS: Home Meds Active Scripts Amoxicillin/Potassium Clav (AUGMENTIN 875-125 TABLET) 1 Each Tablet, 1 TAB PO BID for infection, #14 TAB Prov:Todd RICH MD 10/14/18 Warfarin Sodium (COUMADIN) 3 Mg Tablet, 6 MG PO 1X WARF for blood thinner for 30 Days, #60 TAB Prov:Todd RICH MD 10/14/18 Warfarin Sodium (COUMADIN) 10 Mg Tablet, 1 EACH MC PRN DAILY PRN for SEE COMMENTS for 30 Days, TAB Prov:Todd RICH MD 10/14/18 Zolpidem Tartrate (AMBIEN) 5 Mg Tablet, 5 MG PO PRN QHS PRN for INSOMNIA for 30 Days, #30 TAB Prov:Todd RICH MD 10/14/18 Insulin Lispro (HUMALOG) 100 Unit/1 Ml Insuln.pen, 0 UNITS SQ TIDWMEALS for dm for 30 Days, #1 EACH Prov:Todd RICH MD 10/14/18 Insulin Glargine,Hum.rec.anlog (LANTUS SOLOSTAR) 100 Unit/1 Ml Insuln.pen, 32 UNITS SQ QHS for diabetes for 30 Days, #1 EACH Prov:Todd RICH MD 10/14/18 Linagliptin (TRADJENTA) 5 Mg Tablet, 5 MG PO DAILY for diabetes for 30 Days, #30 TAB Prov:Todd RICH MD 10/14/18 Metformin Hcl (GLUCOPHAGE) 500 Mg Tablet, 500 MG PO TIDWMEALS for diabestes for 30 Days, #90 TAB Prov:Todd RICH MD 10/14/18 Lactobacillus Rhamnosus Gg (CULTURELLE) 1 Each Cap.sprink, 1 CAP PO BID for probiotic for 30 Days, #60 CAP Prov:Todd RICH MD 10/14/18 Polyethylene Glycol 3350 (POLYETHYLENE GLYCOL 3350) 17 Gm Powd.pack, 17 GM PO DAILY for constipation for 30 Days, #30 PKT Prov:Todd RICH MD 10/14/18 Fluticasone Propionate (FLUTICASONE PROPIONATE NASAL SPRAY) 16 Gm [place].susp, 2 SPRAY NS DAILY for allergies for 30 Days, #1 SPRAY Prov:Todd RICH MD 10/14/18 Montelukast Sodium (MONTELUKAST SODIUM TABLET) 10 Mg Tablet, 10 MG PO QHS for asthma/allergies for 30 Days, #30 TAB Prov:Todd RICH MD 10/14/18 Furosemide (FUROSEMIDE) 20 Mg Tablet, 20 MG PO DAILY for swelling for 30 Days, #30 TAB Prov:Todd RICH MD 10/14/18 Gabapentin (GABAPENTIN) 300 Mg Capsule, 300 MG PO TID for neuropathy for 30 Days, #90 CAP Prov:Todd RICH MD 10/14/18 Spironolactone (ALDACTONE) 25 Mg Tablet, 37.5 MG PO DAILY for swelling for 30 Days, #45 TAB Prov:Todd RICH MD 10/14/18 Lisinopril (LISINOPRIL) 40 Mg Tablet, 20 MG PO DAILY for bp for 30 Days, #15 TAB Prov:Todd RICH MD 10/14/18 Carvedilol (CARVEDILOL ) 12.5 Mg Tablet, 25 MG PO BIDWMEALS for bp for 30 Days, #120 TAB Prov:Todd RICH MD 10/14/18 Simvastatin (SIMVASTATIN) 20 Mg Tablet, 20 MG PO HS for cholesterol for 30 Days, #30 TAB Prov:Todd RICH MD 10/14/18 Clopidogrel Bisulfate (CLOPIDOGREL) 75 Mg Tablet, 75 MG PO DAILYWBKFT for stent blood thinner for 30 Days, #30 TAB Prov:Todd RICH MD 10/14/18 Ipratropium/Albuterol Sulfate (DUONEB 0.5-3(2.5) MG/3 ML) 3 Ml Ampul.neb, 3 ML NEB RTQID for breathing for 30 Days, #120 EACH Prov:Todd RICH MD 10/14/18 Reported Medications Tramadol Hcl (TRAMADOL HCL) 50 Mg Tablet, 50 MG PO Q6HRS PRN for PAIN, TAB 10/04/18 Todd RICH MD October 14, 2018 15:56
--- NOTE | 2018-10-14 15:56 | NUR ---
Spoke with pt's in room who reported she had visited [facility] and would like Pt to go there upon dc. Discussed with Clarisse at [facility] to submit for auth. Insurance auth pending. Will continue to follow.
[2018-10-14] MEDS ORDERED: WARFARIN 3 MG TABLET. PO ONE (16:00)
--- NOTE | 2018-10-14 16:05 | PDOC ---
PROGRESS NOTES Subjective Pain better, redness better, happy to go to SNU for PT/OT and wound care, no weekend issues although needed alteplase to get PICC flow despite being on warfarin and Plavix Objective Afebrile General: NAD Heart: irreg, rate controlled Lungs: CTA Abd: obese but soft Ext: right leg erythema improved, espinoza dry and more scaly as edema has improved, dressing in place, left 1st toe pain resolved Vital Signs Vital Signs Date Time Temp Pulse Resp B/P (MAP) Pulse Ox O2 Delivery O2 Flow Rate FiO2 10/14/18 15:29 Room Air 10/14/18 14:58 97.5 94 14 155/62 (93) 92 97.5 10/14/18 12:07 2.0 I & O Intake and Output 10/14/18 07:00 Intake Total 3800 ml Output Total 3000 ml Balance 800 ml Intake Oral 3800 ml Output Urine Total 3000 ml # Voids 2 # Bowel Movements 1 Assessment and Plan Problems Medical Problems: (1) Cellulitis, leg - to SNU when approved by insurance, IV abx until then then switch to po Status: Acute Todd RICH MD October 14, 2018 16:05
[2018-10-14 19:00] VITALS: BP 115/63
[2018-10-14] MEDS: SIMVASTATIN 20 MG TABLET PO SCH (20:12)
[2018-10-14] MEDS: MONTELUKAST SODIUM 10 MG TABLET. PO SCH (20:13)
[2018-10-14] MEDS: ZOLPIDEM 5 MG TABLET. PO PRN (20:13)
[2018-10-14] MEDS: INSULIN GLARGINE 300 UNITS/3 ML INSULN.PEN. SQ SCH (20:20)
[2018-10-14 22:34] VITALS: BP 140/67
[2018-10-15] MEDS: oxyCODONE/APAP 10/325 1 TAB TABLET PO PRN ×3 (00:46→14:13)
[2018-10-15 02:38] VITALS: BP 134/67
[2018-10-15] MEDS: PIPERACILLIN/TAZOBACTAM 3.375 GM in IV NORMAL SALINE 50ML 50 ML IV SCH ×2 (05:25→11:59)
[2018-10-15 05:58] LABS: PROTHROMBIN TIME PATIENT 17.4 SEC (11.7-14.0)
[2018-10-15 06:30] VITALS: BP 131/65
[2018-10-15] MEDS: IPRATRPIUM/ALBUTEROL 0.5/2.5MG 3 ML NEBU. NEB SCH ×3 (07:29→15:48)
[2018-10-15] MEDS: BUDESONIDE 0.5 MG/2 ML NEBU. NEB SCH (07:30)
[2018-10-15] MEDS: INSULIN LISPRO 300 UNITS/3 ML INSULN.PEN. SQ SCH ×2 (08:00→12:00)
[2018-10-15] MEDS: GABAPENTIN 300 MG CAPSULE. PO SCH ×2 (08:11→14:06)
[2018-10-15] MEDS: CARVEDILOL 12.5 MG TABLET. PO SCH (08:12)
[2018-10-15] MEDS: LACTOBACILLUS RHAMNOSUS GG 1 CAPSULE. PO SCH (08:12)
[2018-10-15] MEDS: CLOPIDOGREL BISULFATE 75 MG TABLET PO SCH (08:14)
[2018-10-15] MEDS: SPIRONOLACTONE 25 MG TABLET PO SCH (08:14)
[2018-10-15] MEDS: FUROSEMIDE 20 MG TABLET PO SCH (08:14)
[2018-10-15] MEDS: LINAGLIPTIN 5 MG TABLET PO SCH (08:14)
[2018-10-15] MEDS: LISINOPRIL 20 MG TABLET PO SCH (08:15)
[2018-10-15] MEDS: metFORMIN 500 MG TABLET PO SCH ×2 (08:15→12:00)
[2018-10-15] MEDS: predniSONE 20 MG TABLET PO SCH (08:15)
[2018-10-15] MEDS: POLYETHYLENE GLYCOL 3350 17 GM PACKET. PO SCH (08:16)
[2018-10-15] MEDS: FLUTICASONE 50MCG/NASAL SPRAY 16GM BOTTLE. NS SCH (08:17)
[2018-10-15] MEDS ORDERED: OXYC1TAB19 PO (09:06)
[2018-10-15 11:04] VITALS: BP 133/70
--- NOTE | 2018-10-15 12:49 | NUR ---
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 Target range for this patient is: 2 -3 P: Warfarin dose: 5 mg Today at 1600 Bridge Therapy: None Next INR due tomorrow Pharmacy anticoagulation service will continue to follow. Denisha Washington RPH, 10/15/18 [id number]
--- NOTE | 2018-10-15 14:31 | NUR ---
IRAJ following pt. Insurance has approved SNU. Orders faxed to [facility] and Packet on chart. Pt will transport via [facility] w/c van at 1600. Pt aware of plan and agreeable. He reported he will notify his regarding dc plan. RANJAN MORENO.
[2018-10-15 15:00] VITALS: BP 155/83
[2018-10-15] MEDS ORDERED: WARFARIN 5 MG TABLET. PO ONE (16:00)
--- NOTE | 2018-10-15 16:12 | NUR ---
Patient discharged from hospital via wheelchair van to SNF, in stable condition.
--- NOTE | 2018-10-15 16:12 | NUR ---
Nurse Exchange Report called to [facility]
--- NOTE | 2018-10-15 17:22 | PDOC3 ---
Discharge Summary [facility] Date of Admission: Oct 03, 2018 Discharge Date: October 15, 2018 Admitting Diagnosis right leg cellulitis Final Diagnosis Problems Medical Problems: (1) Cellulitis, leg Status: Acute CONSULTS IR, Vascular Procedures right SFA stent placement, PICC line placement Brief Hospital Course Mr. Perez is a 63 old who presented with pain, redness and swelling of right lower leg with ulcerations, failed to improve with outpatient antibiotics and wound care and developed increasing pain worrisom for claudication and admitted with the following addressed: 1. cellulitis of right lower leg with ulcer - wound care, IV Zosyn, converted to po augmentin 2. PAD - Stent of SFA - started on clopidogrel 3. DM2 - home meds continued, diabetic diet 4. HTN - home meds continued 5. COPD - neb treatments provided 6 Morbid obesity 7. OA feet -- uric acid was normal, Xray showed OA changes 8. Venous stasis addressed by wound care 9. Debility - while he was confined to bed due to pain, he developed weakness with PT/OT recommending SNU 10. hx of DVT/PE/ AICD for ICM - warfarin held and reversed with Vit K for aortogram, resumed after stent but not yet therapeutic, pharmacy managed Patient History: Patient reports no known family medical history. Disposition snf - [facility] CONDITION AT DISCHARGE: Improved, Stable Diet diabetic Scheduled Amoxicillin/Potassium Clav (Augmentin 875-125 Tablet), 1 TAB PO BID Carvedilol (Carvedilol ), 25 MG PO BIDWMEALS Clopidogrel Bisulfate (Clopidogrel), 75 MG PO DAILYWBKFT Fluticasone Propionate (Fluticasone Propionate Nasal [place]), 2 SPRAY NS DAILY Furosemide (Furosemide), 20 MG PO DAILY Gabapentin (Gabapentin), 300 MG PO TID Insulin Glargine,Hum.rec.anlog (Lantus Solostar), 32 UNITS SQ QHS Insulin Lispro (Humalog), 0 UNITS SQ TIDWMEALS Ipratropium/Albuterol Sulfate (Duoneb 0.5-3(2.5) Mg/3 Ml), 3 ML NEB RTQID Lactobacillus Rhamnosus Gg (Culturelle), 1 CAP PO BID Linagliptin (Tradjenta), 5 MG PO DAILY Lisinopril (Lisinopril), 20 MG PO DAILY Metformin Hcl (Glucophage), 500 MG PO TIDWMEALS Montelukast Sodium (Montelukast Sodium Tablet), 10 MG PO QHS Polyethylene Glycol 3350 (Polyethylene Glycol 3350), 17 GM PO DAILY Simvastatin (Simvastatin), 20 MG PO HS Spironolactone (Aldactone), 37.5 MG PO DAILY Warfarin Sodium (Coumadin), 6 MG PO 1X WARF Scheduled PRN Oxycodone/Apap 7.5-325 (Percocet 7.5-325 Mg Tablet ), 1 TAB PO PRN Q6HRS PRN for PAIN Tramadol Hcl (Tramadol Hcl), 50 MG PO Q6HRS PRN for PAIN, (Reported) Warfarin Sodium (Coumadin), 1 EACH MC PRN DAILY PRN for SEE COMMENTS Follow Up 1-2 weeks after SNU discharge Todd RICH MD October 15, 2018 17:22
== END 2018-10-15 16:12 | DRG 253 ==
LOC: ER 17:12 → 5 NORTH 19:35
PROVIDERS: ADMIT Family Medicine; ATTEND Family Medicine
PROC: 02HV33Z Insertion of Infusion Device into Superior Vena Cava, Percutaneous Approach (ICD-10-PCS; 2018-10-05)
PROC: 047K3DZ Dilation of Right Femoral Artery with Intraluminal Device, Percutaneous Approach (ICD-10-PCS; principal; 2018-10-10)
PROC: B41C1ZZ Fluoroscopy of Pelvic Arteries using Low Osmolar Contrast (ICD-10-PCS; 2018-10-10)
PROC: B41F1ZZ Fluoroscopy of Right Lower Extremity Arteries using Low Osmolar Contrast (ICD-10-PCS; 2018-10-10)
DX: E11.51 Type 2 diabetes mellitus with diabetic peripheral angiopathy without gangrene (principal); L03.115 Cellulitis of right lower limb; E87.1 Hypo-osmolality and hyponatremia; I42.8 Other cardiomyopathies; E44.1 Mild protein-calorie malnutrition; L97.819 Non-pressure chronic ulcer of other part of right lower leg with unspecified severity; E11.42 Type 2 diabetes mellitus with diabetic polyneuropathy; I11.0 Hypertensive heart disease with heart failure; I50.9 Heart failure, unspecified; D64.9 Anemia, unspecified; J44.9 Chronic obstructive pulmonary disease, unspecified; I87.8 Other specified disorders of veins; E78.00 Pure hypercholesterolemia, unspecified; E66.01 Morbid (severe) obesity due to excess calories; F12.90 Cannabis use, unspecified, uncomplicated; E78.5 Hyperlipidemia, unspecified; Z79.4 Long term (current) use of insulin; Z95.810 Presence of automatic (implantable) cardiac defibrillator; Z86.718 Personal history of other venous thrombosis and embolism; Z79.01 Long term (current) use of anticoagulants; Z79.899 Other long term (current) drug therapy; K59.00 Constipation, unspecified; Z87.891 Personal history of nicotine dependence; Z86.711 Personal history of pulmonary embolism; Z74.01 Bed confinement status; E11.622 Type 2 diabetes mellitus with other skin ulcer
CPT/HCPCS: 36415; 36569; 37226; 71045; 73590; 73620; 73630; 73706; 75625; 75710; 76937; 80048; 80053; 80202; 82565; 82962; 83036; 83605; 84550; 85025; 85610; 85651; 85730; 86140; 87040; 87071; 87075; 87186; 93926; 93971; 94640; 94760; 96365; 96367; 96375; 99152; 99153; C1713; C1725; C1760; C1769; C1892; C1894; G0269; J1170; J1644; J1815; J2250; J2270; J2543; J3010; J3370; J3430; J7040; J7512; J7613; J7620; J7626; Q9967; 97110; 97116; 97530; 97535; 99285-25